=== PATIENT | female | born 1960 ===

== ENCOUNTER 2023-09-09 11:25 | Outpatient (AMB) | payer OTHER, SELFPAY ==
--- NOTE | 2023-09-09 11:26 | HO.NEPHOV ---
HPI HPI Comments History of Present Illness Details Middle-aged woman with the history of obesity and hypertension. She continues to struggle with her weight. She has no specific complaints today [facility] Social History (Updated 09/09/23 @ 11:29 by Kathy Schmidt MA) Alcohol intake: never Patient Tobacco Use Status: Never used Tobacco Vital Signs 09/09/23 11:27 Height 5 ft 4 in Weight 236 lb BMI 40.5 BP 124/80 Blood Pressure Location Lt brachial Position Sitting Pulse 67 Pulse Source Pulse Oximeter Pulse Oximetry (%) 99 Oxygen Delivery Method Room Air Physical Exam Vital Signs: Last Vital Signs Pulse 67 09/09/23 11:27 BP 124/80 09/09/23 11:27 Pulse Ox 99 09/09/23 11:27 Oxygen Delivery Method Room Air 09/09/23 11:27 BMI result Body Mass Index 40.5 Const General: comfortable Nutritional Appearance: well nourished Orientation/consciousness: patient oriented x3 HEENT Head: No normal to inspection Mouth: moist mucous membranes Neck Neck: Yes supple and Yes no JVD Resp Auscultation: clear to auscultation bilaterally, no rales and rub present Cardio Jugular venous distension: no JVD Palpation: no palpable S3 and no palpable S4 Heart sounds: no rubs GI Palpation (GI): Soft to palpation and nontender Percussion: No Fluid wave present General: Yes no CVA tenderness Back/Spine/Pelvis Back: no CVA tenderness Skin General skin exam: no rashes or lesions noted Neuro General: patient oriented x3 Extrem General: Yes no pedal edema and No clubbing Assessment & Plan Assessment & Plan (1) HTN (hypertension): Code(s): I10 - Essential (primary) hypertension (2) Obesity: Code(s): E66.9 - Obesity, unspecified Plan Middle-aged woman with obesity and hypertension. Blood pressure is well controlled at this time. I have not made any changes to her medications I have encouraged her to stay on low-sodium diet. At her request I a rehab referred her to the weight management clinic. Orders: Referrals Medical Weight Management Referral E66.9 - Obesity, unspecified, I10 - Essential (primary) hypertension Coding Level of Care Code Est Pt Level 4 (32660) Diagnoses HTN (hypertension) I10 Obesity E66.9 Results Reviewed Results Reviewed: Labs labs pending Nephrology Results: No Data to Display
[2023-09-09 11:27] VITALS: BP 124/80; PULSE 67; O2SAT 99; BMI 40.5
== END 2023-09-09 11:45 | disposition home or self-care (01) ==
PROVIDERS: PCP Internal Medicine; Visit Provider Internal Medicine Hypertension Specialist
DX: I10 Essential (primary) hypertension (principal); E66.9 Obesity, unspecified
CPT/HCPCS: 99214

== ENCOUNTER → 2023-09-09 11:25 | Outpatient (BNVA) | payer OTHER, SELFPAY | PROVIDERS: PCP Internal Medicine; Visit Provider Internal Medicine Hypertension Specialist | DX: I10 Essential (primary) hypertension (principal); E66.9 Obesity, unspecified; Z68.41 Body mass index [BMI] 40.0-44.9, adult | CPT/HCPCS: 99212 ==

== ENCOUNTER → 2023-09-28 08:44 | Outpatient (BNVA) | payer OTHER, SELFPAY | PROVIDERS: PCP Internal Medicine; Visit Provider Surgery ==

== ENCOUNTER 2023-10-22 13:00 | Outpatient (AMB) | payer OTHER, SELFPAY ==
--- NOTE | 2023-10-22 13:03 | MHC.OFFVISWM ---
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 . Her goal is to lose weigh about 197 lbs (30 lbs loss). She reports first being concerned about her weight when started developing medical conditions about 2 years ago. . She has tried multiple methods of weight loss including stopped junk food and eating healthier and increased exercise without permanent results. She lives alone. She is retired. Was given BP med by her PCP , has not been taking and can't the bottle today. SBP yesterday at medical office was 119 per patient. Has DOC - but doesn't use CPAP She has made the following meal changes over the last 2 months - has lost 16 lbs She wakes at: 5-6 am, bed at 10 - 11 pm Breakfast: Diet Snapple. 9am - feliciano and eggs Lunch: skips lunch 1-2 d/ week. Tuna salad - whole can, lettuce and tomato with 0 carb tortilla. Diet Gatorade Dinner: 6pm -fish and spinach (butter) with cauliflower rice. water After dinner: 11 pm- Yogurt, Chobani 0 sugar Other snacks: sugar free jello - once per day. Liquids: rare gingerale, no fruit juice Alcohol intake: none, tobacco: none, marijuana: none Exercise: Chair exercises x up to 30 minutes, 7 days per week. Charisse video - once Last mammogram: 2022 Last pap smear: not needed control method: post menopausal colonoscopy - 2 years ago DESIRAE:0 ESS:12 GERD:20 QOL:112 [facility] Surgical History (Updated 09/28/23 @ 09:02 by Alexia Geronimo CMA) No history of previous surgery Family History (Updated 09/28/23 @ 09:05 by Alexia Geronimo CMA) Mother Alzheimer disease Father Cancer Son No problems noted. Son No problems noted. Daughter No problems noted. Social History (Updated 09/09/23 @ 11:29 by Kathy Schmidt MA) Alcohol intake: never Patient Tobacco Use Status: Never used Tobacco Assessment & Plan Assessment & Plan (1) Morbid obesity: Code(s): E66.01 - Morbid (severe) obesity due to excess calories Plan: This is a 63 yo woman with morbid obesity and HTN who will start MWL. Blood work has been ordered. She will start MWL classes and watch all classes before appt with Yanira. Should have BMI less than 30 - weight less than 175. 1. Adequate sleep of 7-8 hours per night discussed 2. Healthy meal plan - stop skipping meals and stop Gatorade and Diet Snapple sweetened drinks All meals/MR's need to take 20 minutes to complete. 9 am - protein shake with water or UAM (Premeir or Orgain - if powder mix with 8 oz water) 12 pm - can of tuna or grilled chicken with salad - no tortilla 3 pm- yogurt 6 pm- dinner of 12 forks lean protein, 12 forks vegetable, 1 cup berries Exercise - Chair exercises every day. LS 1 mile videos- 17 minutes every day Pt will purchase body composition analyzer (recommended list given to patient) and weight herself weekly. Next appt with Yanira in 4 weeks, in 8 weeks. Text me with any questions and weekly weights Mondays. Patient is morbidly obese and is not considered stable at this time.?I spent a total of 60 minutes reviewing/updating records, examining the patient and counseling the patient on weight management as detailed above. (2) HTN (hypertension): Code(s): I10 - Essential (primary) hypertension Plan: MUST take her HTN meds and discuss with PCP (3) Obstructive sleep apnea: Comment: not using CPAP Code(s): G47.33 - Obstructive sleep apnea (adult) (pediatric) Plan: discussed why treatment of DOC is essential (4) GERD with apnea: Code(s): K21.9 - Gastro-esophageal reflux disease without esophagitis; R06.81 - Apnea, not elsewhere classified Plan: see above Telehealth Telehealth Location of provider rendering services: practice address Location of patient: address on file Patient Identification confirmed using: Name, : Yes Telehealth method: video Patient verbally consented to treatment: Yes Patient verbally consented to billing insurance company: Yes Patient informed of any privacy concerns related to visit: Yes Coding Level of Care Code Tele New Pt Level 5 (45753) Diagnoses Morbid obesity E66.01 HTN (hypertension) I10 Obstructive sleep apnea G47.33 GERD with apnea K21.9; R06.81
== END 2023-10-22 13:50 | disposition home or self-care (01) ==
LOC: HO.HBS 13:35
PROVIDERS: PCP Internal Medicine; Visit Provider Physician Assistant
DX: E66.01 Morbid (severe) obesity due to excess calories (principal); I10 Essential (primary) hypertension; G47.33 Obstructive sleep apnea (adult) (pediatric); K21.9 Gastro-esophageal reflux disease without esophagitis; R06.81 Apnea, not elsewhere classified
CPT/HCPCS: 99443

== ENCOUNTER → 2023-10-22 13:00 | Outpatient (BNVA) | payer OTHER, SELFPAY | PROVIDERS: PCP Internal Medicine; Visit Provider Physician Assistant ==

== ENCOUNTER 2023-11-25 14:10 | Outpatient (AMB) | payer OTHER, SELFPAY ==
--- NOTE | 2023-11-25 13:13 | MHC.AMNUTRGE ---
Intake Intake Visit Reasons: VIDEO initial nutrition MWL Allergies Bactrim Allergy (Unknown, Uncoded 09/06/19 00:00) diarrhea Cyclobenzaprine Allergy (Unknown, Uncoded 09/06/19 00:00) itching Pain Meds Allergy (Unknown, Uncoded 09/06/19 00:00) vomiting Penicillins Allergy (Unknown, Uncoded 09/06/19 00:00) rash Sulfamethoxazole Allergy (Unknown, Uncoded 09/06/19 00:00) nausea and vomiting HPI Nutrition Presentation Reason for consult elevated BMI Unstable SDH Reports transportation Diet Assmnt Details Pt started last month with MWL but states she doesn't feel she is doing well. I thought I could do this on my own but I need surgery If i know I am having surgery I will stick to the plan , Not being able to eat certain things is too hard Todays intake 1 egg with 2 pieces of feliciano salad with tuna, spinach 6-7pm dinner Dietary counseling reduction Diagnosis Nutrition problem #1 overweight/obesity As related to (etiology) #1 excess energy intake and physical inactivity As evidenced by (sign/symptom) #1 high BMI Monitoring/Goals Nutrition problem monitoring total energy intake, level of knowledge/skill, total PRO intake, total CHO intake and weight Outcome progress not progressing Learning/Education Readiness to learn fair Stages of change contemplation Most Recent Diabetes Results: No Data to Display [facility] Surgical History (Updated 09/28/23 @ 09:02 by Alexia Geronimo CMA) No history of previous surgery Family History (Updated 09/28/23 @ 09:05 by Alexia Geronimo CMA) Mother Alzheimer disease Father Cancer Son No problems noted. Son No problems noted. Daughter No problems noted. Social History (Updated 09/09/23 @ 11:29 by Kathy Schmidt MA) Alcohol intake: never Patient Tobacco Use Status: Never used Tobacco Assessment & Plan Assessment & Plan (1) Morbid obesity: Code(s): E66.01 - Morbid (severe) obesity due to excess calories Plan long discussion regarding internal vs external motivation. She still feels that she wants to pursue bariatric surgery but needs to address expectations and intentions . educated pt today on post op nutrition as well as general nut recs for weight loss. Telehealth Telehealth Location of provider rendering services: practice address Location of patient: address on file Patient Identification confirmed using: Name, : Yes Telehealth method: voice only Patient verbally consented to treatment: Yes Patient verbally consented to billing insurance company: Yes Patient informed of any privacy concerns related to visit: Yes Minutes spent on Phone/Video with Pt.: 30 Coding Level of Care Code Nutr Indiv Intake (20538) Diagnoses Morbid obesity E66.01 Time Spent (min) 30
== END 2023-11-25 14:22 | disposition home or self-care (01) ==
LOC: HO.HBS 14:11
PROVIDERS: PCP Internal Medicine; Visit Provider Dietitian, Registered
DX: E66.01 Morbid (severe) obesity due to excess calories (principal)

== ENCOUNTER → 2023-11-25 14:10 | Outpatient (BNVA) | payer OTHER, SELFPAY | PROVIDERS: PCP Internal Medicine; Visit Provider Dietitian, Registered | DX: E66.01 Morbid (severe) obesity due to excess calories (principal) | CPT/HCPCS: 97802 ==

== ENCOUNTER 2023-12-16 07:29 | Outpatient (REF) | payer OTHER, SELFPAY ==
--- NOTE | ~2023-12-16 | XR_ITS ---
EXAMINATION: XR CHEST CLINICAL INFORMATION: Morbid (severe) obesity due to excess calories COMPARISON: None available. TECHNIQUE: 2 views of the chest were obtained. FINDINGS: No significant abnormality is noted involving the heart, lungs, mediastinum, bony thorax or soft tissues. XR/XR chest 2V IMPRESSION: No acute cardiopulmonary disease.
--- NOTE | ~2023-12-16 | US_ITS ---
EXAMINATION: US COMPLETE ABDOMEN WITH LIVER ELASTOGRAPHY CLINICAL INFORMATION: Morbid obesity. COMPARISON: None available. TECHNIQUE: Real-time imaging of the abdominal viscera. Noninvasive ultrasound liver fibrosis assessment is performed using Ann ElastPQ point quantification shear wave elastography (2D-SWE) with a C5-2 MHz transducer. Multiple elastography samples are obtained. FINDINGS: PANCREAS: Limited. The visualized pancreatic head and body are normal in appearance. The remainder of the pancreas is obscured from visualization by the overlying bowel gas. ABDOMINAL AORTA: The proximal segment is nonaneurysmal. The mid and distal segments are obscured by overlapping bowel gas. INFERIOR VENA CAVA: Visualized portions are normal. LIVER: Normal. The liver demonstrates normal size, contour and echogenicity. No focal lesion or intrahepatic biliary duct dilatation. The right lobe measures 16.4 cm in length. The left lobe measures 14.1 cm in length. Portal flow is towards the liver (hepatopetal). Shear wave liver elastography median stiffness is 1.3 m/s (reference: normal median stiffness is 1.3 m/s or less). IQR/median stiffness to assess sampling precision is 0.10 (reference: good quality data set is IQR/median stiffness of 0.15 or less). GALLBLADDER: Surgically absent. COMMON BILE DUCT: Normal in caliber measuring 0.6 cm in diameter. RIGHT KIDNEY: At the interpolar aspect, a 3 mm nonobstructing calculus is seen. There is moderate hydronephrosis. No focal parenchymal solid lesions. At the lower pole, a 1.4 cm benign, simple cyst is seen, which require no imaging follow-up. The kidney measures 10.7 cm in maximum dimension. LEFT KIDNEY: At the upper pole, a 3 mm nonobstructing calculus is seen. There is mild hydronephrosis. No focal parenchymal lesions. The kidney measures 10.6 cm in maximum dimension. SPLEEN: Normal. The spleen measures 11.3 cm in maximum dimension. FREE FLUID: None. US/US abdomen comp w elastography IMPRESSION: 1. Liver elastography: In the absence of other known clinical signs, measurements rule out compensated advanced chronic liver disease. If there are known clinical signs, further testing may be needed for confirmation. 2. There are nonobstructing bilateral renal calculi, as detailed. 3. There is moderate right and mild left hydronephrosis. 4. The gallbladder is surgically absent. 5. Technically limited examination, in particular of the pancreas and abdominal great vessels. REFERENCE: Society of Radiologists in Ultrasound Liver Stiffness Thresholds (2020): LIVER STIFFNESS THRESHOLDS: *Liver Stiffness equal or less than 1.3 m/s: High probability of being normal. *Liver Stiffness less than 1.7 m/s: In the absence of other known clinical signs, rules out compensated advanced chronic liver disease. *Liver Stiffness 1.7-2.1 m/s: Suggestive of compensated advanced chronic liver disease but need further test for confirmation. *Liver Stiffness over 2.1 m/s: Rules in compensated advanced chronic liver disease. *Liver Stiffness over 2.4 m/s: Suggestive of clinically significant portal hypertension. QUALITY OF DATA SET: *IQR/Median value equal or less than 0.15 implies a quality data set. *IQR/Median value over 0.15 implies a poor quality data set. SIGNIFICANT CHANGE FROM PRIOR EXAM: Significant change if liver stiffness measurement is 10% or greater from prior exam. OTHER CONSIDERATIONS: The stage of liver fibrosis may be overestimated in the setting of acute hepatitis, liver inflammation, elevated liver function tests, hepatic vascular congestion, obstructive cholestasis, non-fasting state, and infiltrative diseases such as amyloidosis and lymphoma. In some patients with NAFLD, the liver stiffness thresholds for compensated advanced chronic liver disease may be lower. In causes other than viral hepatitis and NAFLD, liver stiffness thresholds are not well established.
[2023-12-16 07:54] LABS: MANUAL DIFF FLAG NO
[2023-12-16 08:32] LABS: Basophils Percent Auto 0.5 % (0-2); Eosinophils Absolute Auto 0.2 X10*3/uL (0.0-0.4); Eosinophils Percent Auto 2.5 % (0-4); Hematocrit 40.9 % (37.0-47.0); Hemoglobin 12.8 g/dl (12.0-16.0); Imm Gran Abs Auto 0.02 X10*3/uL (0.00-0.03); Imm Gran Pct Auto 0.3 % (0.0-0.4); Lymphocytes Absolute Auto 1.3 X10*3/uL (1.2-4.9); Lymphocytes Percent Auto 21.8 % (20-40); Mean Corpuscular HGB Conc 31.3 g/dl (31.0-35.0); Mean Corpuscular Hemoglobin 27.1 pg (27.0-33.0); Mean Corpuscular Volume 86.5 fL (80.0-98.0); Mean Platelet Volume 11.9 fL (9.4-12.3); Monocytes Absolute Auto 0.5 X10*3/uL (0.1-1.2); Monocytes Percent Auto 7.7 % (2-11); Neutrophils Percent Auto 67.2 % (45-73); Platelet Count 180 X10*3/uL (160-400); Red Blood Count 4.73 X10*6/uL (4.20-5.50); Red Cell Distribution Width 15.7 % (11.0-16.0)
[2023-12-16 08:33] LABS: Estimated Average Glucose 105 mg/dL; Hemoglobin A1c % 5.3 % (<6.0)
--- NOTE | 2023-12-16 08:52 | ECG_ITS ---
Test Reason : obesity Blood Pressure : / mmHG Vent. Rate : 063 BPM Atrial Rate : 063 BPM P-R Int : 146 ms QRS Dur : 082 ms QT Int : 412 ms P-R-T Axes : 054 038 048 degrees QTc Int : 421 ms Normal sinus rhythm Normal ECG No previous ECGs available Referred By: Kasia Cuevas Electronically Signed By:Gonzalez Cruz
[2023-12-16 09:13] LABS: Alanine Aminotransferase 13 U/L (0-31); Albumin Level 3.7 g/dL (3.5-5.0); Alkaline Phosphatase 93 U/L (39-117); Anion Gap 10 (12-20); Aspartate Amino Transferase 10 U/L (5-31); Bilirubin Total 0.4 mg/dL (0.0-1.0); Blood Urea Nitrogen 15 mg/dL (9-16); C Reactive Protein 1.08 mg/dL (< or = 0.50); Calcium 9.3 mg/dL (8.4-10.2); Carbon Dioxide 26 mmol/L (22-29); Chloride 109 mmol/L (96-108); Cholesterol 166 mg/dL (<200); Estimated Glomerular Filt Rate 47; Glucose Random 94 mg/dL (60-115); HDL Cholesterol 34 mg/dL (>40); Iron 48 mcg/dL (30-160); LDL Cholesterol Calculated 105 mg/dL (<100); Percent Iron Saturation 22 % (15-50); Potassium 3.9 mmol/L (3.3-5.1); Sodium 141 mmol/L (135-145); Total Iron Binding Capacity 222 mcg/dL (228-428); Total Protein 7.1 g/dL (6.5-8.0); Triglycerides 139 mg/dL (<150); Unsaturated Iron Binding 174 ug/dL
[2023-12-16 09:22] LABS: Folate 5.3 ng/mL (> or = 4.0); Vitamin B12 413 pg/mL (200-900)
[2023-12-16 09:31] LABS: Ferritin 200 ng/mL (10-250); TSH reflex Free T4 2.86 uIU/mL (0.32-4.0); Vitamin D 25-OH Total 24.8 ng/mL (>30)
[2023-12-16 11:30] LABS: Insulin 10 uU/mL (2-29)
[2023-12-18 17:52] LABS: Zinc 63 mcg/dL (60-130)
[2023-12-21 02:59] LABS: Vitamin A 55 mcg/dL (38-98)
[2023-12-22 14:47] LABS: Vitamin B1 9 nmol/L (8-30)
== END 2023-12-16 07:30 | disposition home or self-care (01) ==
LOC: HO.US 07:29
PROVIDERS: PCP Internal Medicine; Visit Provider Physician Assistant
DX: E66.01 Morbid (severe) obesity due to excess calories (principal); I10 Essential (primary) hypertension; K21.9 Gastro-esophageal reflux disease without esophagitis; G47.33 Obstructive sleep apnea (adult) (pediatric)
CPT/HCPCS: 36415; 71046; 76700; 76981; 80053; 80061; 82306; 82607; 82728; 82746; 83036; 83525; 83540; 84425; 84443; 84590; 84630; 85025; 86140; 93005

== ENCOUNTER → 2023-12-16 08:52 | Outpatient (BNV) | payer OTHER, SELFPAY | PROVIDERS: PCP Internal Medicine; Visit Provider Internal Medicine Cardiovascular Disease | DX: I10 Essential (primary) hypertension (principal); E66.01 Morbid (severe) obesity due to excess calories | CPT/HCPCS: 93010 ==

== ENCOUNTER 2023-12-17 11:30 | Outpatient (AMB) | payer OTHER, SELFPAY ==
--- NOTE | 2023-12-17 11:27 | A.OFFVIS_ITS ---
Intake VS Expanded 12/17/23 11:40 Height 5 ft 4 in Weight 225 lb BMI 38.6 Intake Visit Reasons: VIDEO F/U MWL Allergies Bactrim Allergy (Unknown, Uncoded 09/06/19 00:00) diarrhea Cyclobenzaprine Allergy (Unknown, Uncoded 09/06/19 00:00) itching Pain Meds Allergy (Unknown, Uncoded 09/06/19 00:00) vomiting Penicillins Allergy (Unknown, Uncoded 09/06/19 00:00) rash Sulfamethoxazole Allergy (Unknown, Uncoded 09/06/19 00:00) nausea and vomiting HPI HPI Comments History of Present Illness Details [facility] follow up - now changing to [facility] . 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 Meal plan 9am - 1 pancake with syrup, 1 boiled egg and water 1pm - 8 oz ?- tuna fish package with let tuce and tomato, water 6pm- air fried chicken and either [place] spinach or cauliflower - not measuring portion size . water 10 pm -canned fruit cup Exercise - Chair exercises - daily for 30 minutes. - Never looked at LS videos. We discussed the following plan: but she did not start this. 9 am - protein shake with water or UAM (Premeir or Orgain - if powder mix with 8 oz water) 12 pm - can of tuna or grilled chicken with salad - no tortilla 3 pm- yogurt 6 pm- dinner of 12 forks lean protein, 12 forks vegetable, 1 cup berries Exercise - Chair exercises every day. LS 1 mile videos- 17 minutes every day [facility] Surgical History (Updated 09/28/23 @ 09:02 by Alexia Geronimo CMA) No history of previous surgery Family History (Updated 09/28/23 @ 09:05 by Alexia Geronimo CMA) Mother Alzheimer disease Father Cancer Son No problems noted. Son No problems noted. Daughter No problems noted. Social History (Updated 09/09/23 @ 11:29 by Kathy Schmidt MA) Alcohol intake: never Patient Tobacco Use Status: Never used Tobacco Assessment & Plan Assessment & Plan (1) Morbid obesity: Code(s): E66.01 - Morbid (severe) obesity due to excess calories Plan: Has not started our meal or exercise plans, watched all HFL classes (?). She has gained 14 lbs since September and became tearful when thinking about making the changes she would need to make to be in our program. Will be treated soon for her chronic pain and will call us back once she feels ready to rejoin the program. Patient is still morbidly obese and is not considered stable at this time. I sp ent 28 minutes in total speaking with the patient via video conference counseling , reviewing records and charting in patients chart. . (2) HTN (hypertension): Code(s): I10 - Essential (primary) hypertension (3) Obstructive sleep apnea: Comment: not using CPAP Code(s): G47.33 - Obstructive sleep apnea (adult) (pediatric) (4) GERD with apnea: Code(s): K21.9 - Gastro-esophageal reflux disease without esophagitis; R06.81 - Apnea, not elsewhere classified Plan see above Telehealth Telehealth Location of provider rendering services: practice address Location of patient: address on file Patient Identification confirmed using: Name, : Yes Telehealth method: video Patient verbally consented to treatment: Yes Patient verbally consented to billing insurance company: Yes Patient informed of any privacy concerns related to visit: Yes Coding Level of Care Code Tele Est Pt Level 4 (55580) Diagnoses Morbid obesity E66.01 HTN (hypertension) I10 Obstructive sleep apnea G47.33 GERD with apnea K21.9; R06.81
[2023-12-17 11:40] VITALS: BMI 38.6
== END 2023-12-17 11:54 | disposition home or self-care (01) ==
LOC: HO.HBS 11:46
PROVIDERS: PCP Internal Medicine; Visit Provider Physician Assistant
DX: E66.01 Morbid (severe) obesity due to excess calories (principal); Z68.38 Body mass index [BMI] 38.0-38.9, adult; I10 Essential (primary) hypertension; G47.33 Obstructive sleep apnea (adult) (pediatric)
CPT/HCPCS: 99214

== ENCOUNTER → 2023-12-17 11:30 | Outpatient (BNVA) | payer OTHER, SELFPAY | PROVIDERS: PCP Internal Medicine; Visit Provider Physician Assistant ==

== ENCOUNTER 2024-01-13 10:36 | Outpatient (AMB) | payer OTHER, SELFPAY ==
[2024-01-13 10:39] VITALS: BP 140/78; PULSE 113; O2SAT 97; BMI 38.8
--- NOTE | 2024-01-13 10:39 | HO.NEPHOV_ITS ---
Vital Signs 01/13/24 10:39 Height 5 ft 4 in Weight 226 lb BMI 38.8 BP 140/78 H Blood Pressure Location Lt brachial Position Sitting Pulse 113 H Pulse Source Pulse Oximeter Pulse Oximetry (%) 97 Oxygen Delivery Method Room Air Intake Visit Reasons: Hypertension Pattern Worker Required: No Accompanied by: Self / Same As Patient Allergies Bactrim Allergy (Unknown, Uncoded 09/06/19 00:00) diarrhea Cyclobenzaprine Allergy (Unknown, Uncoded 09/06/19 00:00) itching Pain Meds Allergy (Unknown, Uncoded 09/06/19 00:00) vomiting Penicillins Allergy (Unknown, Uncoded 09/06/19 00:00) rash Sulfamethoxazole Allergy (Unknown, Uncoded 09/06/19 00:00) nausea and vomiting HPI Comments Details: Middle-aged woman with the history of obesity and hypertension. She continues to struggle with her weight. She was evaluated by the weight management Clinic and she needs further follow- up. She underwent abdominal ultrasonogram showed bilateral hydronephrosis more on the right. She also has renal stones. She is asymptomatic. [facility] Surgical History No history of previous surgery Family History Mother Alzheimer disease Father Cancer Son No problems noted. Son No problems noted. Daughter No problems noted. Social History Alcohol intake: never Patient Tobacco Use Status: Never used Tobacco Physical Exam Vital Signs: Last Vital Signs Pulse 113 H 01/13/24 10:39 BP 140/78 H 01/13/24 10:39 Pulse Ox 97 01/13/24 10:39 Oxygen Delivery Method Room Air 01/13/24 10:39 BMI result Body Mass Index 38.8 Const General: comfortable Nutritional Appearance: well nourished Orientation/consciousness: patient oriented x3 HEENT Head: No normal to inspection Mouth: moist mucous membranes Neck Neck: Yes supple and Yes no JVD Resp Auscultation: clear to auscultation bilaterally, no rales and rub present Cardio Jugular venous distension: no JVD Palpation: no palpable S3 and no palpable S4 Heart sounds: no rubs GI Palpation (GI): Soft to palpation and nontender Percussion: No Fluid wave present General: Yes no CVA tenderness Back/Spine/Pelvis Back: no CVA tenderness Skin General skin exam: no rashes or lesions noted Neuro General: patient oriented x3 Extrem General: Yes no pedal edema and No clubbing Results Reviewed Results Reviewed: Abd USG _ November 2023 RIGHT KIDNEY: At the interpolar aspect, a 3 mm nonobstructing calculus is seen. There is moderate hydronephrosis. No focal parenchymal solid lesions. At the lower pole, a 1.4 cm benign, simple cyst is seen, which require no imaging follow-up. The kidney measures 10.7 cm in maximum dimension. LEFT KIDNEY: At the upper pole, a 3 mm nonobstructing calculus is seen. There is mild hydronephrosis. No focal parenchymal lesions. The kidney measures 10.6 cm in maximum dimension. Nephrology Results: Hgb 12.8 g/dl (12.0-16.0) 12/16/23 WBC 6.0 X10*3/uL (4.8-10.8) 12/16/23 Plt Count 180 X10*3/uL (160-400) 12/16/23 Sodium 141 mmol/L (135-145) 12/16/23 Potassium 3.9 mmol/L (3.3-5.1) 12/16/23 Chloride 109 mmol/L (96-108) H 12/16/23 Carbon Dioxide 26 mmol/L (22-29) 12/16/23 BUN 15 mg/dL (9-16) 12/16/23 Creatinine 1.15 mg/dL (0.5-1.4) 12/16/23 Calcium 9.3 mg/dL (8.4-10.2) 12/16/23 Assessment & Plan Assessment & Plan (1) HTN (hypertension): Code(s): I10 - Essential (primary) hypertension Category: Medical Plan: Blood pressure acceptable Stay on low-sodium diet She needs weight loss No change in medications (2) Hydronephrosis: Code(s): N13.30 - Unspecified hydronephrosis Category: Medical Plan: Abdominal ultrasonogram in November showed bilateral hydronephrosis. With renal stones and simple cyst Follow-up renal ultrasound ordered Renal function is unchanged with a creatinine 1.15. Based on renal ultrasonogram she may require Urology follow-up. (3) Nephrolithiasis: Code(s): N20.0 - Calculus of kidney Category: Medical Plan: Recent abdominal ultrasonogram reveals renal stones. Order 24 hour urine for stone studies Stay on low-sodium diet Increase fluid intake to maintain urine output of 2 L. (4) Obesity: Code(s): E66.9 - Obesity, unspecified Category: Medical Plan Needs follow-up with weight loss clinic Orders: Orders Basic Metabolic Panel 4 Months I10 - Essential (primary) hypertension Total Protein Urine Random 4 Months I10 - Essential (primary) hypertension Sodium, 24Hr Urine Group Today I10 - Essential (primary) hypertension, N13.30 - Unspecified hydronephrosis, N20.0 - Calculus of kidney Creatinine, 24 Hr Group Today I10 - Essential (primary) hypertension, N13.30 - Unspecified hydronephrosis, N20.0 - Calculus of kidney Calcium, 24 Hr Ur Today I10 - Essential (primary) hypertension, N13.30 - Unspecified hydronephrosis, N20.0 - Calculus of kidney Citric Acid 24hr Urine Today I10 - Essential (primary) hypertension, N13.30 - Unspecified hydronephrosis, N20.0 - Calculus of kidney UA and rflx microscopic 4 Months I10 - Essential (primary) hypertension Creatinine Urine 4 Months I10 - Essential (primary) hypertension, N05.9 - Unspecified nephritic syndrome with unspecified morphologic changes US renal BI Today N13.30 - Unspecified hydronephrosis Oxalate, 24 Hr Today I10 - Essential (primary) hypertension, N13.30 - Unspecified hydronephrosis, N20.0 - Calculus of kidney Uric Acid, 24Hr Urine Group Today I10 - Essential (primary) hypertension, N13.30 - Unspecified hydronephrosis, N20.0 - Calculus of kidney Coding Level of Care Code Est Pt Level 4 (44054) Diagnoses HTN (hypertension) I10 Hydronephrosis N13.30 Nephrolithiasis N20.0 Obesity E66.9
== END 2024-01-13 10:57 | disposition home or self-care (01) ==
LOC: HO.HKAS 10:36
PROVIDERS: PCP Internal Medicine; Visit Provider Internal Medicine Hypertension Specialist
DX: I10 Essential (primary) hypertension (principal); N13.30 Unspecified hydronephrosis; N20.0 Calculus of kidney; E66.9 Obesity, unspecified
CPT/HCPCS: 99214

== ENCOUNTER → 2024-01-13 10:36 | Outpatient (BNVA) | payer OTHER, SELFPAY | PROVIDERS: PCP Internal Medicine; Visit Provider Internal Medicine Hypertension Specialist | DX: N13.30 Unspecified hydronephrosis (principal); N20.0 Calculus of kidney; I10 Essential (primary) hypertension; E66.9 Obesity, unspecified; Z68.38 Body mass index [BMI] 38.0-38.9, adult | CPT/HCPCS: 99212 ==

== ENCOUNTER 2024-01-26 07:48 | Outpatient (REF) | payer OTHER, SELFPAY ==
--- NOTE | ~2024-01-26 | US_ITS ---
EXAMINATION: US RETROPERITONEAL LIMITED (RENAL ONLY) CLINICAL INFORMATION: Unspecified hydronephrosis. COMPARISON: Ultrasound abdomen complete 12/16/2023. TECHNIQUE: Real-time imaging of the kidneys. FINDINGS: RIGHT KIDNEY: 12.3 x 5.1 x 7.1 cm (SAG x AP x TRV). The kidney is normal in size, contour, and echogenicity. Renal cortical thickness is normal. No renal calculi or hydronephrosis. There is a lower pole cyst at 9 x 8 x 10 mm. The calyces appear slightly distended. LEFT KIDNEY: 11.0 x 5.1 x 6.3 cm (SAG x AP x TRV). The kidney is normal in size, contour, and echogenicity. Renal cortical thickness is normal. No renal calculi or hydronephrosis. There is a lower pole cyst at 11 x 10 x 11 mm and interpolar cyst at 24 x 18 x 27 mm. The calyces appear slightly distended. US/US renal BI IMPRESSION: Prominent calyces. Bilateral renal cysts. Recommendation is for CT urogram for further evaluation.
== END 2024-01-26 07:49 | disposition home or self-care (01) ==
LOC: HO.US 07:48
PROVIDERS: PCP Internal Medicine; Visit Provider Internal Medicine Hypertension Specialist
DX: N13.30 Unspecified hydronephrosis (principal)
CPT/HCPCS: 76775

== ENCOUNTER 2024-02-02 18:05 | Outpatient (REF) | payer OTHER, SELFPAY ==
[2024-02-02 19:14] LABS: Creatinine, mg/dL 81.71; Creatinine, mg/dL 81.92
[2024-02-02 19:27] LABS: Creatinine, mg/dL 81.78; Uric Acid, mg/dL 41.7 mg/dL
[2024-02-02 20:43] LABS: Creatinine, 24Hr Urine 1.1 G/Day (1.0-2.0); Sodium 24 Hr Urine 206.7 mmol/Day (40-220); Total Volume 24 Hour Urine 1325 mL
[2024-02-02 20:44] LABS: Creatinine, 24Hr Urine 1.1 G/Day (1.0-2.0); Total Volume 24 Hour Urine 1325 mL; Uric Acid, 24 Hr Urine 552.5 mg/Day (250-750)
[2024-02-04 18:58] LABS: Calcium, 24 Hr Urine 56 mg/24 h; Calcium/Creatinine Ratio 48 mg/g creat (30-275); Creatinine 24Hr Urine 1.17 g/24 h (0.50-2.15)
[2024-02-09 04:54] LABS: 24hr Urine Total Volume 1325 mL; Creatinine, 24U 1.17 g/24 h (0.50-2.15); Oxalic Acid 24 Urine 40.4 mg/24 h (3.6-38.0)
[2024-02-13 00:38] LABS: Citric Acid, 24hr Urine 258 mg/24 h (100-1300); Citric Acid/Creat Ratio 24U 235 mg/g creat (180-1070)
== END 2024-02-02 18:06 | disposition home or self-care (01) ==
LOC: HO.LNP 18:05
PROVIDERS: Visit Provider Internal Medicine Hypertension Specialist
DX: I10 Essential (primary) hypertension (principal); N20.0 Calculus of kidney; N13.30 Unspecified hydronephrosis
CPT/HCPCS: 82340; 82507; 82570; 83945; 84300; 84560

== ENCOUNTER 2024-02-17 08:24 | Outpatient (AMB) | payer OTHER, SELFPAY ==
[2024-02-17 08:38] VITALS: BP 140/76; PULSE 87; O2SAT 97; BMI 39.5
--- NOTE | 2024-02-17 08:38 | HO.NEPHOV_ITS ---
Vital Signs 02/17/24 08:38 02/17/24 08:49 Height 5 ft 4 in Weight 230 lb BMI 39.5 BP 140/76 H 130/70 Blood Pressure Location Lt brachial Lt brachial Position Sitting Sitting Pulse 87 Pulse Source Pulse Oximeter Pulse Oximetry (%) 97 Oxygen Delivery Method Room Air Intake Visit Reasons: Hypertension/ Confirmed Business Intelligence Analyst Required: No Allergies Bactrim Allergy (Unknown, Uncoded 09/06/19 00:00) diarrhea Cyclobenzaprine Allergy (Unknown, Uncoded 09/06/19 00:00) itching Pain Meds Allergy (Unknown, Uncoded 09/06/19 00:00) vomiting Penicillins Allergy (Unknown, Uncoded 09/06/19 00:00) rash Sulfamethoxazole Allergy (Unknown, Uncoded 09/06/19 00:00) nausea and vomiting Medication List - Last Reconciled 02/17/24 by Dawit Blake MD cholecalciferol (vitamin D3) 25 mcg PO DAILY gabapentin 300 mg PO BID lorazepam 0.5 mg PO BID PRN melatonin 10 mg PO BEDTIME PRN oxycodone 5 mg PO BID PRN pantoprazole 40 mg PO DAILY zolpidem 5 mg PO BEDTIME PRN HPI Comments Details: Middle-aged woman with the history of obesity and hypertension. She continues to struggle with her weight. She was evaluated by the weight management Clinic and she needs further follow- up. She underwent abdominal ultrasonogram showed bilateral hydronephrosis more on the right. She also has renal stones. She is asymptomatic. Currently on HCTZ 12.5 mg QD PFSH Surgical History No history of previous surgery Family History Mother Alzheimer disease Father Cancer Son No problems noted. Son No problems noted. Daughter No problems noted. Social History Alcohol intake: never Patient Tobacco Use Status: Never used Tobacco Physical Exam Vital Signs: Last Vital Signs Pulse 87 02/17/24 08:38 BP 140/76 H 02/17/24 08:38 Pulse Ox 97 02/17/24 08:38 Oxygen Delivery Method Room Air 02/17/24 08:38 BMI result Body Mass Index 39.5 Const General: comfortable Nutritional Appearance: well nourished Orientation/consciousness: patient oriented x3 HEENT Head: No normal to inspection Mouth: moist mucous membranes Neck Neck: Yes supple and Yes no JVD Resp Auscultation: clear to auscultation bilaterally, no rales and rub present Cardio Jugular venous distension: no JVD Palpation: no palpable S3 and no palpable S4 Heart sounds: no rubs GI Palpation (GI): Soft to palpation and nontender Percussion: No Fluid wave present General: Yes no CVA tenderness Back/Spine/Pelvis Back: no CVA tenderness Skin General skin exam: no rashes or lesions noted Neuro General: patient oriented x3 Extrem General: Yes no pedal edema and No clubbing Results Reviewed Nephrology Results: Hgb 12.8 g/dl (12.0-16.0) 12/16/23 WBC 6.0 X10*3/uL (4.8-10.8) 12/16/23 Plt Count 180 X10*3/uL (160-400) 12/16/23 Sodium 141 mmol/L (135-145) 12/16/23 Potassium 3.9 mmol/L (3.3-5.1) 12/16/23 Chloride 109 mmol/L (96-108) H 12/16/23 Carbon Dioxide 26 mmol/L (22-29) 12/16/23 BUN 15 mg/dL (9-16) 12/16/23 Creatinine 1.15 mg/dL (0.5-1.4) 12/16/23 Calcium 9.3 mg/dL (8.4-10.2) 12/16/23 Renal US 01/26/24 Assessment & Plan Assessment & Plan (1) HTN (hypertension): Code(s): I10 - Essential (primary) hypertension Category: Medical Plan: Blood pressure acceptable Stay on HCTZ 12.5 mg QD Stay on low-sodium diet She needs weight loss No change in medications (2) Hydronephrosis: Code(s): N13.30 - Unspecified hydronephrosis Category: Medical Plan: Abdominal ultrasonogram in November showed bilateral hydronephrosis. With renal stones and simple cyst Follow-up renal ultrasound did NOT show any hydronephrosis Renal function is unchanged with a creatinine 1.15. (3) Obesity: Code(s): E66.9 - Obesity, unspecified Category: Medical (4) Nephrolithiasis: Code(s): N20.0 - Calculus of kidney Category: Medical Plan: 24 hr urine shows volume of 1325 Oxalate mildly elevated at 40 Needs to stay on low Oxalate diet - Avoid strawberries, nuts, etc; Discussed with Alexandra Increase PO fluid intake to maintain urine output of 2 L Low salt diet Plan Needs follow-up with weight loss clinic Coding Level of Care Code Est Pt Level 4 (35990) Diagnoses HTN (hypertension) I10 Hydronephrosis N13.30 Obesity E66.9 Nephrolithiasis N20.0
[2024-02-17 08:49] VITALS: BP 130/70
== END 2024-02-17 08:55 | disposition home or self-care (01) ==
PROVIDERS: PCP Internal Medicine; Visit Provider Internal Medicine Hypertension Specialist
DX: I10 Essential (primary) hypertension (principal); N13.30 Unspecified hydronephrosis; E66.9 Obesity, unspecified; N20.0 Calculus of kidney
CPT/HCPCS: 99214

== ENCOUNTER → 2024-02-17 08:24 | Outpatient (BNVA) | payer OTHER, SELFPAY | PROVIDERS: PCP Internal Medicine; Visit Provider Internal Medicine Hypertension Specialist | DX: I10 Essential (primary) hypertension (principal); N13.30 Unspecified hydronephrosis; N20.0 Calculus of kidney; E66.9 Obesity, unspecified; Z68.39 Body mass index [BMI] 39.0-39.9, adult | CPT/HCPCS: 99212 ==

== ENCOUNTER 2024-05-02 08:14 | Emergency (ER) | payer OTHER, SELFPAY ==
--- NOTE | ~2024-05-02 | XR_ITS ---
EXAMINATION: XR LUMBOSACRAL SPINE CLINICAL INFORMATION: Low back pain COMPARISON: None available. TECHNIQUE: Three views of the lumbosacral spine. FINDINGS: 5 nonrib-bearing lumbar-type vertebral bodies. No acute visible fracture or dislocation. Multilevel degenerative changes disc space narrowing, osteophyte formation, and lower lumbar spine facet arthropathy. Vertebral body heights and disc spaces are maintained. Posterior elements are intact. Paraspinal soft tissues are unremarkable. Atherosclerotic calcifications aorta. Degenerative arthropathy of the left femoral acetabular joint. Fecal loading the visualized colon. XR/XR lumbar spine 2-3V IMPRESSION: 1. No acute visible fracture or dislocation. 2. Multilevel degenerative changes.
[2024-05-02 08:17] VITALS: BP 159/64; PULSE 91; RESP 20; TEMP 36.6; O2SAT 97; BMI 40.3
--- NOTE | 2024-05-02 08:32 | ED.BACK ---
HPI - Back Pain/Injury General Chief Complaint: Back Pain/Injury Stated Complaint: l leg pain Time Seen by Provider: 05/02/24 08:32 Source: patient Mode of arrival: ambulatory Limitations: no limitations History of Present Illness ED Provider: KELLEY SHARP PA-C HPI Narrative: 64 year old female with pmhx HTN, morbid obesity, DOC presents to the ED today for evaluation of acute on chronic lumbar back pain x1 week. Patient reports onset of left sided low back pain months ago following mechanical fall. She has followed with both PCP and pain management for this and has trialed gabapentin, oxycodone, and cortisone injections without relief. Admits to completing PT with minimal improvement. Presents today with worsening left lower back pain now radiating down her LLE. Describes pain as a constant burning sensation worse with movement. Not on AC. Denies new trauma or injury. Denies hx of IV drug use. Denies hx of spinal surgery. Denies fever, chills, neck pain, bowel or bladder incontinence or retention, numbness/tingling/weakness in the lower extremities, dysuria, hematuria, saddle anesthesia. Related Data Home Medications ?Medication ?Instructions ?Recorded ?Confirmed lorazepam 0.5 mg tablet 0.5 mg PO BID PRN 10/02/23 02/17/24 pantoprazole 40 mg tablet,delayed 40 mg PO DAILY 10/02/23 02/17/24 release gabapentin 300 mg capsule 300 mg PO BID 10/22/23 02/17/24 melatonin 10 mg capsule 10 mg PO BEDTIME PRN 01/13/24 02/17/24 oxycodone 5 mg tablet 5 mg PO BID PRN 01/13/24 02/17/24 zolpidem 5 mg tablet 5 mg PO BEDTIME PRN 01/13/24 02/17/24 Previous Rx's ?Medication ?Instructions ?Recorded cholecalciferol (vitamin D3) 25 25 mcg PO DAILY #90 caps 12/16/23 mcg (1,000 unit) capsule baclofen 5 mg tablet 5 mg PO BID PRN muscle spasm #10 05/02/24 tabs lidocaine 5 % topical patch 1 patch topical DAILY #15 ea 05/02/24 (Lidoderm) Allergies Allergy/AdvReac Type Severity Reaction Status Date / Time Bactrim Allergy Unknown diarrhea Uncoded 05/02/24 08:25 Cyclobenzaprine Allergy Unknown itching Uncoded 05/02/24 08:25 Penicillins Allergy Unknown rash Uncoded 05/02/24 08:25 Sulfamethoxazole Allergy Unknown nausea and Uncoded 05/02/24 08:25 vomiting Review of Systems Review of Systems: Constitutional: No fever, chills, fatigue, night sweats, weight changes ENT/Mouth: No ear pain, hearing loss, nasal congestion, sinus pain, rhinorrhea, sore throat Eyes: No eye pain, swelling, redness, vision changes, discharge Cardio: No chest pain, palpitations, OJEDA, orthopnea, peripheral edema Pulm: No SOB, cough, sputum, wheezing, dyspnea, hemoptysis GI: No nausea, vomiting, hematemesis, abdominal pain, diarrhea, constipation, hematochezia, melena : No irregular bleeding, dysuria, frequency, urgency, hesitancy, hematuria, flank pain, urinary flow changes, urinary incontinence or retention MSK: +back pain, No neck pain, joint pain, myalgias Skin: No lesions, rashes Neuro: No weakness, numbness, paresthesias, LOC, dizziness, headache All other systems reviewed and are negative. FORMERLY [facility], [facility] Past Medical History Attestation statement: The following information was validated with the patient. Source: old records reviewed and nursing notes reviewed Surgical History No history of previous surgery Family History Family History Mother Alzheimer disease Father Cancer Son No problems noted. Son No problems noted. Daughter No problems noted. Social History Social History Alcohol intake: never Patient Tobacco Use Status: Never used Tobacco Advance Directives: No Advance Directives Information Provided: Yes Physical Exam Vital Signs: Vital Signs: Last Vital Signs Temp 98 F 05/02/24 08:17 Pulse 91 05/02/24 08:17 Resp 20 05/02/24 08:17 BP 159/64 H 05/02/24 08:17 Pulse Ox 97 05/02/24 08:17 O2 Del Method Room Air 05/02/24 08:17 BMI result Body Mass Index 40.3 Vital signs stable, afebrile Const: General: cooperative, healthy appearing, comfortable, no acute distress, alert, awake and Physically active Orientation/consciousness: patient oriented x3 HEENT: Head: Yes normal to inspection, Yes normocephalic and Yes atraumatic Eyes: General: appearance normal, both eyes and all related structures Pupils: Equal, round and reactive pupils present EOM: EOMs intact bilaterally Neck: Other: + no cervical midline spinous tenderness or step-off deformity. Neck: Yes normal visual inspection, Yes full ROM and Yes no meningeal signs Resp: Effort & Inspection: normal respiratory effort Auscultation: clear to auscultation bilaterally Cardio: Rate: regular rate Rhythm: regular rhythm GI: Inspection: Yes normal to inspection Palpation (GI): Soft to palpation and nontender : General: Yes no CVA tenderness Back/Spine/Pelvis: Other: No midline spinous tenderness. No paraspinal muscle tenderness. No step off deformity. Back: no CVA tenderness Neuro: Other: Strength 5/5 intact throughout.? No saddle anesthesia.? Sensation intact to light touch.? Neurovascular intact distally.? General: patient oriented x3, gait normal and no meningeal signs Cranial nerves: Yes Equal, round and reactive pupils present Gait exam (Neuro): Normal gait present Course Course Course Narrative: 1107-- X-ray lumbar spine does not reveal acute fracture. Physical exam and history consistent with sciatica. I have reviewed MENTAL RETARDATION AIDE --- patient has trailed valium (01/18/24), gabapentin (02/29/24), and oxycodone (01/11/24) for her back pain along w/ OTC therapies. > she has received baclofen and lidocaine patch in ED today for treatment. > Will send patient with baclofen and lidocaine patches. advised to follow up with her PCP and pain management as she will likely require more physical therapy. > Patient has remained stable throughout ED visit today. Discussed worrisome signs and symptoms and when to return to the ED. All questions answered at this time. Patient is agreeable with disposition and stable for discharge. Medications Administered Discontinued Medications Generic Name Dose Route Start Last Admin Trade Name Freq PRN Reason Stop Dose Admin Baclofen 10 mg 05/02/24 09:07 05/02/24 09:26 Baclofen 10 Mg Tablet PO 05/02/24 09:08 10 mg ONCE ONE Administration Ketorolac Tromethamine 30 mg 05/02/24 08:45 05/02/24 09:26 Ketorolac Tromethamine 30 Mg/Ml Vial IM 05/02/24 08:46 30 mg ONCE ONE Administration Medical Decision Making Medical Decision Making MDM Narrative: 64 year old female with pmhx HTN, morbid obesity, DOC presents to the ED today for evaluation of acute on chronic lumbar back pain x1 week. Patient is slightly hypertensive to 159/64. Vitals otherwise stable. She is nontoxic-appearing and in no acute distress. On exam, there is no midline spinous tenderness or step-off deformity. She is ambulating with steady gait. Sensation intact to light touch throughout. Strength 5/5 intact throughout. No CVAT bilaterally. Differential diagnosis includes MSK sprain/strain, sciatica, disc herniation, fracture, subluxation. As patient has no urinary symptoms, UTI, pyelo, nephrolithiasis, hydronephrosis less likely. Unlikely cord compression, cauda equina, [place]illain[place], epidural abscess. Plan for imaging, pain control, and re-evaluation. Differential Diagnosis Differential Diagnoses: The differential diagnosis associated with the presentation includes as above Admission/Observation Not indicated. Independent Interpretation I performed an independent interpretation of an: Plain X-Ray Interpretation: X-ray lumbar spine without acute fracture or subluxation, agree with radiologist's interpretation. Radiology Impression Discussion of test interpretation with radiology: I have reviewed the radiologist's reading. Radiologist Impression: EXAMINATION: XR LUMBOSACRAL SPINE CLINICAL INFORMATION: Low back pain COMPARISON: None available. TECHNIQUE: Three views of the lumbosacral spine. FINDINGS: 5 nonrib-bearing lumbar-type vertebral bodies. No acute visible fracture or dislocation. Multilevel degenerative changes disc space narrowing, osteophyte formation, and lower lumbar spine facet arthropathy. Vertebral body heights and disc spaces are maintained. Posterior elements are intact. Paraspinal soft tissues are unremarkable. Atherosclerotic calcifications aorta. Degenerative arthropathy of the left femoral acetabular joint. Fecal loading the visualized colon. XR/XR lumbar spine 2-3V IMPRESSION: 1. No acute visible fracture or dislocation. 2. Multilevel degenerative changes. External Record Review External record reviewed: Inpatient record Chronic Conditions Patient?s care impacted by: Other (chronic back pain) Social Determinants Patient?s care significantly limited by Social Determinants of Health including: Other Social Determinant of Health Critical Care Time Critical Care Time Critical Care Time: No Discharge Plan Discharge Clinical Impression: Sciatica, Lumbar radiculopathy Patient Disposition: Home, Self-Care Instructions: Sciatica (ED), Lumbar Radiculopathy (ED), Back Pain (ED), Lower Back Exercises (ED) Additional Instructions: You were evaluated in the Emergency Department today for your back pain.? Your evaluation did not show signs of medical conditions requiring emergent intervention at this time. Avoid bending, lifting, or twisting. Use ice several times per day for 20 minutes at a time for the next 48 hours and then change to heat. We recommend you take 600mg ibuprofen every 6 hours or tylenol 650mg every 6 hours as needed for pain. If needed, you can alternate these medications so that you take one medication every 3 hours. For example, at noon take ibuprofen, then at 3pm take tylenol, then at 6pm take ibuprofen. Baclofen is a muscle relaxer. Take this at night as it makes you drowsy. Do not drive, drink alcohol, or operate machinery while taking it. Lidoderm patches are numbing patches. Apply to painful areas. Please schedule an appointment for follow-up with your primary care provider this week for further evaluation of your symptoms. You may require another round of physical therapy he definitively treat the pain. In the meantime, you have been provided with low back exercises to perform at home. Return to the Emergency Department if you experience worsening back pain, difficulty walking, fevers, numbness, tingling, incontinence, or any other concerning symptoms. In the case of an emergency call 911. Prescriptions: New baclofen 5 mg tablet 5 mg PO BID PRN (Reason: muscle spasm) Qty: 10 0RF lidocaine [Lidoderm] 5 % adhesive patch,medicated 1 patch topical DAILY Qty: 15 0RF Rx Instructions: leave on most painful area for up to 12 hrs No Action cholecalciferol (vitamin D3) 25 mcg (1,000 unit) capsule 25 mcg PO DAILY Qty: 90 3RF lorazepam 0.5 mg tablet 0.5 mg PO BID PRN pantoprazole 40 mg tablet,delayed release (DR/EC) 40 mg PO DAILY gabapentin 300 mg capsule 300 mg PO BID oxycodone 5 mg tablet 5 mg PO BID PRN zolpidem 5 mg tablet 5 mg PO BEDTIME PRN melatonin 10 mg capsule 10 mg PO BEDTIME PRN Referrals: Haven Adorno MD [Primary Care Provider] - Stand Alone Forms: Work/School Release Print Language: Khmer
[2024-05-02] MEDS: Baclofen 10 MG TABLET PO (09:26)
[2024-05-02] MEDS: Ketorolac Tromethamine 30 MG/ML VIAL IM (09:26)
[2024-05-02 11:23] VITALS: BP 159/64; PULSE 91; RESP 20; TEMP 36.6; O2SAT 97
== END 2024-05-02 11:23 | disposition home or self-care (01) ==
PROVIDERS: Emergency Provider Emergency Medicine Emergency Medical Services; PCP Internal Medicine
DX: M54.42 Lumbago with sciatica, left side (principal); Z79.899 Other long term (current) drug therapy
CPT/HCPCS: 72100; 96372; 99283; 99284; J1885

== ENCOUNTER 2024-06-21 09:07 | Outpatient (REF) | payer OTHER, SELFPAY ==
[2024-06-21 18:10] LABS: Appearance Urine Clear; Color Urine Yellow; Glucose Urine UA Negative (Negative); Leukocyte Esterase Urine Trace (Negative); Nitrite Urine Negative (Negative); PH 6.5 (5.0-9.0); Specific Gravity - Urine 1.015 (1.005-1.025); UMIC TRIGGER UA YES; Urine Blood Negative (Negative); Urine Ketones Negative (Negative); Urine Protein 30 (1+) mg/dL (Neg-Trace)
[2024-06-21 18:14] LABS: Bacteria Urine Trace (None Seen); Hyaline Casts Urine 0-2 /LPF (0-2); RBC Urine 0-2 /HPF (0-2); WBC Urine 0-5 /HPF (0-5)
[2024-06-21 18:14] LABS: Anion Gap 10 (12-20); Blood Urea Nitrogen 12 mg/dL (9-16); Calcium 9.5 mg/dL (8.4-10.2); Carbon Dioxide 25 mmol/L (22-29); Chloride 110 mmol/L (96-108); Estimated Glomerular Filt Rate > 60; Glucose Random 106 mg/dL (60-115); Potassium 4.3 mmol/L (3.3-5.1); Sodium 141 mmol/L (135-145)
[2024-06-21 18:28] LABS: Creatinine Urine 103.25 mg/dL; Total Protein Urine Random 25 mg/dL (<12)
== END 2024-06-21 09:08 | disposition home or self-care (01) ==
LOC: HO.HKASLDS 09:07
PROVIDERS: Visit Provider Internal Medicine Hypertension Specialist
DX: I10 Essential (primary) hypertension (principal); N05.9 Unspecified nephritic syndrome with unspecified morphologic changes
CPT/HCPCS: 36415; 80048; 81001; 82570; 84156

== ENCOUNTER 2024-06-22 08:34 | Outpatient (AMB) | payer OTHER, SELFPAY ==
[2024-06-22 08:42] VITALS: BP 140/78; PULSE 87; O2SAT 97; BMI 39.8
--- NOTE | 2024-06-22 08:42 | HO.NEPHOV ---
Vital Signs 06/22/24 08:42 Height 5 ft 4 in Weight 232 lb BMI 39.8 BP 140/78 H Blood Pressure Location Lt brachial Position Sitting Pulse 87 Pulse Source Pulse Oximeter Pulse Oximetry (%) 97 Oxygen Delivery Method Room Air Intake Visit Reasons: Hypertension/ Conf Custom Protection Officer Required: No Accompanied by: Self / Same As Patient Allergies Bactrim Allergy (Unknown, Uncoded 05/02/24 08:25) diarrhea Cyclobenzaprine Allergy (Unknown, Uncoded 05/02/24 08:25) itching Penicillins Allergy (Unknown, Uncoded 05/02/24 08:25) rash Sulfamethoxazole Allergy (Unknown, Uncoded 05/02/24 08:25) nausea and vomiting HPI Comments Details: Middle-aged woman with the history of obesity and hypertension. She continues to struggle with her weight. She was evaluated by the weight management Clinic and she needs further follow-up. She underwent abdominal ultrasonogram showed bilateral hydronephrosis more on the right. She also has renal stones. She is asymptomatic. Currently on HCTZ 12.5 mg QD 06/22/24 c/o Hip pain- on Neurontin uses a walker GAined weight PFSH Surgical History No history of previous surgery Family History Mother Alzheimer disease Father Cancer Son No problems noted. Son No problems noted. Daughter No problems noted. Social History Alcohol intake: never Patient Tobacco Use Status: Never used Tobacco Physical Exam Vital Signs: Last Vital Signs Pulse 87 06/22/24 08:42 BP 140/78 H 06/22/24 08:42 Pulse Ox 97 06/22/24 08:42 Oxygen Delivery Method Room Air 06/22/24 08:42 BMI result Body Mass Index 39.8 Const General: comfortable Nutritional Appearance: well nourished Orientation/consciousness: patient oriented x3 HEENT Head: No normal to inspection Mouth: moist mucous membranes Neck Neck: Yes supple and Yes no JVD Resp Auscultation: clear to auscultation bilaterally, no rales and rub present Cardio Jugular venous distension: no JVD Palpation: no palpable S3 and no palpable S4 Heart sounds: no rubs GI Palpation (GI): Soft to palpation and nontender Percussion: No Fluid wave present General: Yes no CVA tenderness Back/Spine/Pelvis Back: no CVA tenderness Skin General skin exam: no rashes or lesions noted Neuro General: patient oriented x3 Extrem General: Yes no pedal edema and No clubbing Results Reviewed Nephrology Results: Hgb 12.8 g/dl (12.0-16.0) 12/16/23 WBC 6.0 X10*3/uL (4.8-10.8) 12/16/23 Plt Count 180 X10*3/uL (160-400) 12/16/23 Sodium 141 mmol/L (135-145) 06/21/24 Potassium 4.3 mmol/L (3.3-5.1) 06/21/24 Chloride 110 mmol/L (96-108) H 06/21/24 Carbon Dioxide 25 mmol/L (22-29) 06/21/24 BUN 12 mg/dL (9-16) 06/21/24 Creatinine 0.86 mg/dL (0.5-1.4) 06/21/24 Calcium 9.5 mg/dL (8.4-10.2) 06/21/24 Urine Protein 30 (1+) mg/dL (Neg-Trace) H 06/21/24 Urine Creatinine 103.25 mg/dL 06/21/24 Renal US 01/26/24 Assessment & Plan Assessment & Plan (1) HTN (hypertension): Code(s): I10 - Essential (primary) hypertension Category: Medical Plan: Blood pressure acceptable Stay on HCTZ 12.5 mg QD Stay on low-sodium diet She needs weight loss No change in medications (2) Hydronephrosis: Code(s): N13.30 - Unspecified hydronephrosis Category: Medical Plan: Abdominal ultrasonogram in November showed bilateral hydronephrosis. With renal stones and simple cyst Follow-up renal ultrasound did NOT show any hydronephrosis Renal function improved with a creatinine 0.86 (3) Obesity: Code(s): E66.9 - Obesity, unspecified Category: Medical (4) Nephrolithiasis: Code(s): N20.0 - Calculus of kidney Category: Medical Plan: 24 hr urine shows volume of 1325 Oxalate mildly elevated at 40 Needs to stay on low Oxalate diet - Avoid strawberries, nuts, etc; Discussed with Alexandra Increase PO fluid intake to maintain urine output of 2 L Low salt diet Plan Needs follow-up with weight loss clinic Orders: Orders Basic Metabolic Panel 6 Months I10 - Essential (primary) hypertension, N20.0 - Calculus of kidney Coding Level of Care Code Est Pt Level 4 (42068) Diagnoses HTN (hypertension) I10 Hydronephrosis N13.30 Obesity E66.9 Nephrolithiasis N20.0
== END 2024-06-22 09:04 | disposition home or self-care (01) ==
PROVIDERS: PCP Internal Medicine; Visit Provider Internal Medicine Hypertension Specialist
DX: I10 Essential (primary) hypertension (principal); N13.30 Unspecified hydronephrosis; E66.9 Obesity, unspecified; N20.0 Calculus of kidney
CPT/HCPCS: 99214

== ENCOUNTER → 2024-06-22 08:34 | Outpatient (BNVA) | payer OTHER, SELFPAY | PROVIDERS: PCP Internal Medicine; Visit Provider Internal Medicine Hypertension Specialist | DX: I10 Essential (primary) hypertension (principal); N13.30 Unspecified hydronephrosis; N20.0 Calculus of kidney; E66.9 Obesity, unspecified; Z68.39 Body mass index [BMI] 39.0-39.9, adult | CPT/HCPCS: 99212 ==

== ENCOUNTER → 2024-08-31 09:40 | Outpatient (BNVA) | payer OTHER, SELFPAY | PROVIDERS: PCP Internal Medicine; Visit Provider Physician Assistant Surgical ==

== ENCOUNTER 2024-09-05 08:18 | Outpatient (AMB) | payer OTHER, SELFPAY ==
--- NOTE | 2024-09-05 09:11 | A.OFFVIS_ITS ---
VS Expanded 09/05/24 09:21 Height 5 ft 4 in Weight 222 lb 4 oz BMI 38.1 Body Fat % 47.4 Body Fat Mass 105.4 Fat Free Mass 116.8 Visceral Fat Rating 15 Body Water % 37.2 Body Water Mass 82.6 Basal Metabolic Rate/Score 1,643 Intake Visit Reasons: TV Re-Est SWL BMI 38.2 Allergies Bactrim Allergy (Unknown, Uncoded 09/05/24 09:11) diarrhea Cyclobenzaprine Allergy (Unknown, Uncoded 09/05/24 09:11) itching Penicillins Allergy (Unknown, Uncoded 09/05/24 09:11) rash Sulfamethoxazole Allergy (Unknown, Uncoded 09/05/24 09:11) nausea and vomiting Medication List - Last Reconciled 09/05/24 by Emory Padilla MD albuterol sulfate 90 mcg/actuation 2 puffs inhalation Q6H PRN hydrochlorothiazide 12.5 mg PO DAILY lorazepam 0.5 mg PO BID PRN pantoprazole 40 mg PO DAILY zolpidem 5 mg PO BEDTIME PRN HPI HPI TV Re-Est SWL BMI 38.2: Details: Start time: 9.00am, End time: 9.56am ?I spent 51 minutes speaking with the patient on the phone plus an additional 5 minutes reviewing and updating records for a total of 56 minutes HPI Comments Details: Previous weight loss efforts: Keto diet Wakes up: 5am, Sleeps: 11pm Breakfast: occasionally 9am (scrambled eggs with turkey feliciano) Lunch: 12.30pm (tuna fish with keto wrap) Dinner: 7pm (chicken with lettuce and tomatoes) Snacks: 10am (chips, crackers), 3pm (cupcake, grinders), 8pm (grinders) Exercise: none Fluids: Coffee: occasionally, tea: none, soda: none, juice: none, ETOH: none PFSH Medical History (Updated 09/05/24 @ 09:37 by Emory Padilla MD) GERD (gastroesophageal reflux disease) Insomnia Anxiety Asthma BMI 38.0-38.9,adult Obesity Surgical History No history of previous surgery Family History Mother Alzheimer disease Father Cancer Son No problems noted. Son No problems noted. Daughter No problems noted. Social History Alcohol intake: never Patient Tobacco Use Status: Never used Tobacco Telehealth Telehealth Telehealth Platform: Telephone Location of provider rendering services: practice address Location of patient: address on file Patient Identification confirmed using: Name, : Yes Telehealth method: voice only Patient verbally consented to treatment: Yes Patient verbally consented to billing insurance company: Yes Patient informed of any privacy concerns related to visit: Yes Minutes spent on Phone/Video with Pt.: 56 Assessment & Plan Assessment & Plan (1) Obesity: Code(s): E66.9 - Obesity, unspecified Category: Medical Qualifiers: Obesity type: due to excess calories Obesity classification: adult class 2 (BMI 35 - 39.9) Serious obesity comorbidity presence: with serious comorbidity Body mass index: BMI 38.0-38.9 Qualified Code(s): E66.812 - Obesity, class 2; E66.01 - Morbid (severe) obesity due to excess calories; Z68.38 - Body mass index [BMI] 38.0-38.9, adult Plan: 1.? Plan for lap sleeve gastrectomy. If diaphragmatic or ventral hernias are present at time of surgery, these will be repaired laparoscopically as well. Risks and complications include possible conversion to an open procedure, anastomotic leak, bleeding requiring transfusion, small bowel obstruction, , DVT and pulmonary embolism, cardiac, or pulmonary complications, as shelter complications such as anastomotic ulcer, insufficient weight loss and vitamin deficiencies. I emphasized the importance of close follow-up, adherence to instructions and good communication. 2. Nutritional counseling. Start with 2 CELEBRATE REBUILD protein (buy at [facility]) shakes (HALF scoop EACH in 8oz low fat unsweetened almond milk each) at 6am-8am and 9am-11am, 2 protein bars (CELEBRATE protein bars, [facility]) at 12pm-2pm and 3pm-5pm, dinner at 6pm (8 forks of protein and 8 forks of salad/vegetables) AND one more protein bar after dinner at 8pm-10pm. So you do 2 protein shakes, 3 protein bars and one meal per day. Meal to include lean meat (beef, fish, pork, turkey, chicken), or samoan yogurt, or egg whites, or beans with a salad with olive oil and fruits (berries, pears, apples, kiwi). Avoid salt, breads, potatoes, rice, pasta, desserts. 3. Each shake would be drunk slowly, like coffee in a period of 2 hours. 4. Cut each bar in 4 pieces and eat each piece in 30min ?to make each bar last 2 hours. 5. I emphasized the importance of measuring accurately the food portion and measure it when serving the food in plate 6. The meal portions include 8 full-size forks of meat and 8 full-size forks of salad. You always eat the meat portion but you can replace up to 4 forks for salad/vegetables with rice, potatoes or pasta, or a fruit ?if you like. The less you do it the better weight loss will be. 7. One full-size fork is what it can be scooped on the fork without falling aside and not what can be bit with the fork. Use regular forks like those you find in a typical restaurant. 8.? Please buy the body composition scale we discussed and send me weight measurements as soon as possible and then once a week. Always include your diet and exercise plan. 9. The best choice would be to purchase a stationary bike at home that can track calories. Let me know if you do so I can give you an exercise plan. 10. Goal is to lose at least 1.5-2lbs per week 11. Goal to lose 10% of your weight before surgery, which is about 22lbs. Ultimate weight goal: 200lbs before surgery 12. Please follow the diet plan exactly without any change. If you don't like something about the plan or you feel hungry you need to communicate with me so I can help you revise the plan. You should not change the plan yourself. 13. To be scheduled for EGD due to the history of sleeve gastrectomy and anemia. The possibility of biopsies was discussed. Patient needs to avoid use of NSAIDs and aspirin for 1 week prior to EGD. You must be on liquids only the day before your endoscopy. Risks of perforation and bleeding was discussed with the patient. This will be an outpatient procedure with IV sedation. Orders: Orders Insulin Today E66.9 - Obesity, unspecified, I10 - Essential (primary) hypertension, K21.9 - Gastro-esophageal reflux disease without esophagitis, R06.81 - Apnea, not elsewhere classified, Z68.38 - Body mass index [BMI] 38.0- 38.9, adult H Pylori Breath Test Today E66.9 - Obesity, unspecified, I10 - Essential (primary) hypertension, K21.9 - Gastro-esophageal reflux disease without esophagitis, R06.81 - Apnea, not elsewhere classified, Z68.38 - Body mass index [BMI] 38.0-38.9, adult Lipid Panel Today E66.9 - Obesity, unspecified, I10 - Essential (primary) hypertension, K21.9 - Gastro-esophageal reflux disease without esophagitis, R06.81 - Apnea, not elsewhere classified, Z68.38 - Body mass index [BMI] 38.0- 38.9, adult Comprehensive Met. Panel Today E66.9 - Obesity, unspecified, I10 - Essential (primary) hypertension, K21.9 - Gastro-esophageal reflux disease without e sophagitis, R06.81 - Apnea, not elsewhere classified, Z68.38 - Body mass index [BMI] 38.0-38.9, adult Vitamin B12 and Folate Today E66.9 - Obesity, unspecified, I10 - Essential (primary) hypertension, K21.9 - Gastro-esophageal reflux disease without esophagitis, R06.81 - Apnea, not elsewhere classified, Z68.38 - Body mass index [BMI] 38.0-38.9, adult Zinc Today E66.9 - Obesity, unspecified, I10 - Essential (primary) hypertension, K21.9 - Gastro-esophageal reflux disease without esophagitis, R06.81 - Apnea, not elsewhere classified, Z68.38 - Body mass index [BMI] 38.0- 38.9, adult C Reactive Protein Today E66.9 - Obesity, unspecified, I10 - Essential (primary) hypertension, K21.9 - Gastro-esophageal reflux disease without esophagitis, R06.81 - Apnea, not elsewhere classified, Z68.38 - Body mass index [BMI] 38.0-38.9, adult Vitamin B1 Today E66.9 - Obesity, unspecified, I10 - Essential (primary) hypertension, K21.9 - Gastro-esophageal reflux disease without esophagitis, R06.81 - Apnea, not elsewhere classified, Z68.38 - Body mass index [BMI] 38.0- 38.9, adult TSH reflex Free T4 Today E66.9 - Obesity, unspecified, I10 - Essential (primary) hypertension, K21.9 - Gastro-esophageal reflux disease without esophagitis, R06.81 - Apnea, not elsewhere classified, Z68.38 - Body mass index [BMI] 38.0-38.9, adult Ferritin Today E66.9 - Obesity, unspecified, I10 - Essential (primary) hypertension, K21.9 - Gastro-esophageal reflux disease without esophagitis, R06.81 - Apnea, not elsewhere classified, Z68.38 - Body mass index [BMI] 38.0- 38.9, adult US abdomen comp w elastography Today E66.9 - Obesity, unspecified, I10 - Essential (primary) hypertension, K21.9 - Gastro-esophageal reflux disease without esophagitis, R06.81 - Apnea, not elsewhere classified, Z68.38 - Body mass index [BMI] 38.0-38.9, adult XR chest 2V Today E66.9 - Obesity, unspecified, I10 - Essential (primary) hypertension, K21.9 - Gastro-esophageal reflux disease without esophagitis, R06.81 - Apnea, not elsewhere classified, Z68.38 - Body mass index [BMI] 38.0- 38.9, adult Hemoglobin A1c Today E66.9 - Obesity, unspecified, I10 - Essential (primary) hypertension, K21.9 - Gastro-esophageal reflux disease without esophagitis, R06.81 - Apnea, not elsewhere classified, Z68.38 - Body mass index [BMI] 38.0- 38.9, adult Complete Blood Count Auto Diff Today E66.9 - Obesity, unspecified, I10 - Essential (primary) hypertension, K21.9 - Gastro-esophageal reflux disease without esophagitis, R06.81 - Apnea, not elsewhere classified, Z68.38 - Body mass index [BMI] 38.0-38.9, adult IRON PROFILE Today E66.9 - Obesity, unspecified, I10 - Essential (primary) hypertension, K21.9 - Gastro-esophageal reflux disease without esophagitis, R06.81 - Apnea, not elsewhere classified, Z68.38 - Body mass index [BMI] 38.0- 38.9, adult Vitamin A Today E66.9 - Obesity, unspecified, I10 - Essential (primary) hypert ension, K21.9 - Gastro-esophageal reflux disease without esophagitis, R06.81 - Apnea, not elsewhere classified, Z68.38 - Body mass index [BMI] 38.0-38.9, adult Vitamin D 25-OH Total Today E66.9 - Obesity, unspecified, I10 - Essential (primary) hypertension, K21.9 - Gastro-esophageal reflux disease without esophagitis, R06.81 - Apnea, not elsewhere classified, Z68.38 - Body mass index [BMI] 38.0-38.9, adult ECG 12 lead EKG Today E66.9 - Obesity, unspecified, I10 - Essential (primary) hypertension, K21.9 - Gastro-esophageal reflux disease without esophagitis, R06.81 - Apnea, not elsewhere classified, Z68.38 - Body mass index [BMI] 38.0- 38.9, adult FL upper GI w air Today E66.9 - Obesity, unspecified, I10 - Essential (primary) hypertension, K21.9 - Gastro-esophageal reflux disease without esophagitis, R06.81 - Apnea, not elsewhere classified, Z68.38 - Body mass index [BMI] 38.0- 38.9, adult Referrals Behavioral Health Referral E66.9 - Obesity, unspecified, I10 - Essential (primary) hypertension, K21.9 - Gastro-esophageal reflux disease without esophag itis, R06.81 - Apnea, not elsewhere classified, Z68.38 - Body mass index [BMI] 38.0-38.9, adult Nutrition/Dietitian Referral E66.9 - Obesity, unspecified, I10 - Essential ( primary) hypertension, K21.9 - Gastro-esophageal reflux disease without esophagitis, R06.81 - Apnea, not elsewhere classified, Z68.38 - Body mass index [BMI] 38.0-38.9, adult
[2024-09-05 09:21] VITALS: BMI 38.1
== END 2024-09-05 09:57 | disposition home or self-care (01) ==
LOC: HO.HBS 08:18
PROVIDERS: PCP Internal Medicine; Visit Provider Surgery
DX: E66.812 Obesity, class 2 (principal); Z68.38 Body mass index [BMI] 38.0-38.9, adult
CPT/HCPCS: 99443

== ENCOUNTER 2024-09-06 10:37 | Outpatient (REF) | payer OTHER, SELFPAY ==
--- NOTE | ~2024-09-06 | XR_ITS ---
EXAMINATION: XR CHEST CLINICAL INFORMATION: Obesity, unspecified E66.9. COMPARISON: XR Chest 12/16/2019 TECHNIQUE: 2 views of the chest were obtained. Exam submitted for review 10/03/2024 8:25 AM DIRECTOR OF ACCOUNTS PAYABLE. FINDINGS: Cardiac, mediastinal, and hilar contours are normal. Lungs demonstrate linear platelike atelectasis in the medial right lower lobe, but are otherwise clear. No pneumothorax or effusion. There are degenerative spinal changes. No acute bony or soft tissue abnormalities. There has been a prior subacromial decompression in the left shoulder. XR/XR chest 2V IMPRESSION: No active pulmonary disease. Electronically signed by: Jorge Lopez MD 10/03/2024 09:27 AM [facility]
[2024-09-06 10:56] LABS: MANUAL DIFF FLAG NO
--- NOTE | 2024-09-06 10:57 | ECG_ITS ---
Test Reason : e66.01 Blood Pressure : / mmHG Vent. Rate : 077 BPM Atrial Rate : 077 BPM P-R Int : 134 ms QRS Dur : 082 ms QT Int : 384 ms P-R-T Axes : 061 048 042 degrees QTc Int : 434 ms Normal sinus rhythm Normal ECG When compared with ECG of 16-DEC-2023 08:55, No significant change was found Referred By: Emory Padilla Electronically Signed By:ALONDRA GUNDERSON
[2024-09-06 12:06] LABS: Basophils Percent Auto 0.5 % (0-2); Eosinophils Absolute Auto 0.1 X10*3/uL (0.0-0.4); Eosinophils Percent Auto 1.6 % (0-4); Hematocrit 43.2 % (37.0-47.0); Hemoglobin 13.4 g/dl (12.0-16.0); Imm Gran Abs Auto 0.02 X10*3/uL (0.00-0.03); Imm Gran Pct Auto 0.3 % (0.0-0.4); Lymphocytes Absolute Auto 1.9 X10*3/uL (1.2-4.9); Lymphocytes Percent Auto 25.8 % (20-40); Mean Corpuscular Hemoglobin 26.2 pg (27.0-33.0); Mean Corpuscular Volume 84.5 fL (80.0-98.0); Mean Platelet Volume 12.2 fL (9.4-12.3); Monocytes Absolute Auto 0.6 X10*3/uL (0.1-1.2); Monocytes Percent Auto 7.3 % (2-11); Neutrophils Absolute Auto 4.8 x10*3/uL (2.0-8.3); Neutrophils Percent Auto 64.5 % (45-73); Platelet Count 209 X10*3/uL (160-400); Red Blood Count 5.11 X10*6/uL (4.20-5.50); Red Cell Distribution Width 15.6 % (11.0-16.0); White Blood Count 7.5 X10*3/uL (4.8-10.8)
[2024-09-06 12:14] LABS: Estimated Average Glucose 108 mg/dL; Hemoglobin A1C 123.5012 umol/L; Hemoglobin A1c % 5.4 % (<6.0); Total Hemoglobin (HGBA1C) 3437.7406 umol/L
[2024-09-06 12:45] LABS: Alanine Aminotransferase 18 U/L (0-31); Albumin Level 4.1 g/dL (3.5-5.0); Alkaline Phosphatase 118 U/L (39-117); Anion Gap 10 (12-20); Aspartate Amino Transferase 17 U/L (5-31); Bilirubin Total 0.3 mg/dL (0.0-1.0); Blood Urea Nitrogen 19 mg/dL (9-16); Calcium 9.4 mg/dL (8.4-10.2); Carbon Dioxide 25 mmol/L (22-29); Chloride 108 mmol/L (96-108); Cholesterol 184 mg/dL (<200); Estimated Glomerular Filt Rate 57; Glucose Random 92 mg/dL (60-115); HDL Cholesterol 35 mg/dL (>40); Iron 30 mcg/dL (30-160); LDL Cholesterol Calculated 123 mg/dL (<100); Percent Iron Saturation 13 % (15-50); Potassium 4.1 mmol/L (3.3-5.1); Sodium 139 mmol/L (135-145); Total Iron Binding Capacity 225 mcg/dL (228-428); Total Protein 7.9 g/dL (6.5-8.0); Triglycerides 132 mg/dL (<150); Unsaturated Iron Binding 195 ug/dL
[2024-09-06 12:53] LABS: Ferritin 165 ng/mL (10-250); TSH reflex Free T4 2.49 uIU/mL (0.32-4.0); Vitamin D 25-OH Total 27.6 ng/mL (>30)
[2024-09-06 13:02] LABS: Folate 7.5 ng/mL (> or = 4.0); Vitamin B12 420 pg/mL (200-900)
[2024-09-06 13:32] LABS: Insulin 13 uU/mL (2-29)
[2024-09-09 00:34] LABS: Zinc 82 mcg/dL (60-130)
[2024-09-09 17:24] LABS: Vitamin A 53 mcg/dL (38-98)
[2024-09-15 16:18] LABS: Vitamin B1 <6 nmol/L (8-30)
== END 2024-09-06 10:38 | disposition home or self-care (01) ==
LOC: HO.XRAY 10:37
PROVIDERS: PCP Internal Medicine; Visit Provider Surgery
DX: E66.9 Obesity, unspecified (principal); I10 Essential (primary) hypertension; K21.9 Gastro-esophageal reflux disease without esophagitis; R06.81 Apnea, not elsewhere classified; Z68.38 Body mass index [BMI] 38.0-38.9, adult; Z13.1 Encounter for screening for diabetes mellitus
CPT/HCPCS: 36415; 71046; 80053; 80061; 82306; 82607; 82728; 82746; 83036; 83525; 83540; 84425; 84443; 84590; 84630; 85025; 86140; 93005

== ENCOUNTER → 2024-09-06 10:57 | Outpatient (BNV) | payer OTHER, SELFPAY | PROVIDERS: PCP Internal Medicine; Visit Provider Internal Medicine | DX: I10 Essential (primary) hypertension (principal); E66.01 Morbid (severe) obesity due to excess calories; Z68.38 Body mass index [BMI] 38.0-38.9, adult | CPT/HCPCS: 93010 ==

== ENCOUNTER → 2024-09-06 11:10 | Outpatient (BNV) | payer OTHER, SELFPAY | PROVIDERS: PCP Internal Medicine; Visit Provider Radiology Diagnostic Radiology | DX: E66.9 Obesity, unspecified (principal) | CPT/HCPCS: 71046 ==

== ENCOUNTER 2024-09-20 12:32 | Day surgery (SDC) | payer OTHER, SELFPAY ==
[2024-09-16 09:07] VITALS: BMI 38.1
[2024-09-20 13:31] VITALS: BP 139/70; PULSE 65; RESP 14; TEMP 36.9; O2SAT 96; BMI 38.1
[2024-09-20] MEDS: Lactated Ringers 1,000 ML 80 ML IVCONT (14:01)
--- NOTE | 2024-09-20 15:06 | P.CONAN_ITS ---
HPI - Anesthesia Eval Consult details Narrative: 64 yo female patient for EGD PMFSH Active Problems Active Problems: All Active Problems Vitamin B12 deficiency (Acute) Vitamin D deficiency (Acute) Nephrolithiasis (Acute) Hydronephrosis (Acute) GERD with apnea (Acute) Obstructive sleep apnea (Acute). Does not use CPAP machine secondary to claustrophobia Morbid obesity (Acute) HTN (hypertension) (Acute) GERD (gastroesophageal reflux disease) (Acute) Insomnia (Acute) Anxiety (Acute) Asthma (Acute) BMI 38.0-38.9,adult (Acute) Obesity (Acute) Past Medical History Medical History GERD (gastroesophageal reflux disease) Insomnia Anxiety Asthma BMI 38.0-38.9,adult Obesity Family History Family History Mother Alzheimer disease Father Cancer Son No problems noted. Son No problems noted. Daughter No problems noted. Family history of problems with anesthesia: No Surgical History Surgical History (Updated 09/20/24 @ 15:08 by Alem Coronel MD) Hx of lithotripsy Hx of cholecystectomy History of Problems with Anesthesia: No Social History Social History Are you a primary nurse behavioral health care to a significant other at home: No Do you presently have visiting nurse or other home services: No Alcohol intake: never Patient Tobacco Use Status: Never used Tobacco Use of substances other than those prescribed or required for medical reasons: No Have you been hit, kicked, punched, or otherwise hurt by someone within the past year? If so, by whom?: No Advance Directives: No Advance Directives Information Provided: Yes Recently lost weight without trying: No Nutrition Risks: No Nutritional Risk Patient : No Meds Allergies Allergy/AdvReac Type Severity Reaction Status Date / Time cyclobenzaprine Allergy Intermediate Itching Verified 09/20/24 13:27 Penicillins Allergy Intermediate Rash Verified 09/20/24 13:27 Sulfa (Sulfonamide Allergy Intermediate Nausea and Verified 09/20/24 13:27 Antibiotics) Vomiting sulfamethoxazole Allergy Intermediate Diarrhea Verified 09/20/24 13:27 [From Bactrim] trimethoprim [From Bactrim] Allergy Intermediate Diarrhea Verified 09/20/24 13:27 Active Medications: Current Medications Lactated Ringer's (Lr) 1,000 mls @ 80 mls/hr IVCONT .[id number] [place] Last Admin: 09/20/24 14:01 Dose: 80 mls/hr Home Medications ?Medication ?Instructions ?Recorded ?Confirmed ?Last Taken ?Type lorazepam 0.5 mg tablet 0.5 mg PO BID PRN Anxiety 10/02/23 09/20/24 09/20/24 History pantoprazole 40 mg tablet,delayed 40 mg PO DAILY 10/02/23 09/20/24 09/20/24 History release zolpidem 5 mg tablet 5 mg PO BEDTIME PRN Insomnia 01/13/24 09/16/24 Unknown History albuterol sulfate 90 mcg/actuation 2 puff inhalation Q6H PRN 09/05/24 09/16/24 Unknown History aerosol inhaler Shortness Of Breath Or Wheezing Exam Height,Weight and Vital Signs: Height 5 ft 4 in Weight 100.698 kg Last Vital Signs Temp 98.5 F 09/20/24 13:31 Pulse 65 09/20/24 13:31 Resp 14 09/20/24 13:31 BP 139/70 09/20/24 13:31 Pulse Ox 96 09/20/24 13:31 O2 Del Method Room Air 09/20/24 13:31 Airway Mallampati Class: III TM Dist: >3cm Neck ROM: Full Denture: Lower Partial: Upper Loose/Missing/Broken Teeth: Yes (Denies broken or loose teeth) Heart: RRR Lungs: CTAB Assessment and Plan Assessment Anesthesia Assessment: Anesthesia Plan Discussed and Chart Reviewed Final Anesthetic Review Family History of Problems with Anesthesia: No History of Problems with Anesthesia: No NPO: Yes ASA Class: III Final Preanesthetic Review: No Changes in Pt Med Stat, Meds/Allgs Chart Reviewed, Consent Obtained/Reviewed and Anes Risks/Benef Reviewed Patient Risk: Intermediate Procedure Risk: Low Assessment/Block/Sedation in SS: Assess/Block/Sedation-SS Anesthetic Plan Anesthetic Plan: TIVA Disposition: Standard PACU
--- NOTE | 2024-09-20 15:53 | MHC.SHP ---
Pre-Procedural Eval Section A - 24 Hr Update-Section A only Date of Service: 09/20/24 The patient is an INPATIENT: No The patient has been examined within 24 hours of the surgical procedure. The History & Physical has been completed within 30 days and I have reviewed it.: Yes Section B - Complete if H&P > 30 days Chief Complaint: Morbid (severe) obesity due to excess calories Details of Present Illness: GERD Relevant Family History (Specify if Yes): No Relevant Social History: None Present Medications: None Medical History: No relevant PMH History of Previous Operations: No relevant previous surgery Allergies: Allergies Allergy/AdvReac Type Severity Reaction Status Date / Time cyclobenzaprine Allergy Intermediate Itching Verified 09/20/24 13:27 Penicillins Allergy Intermediate Rash Verified 09/20/24 13:27 Sulfa (Sulfonamide Allergy Intermediate Nausea and Verified 09/20/24 13:27 Antibiotics) Vomiting sulfamethoxazole Allergy Intermediate Diarrhea Verified 09/20/24 13:27 [From Bactrim] trimethoprim [From Bactrim] Allergy Intermediate Diarrhea Verified 09/20/24 13:27 Review of Systems Sugical H&P ROS: Negative: Constitution, Cardiovascular, Respiratory, Neurological, Psychiatric, Hem-Onc, Allergic/Immunologic, Gastrointestinal, Genitourinary, Musculoskeletal, Integumentary, Endocrine and Eyes/Ears/Nose/Throat Exam Surgical H&P Exam: Normal: HEENT, Normal: Heart, Normal: Lungs, Normal: Extremities, Normal: Abdomen, Normal: Skin and Normal: Neurological Plan Diagnosis/Plan: Unchanged (EGD to assess etiology of GERD. Risks of bleeding and perforation were discussed with the patient and she is in agreement with the plan.) I have reviewed the history and physical and performed a pertinent physical examination on my patient. No changes have occurred unless specified. Time Spent With Patient Time: Total time managing care of this patient today ____ minutes.
--- NOTE | 2024-09-20 15:56 | P.BOP_ITS ---
Brief Operative Note Date of Service: 09/20/24 Pre-op diagnosis: GERD Post-op diagnosis: same Procedure: PROCEDURE DATE: 09/20/2024 PREOPERATIVE DIAGNOSIS: GERD POSTOPERATIVE DIAGNOSIS: ?Same as above. 1) gastritis PROCEDURE: Ydcliqkl-[id number] with biopsies Surgeon: Chavez Padilla M.D.. Ph.D. Rail Crew Member: None ? Anesthesia: IV sedation Estimated blood loss: ?Minimal FINDINGS AND PROCEDURE: ? OPERATIVE INDICATIONS: ?The patient is a 64 year old female known to me who is interested in bariatric surgery. The patient has GERD. Based on this information I recommended an upper endoscopy to evaluate the patient's symptoms. Risks and complications of the surgery were discussed with the patient in advance particularly the possibility of perforation or bleeding that may require surgical intervention. The patient understood the risks and was in agreement with the plan. ? PROCEDURE: After informed consent was obtained by the patient, the patient was ?transferred to the Operating Room and was placed in the supine position.? After successful induction of IV sedation, a mouth block was inserted and the patient was placed in the left lateral decubitus position. An upper endoscopy was performed next, the oropharynx and esophagus appeared within the normal limits. There was no hiatal hernia. The z-line was smooth. Two biopsies were obtained from the distal esophagus 2-3 cm proximal to the GE junction and two additional biopsies from the GE junction. The stomach was entered and it appeared to be of normal size. There was mild gastritis. There was no stricture or ulcer. A biopsy was obtained from the gastric fundus and the antrum. No significant bleeding was noted from any of the biopsy sites. Retroflexion of the scope confirmed a normal GE junction. The scope was then advanced into the duodenum which appeared to be normal as well. At that point the duodenum ?and the stomach were decompressed and the scope was withdrawn from the patient's mouth. The patient extubated and was transferred in stable condition to the Recovery Room for further care. I was present and performed all steps of the procedure. There were no residents to assist with this case. Hussain Padilla M.D., Ph.D. Surgeon: Emory Padilla MD Anesthesia: MAC Was an Rail Crew Member used for this Procedure?: No Estimated blood loss (mL): 0 IV fluids (mL): 400 Urine output (mL): 0 (No Carmen to record output) Pathology: other (1) antrum x1, 2) fundus x1, 3) GE junction x2, 4) distal esophagus x2) Condition: stable Disposition: PACU
[2024-09-20 16:21] VITALS: BP 140/67; PULSE 86; RESP 16; TEMP 36.9; O2SAT 97
--- NOTE | 2024-09-20 16:31 | HO.ANESPROP2 ---
[facility] Active Problems Active Problems: All Active Problems Vitamin B12 deficiency (Acute) Vitamin D deficiency (Acute) Nephrolithiasis (Acute) Hydronephrosis (Acute) GERD with apnea (Acute) Obstructive sleep apnea (Acute) Morbid obesity (Acute) HTN (hypertension) (Acute) GERD (gastroesophageal reflux disease) (Acute) Insomnia (Acute) Anxiety (Acute) Asthma (Acute) BMI 38.0-38.9,adult (Acute) Obesity (Acute) Past Medical History Medical History GERD (gastroesophageal reflux disease) Insomnia Anxiety Asthma BMI 38.0-38.9,adult Obesity Functional capacity: independent ambulation Patient : No Family History Family History Mother Alzheimer disease Father Cancer Son No problems noted. Son No problems noted. Daughter No problems noted. Family history of problems with anesthesia: No Surgical History Surgical History Hx of lithotripsy Hx of cholecystectomy History of Problems with Anesthesia: No Social History Social History Are you a primary direct support professional caregiver to a significant other at home: No Do you presently have visiting nurse or other home services: No Alcohol intake: never Patient Tobacco Use Status: Never used Tobacco Use of substances other than those prescribed or required for medical reasons: No Have you been hit, kicked, punched, or otherwise hurt by someone within the past year? If so, by whom?: No Advance Directives: No Advance Directives Information Provided: Yes Recently lost weight without trying: No Nutrition Risks: No Nutritional Risk Patient : No Meds Allergies Allergy/AdvReac Type Severity Reaction Status Date / Time cyclobenzaprine Allergy Intermediate Itching Verified 09/20/24 13:27 Penicillins Allergy Intermediate Rash Verified 09/20/24 13:27 Sulfa (Sulfonamide Allergy Intermediate Nausea and Verified 09/20/24 13:27 Antibiotics) Vomiting sulfamethoxazole Allergy Intermediate Diarrhea Verified 09/20/24 13:27 [From Bactrim] trimethoprim [From Bactrim] Allergy Intermediate Diarrhea Verified 09/20/24 13:27 Active Medications: Current Medications Albuterol Sulfate (Albuterol Sulfate (0.083%) 2.5 Mg/3 Ml Vial.Neb) 2.5 mg INHALE ONCE PRN PRN Reason: Shortness of Breath/Wheezing Lactated Ringer's (Lr) 1,000 mls @ 100 mls/hr IVCONT .Q10H [place] Ondansetron HCl (Ondansetron Hcl 4 Mg/2 Ml Vial) 4 mg IVPUSH ONCE PRN PRN Reason: Nausea and Vomiting Stop: 09/20/24 21:15 Home Medications ?Medication ?Instructions ?Recorded ?Confirmed ?Last Taken ?Type lorazepam 0.5 mg tablet 0.5 mg PO BID PRN Anxiety 10/02/23 09/20/24 09/20/24 History pantoprazole 40 mg tablet,delayed 40 mg PO DAILY 10/02/23 09/20/24 09/20/24 History release zolpidem 5 mg tablet 5 mg PO BEDTIME PRN Insomnia 01/13/24 09/16/24 Unknown History albuterol sulfate 90 mcg/actuation 2 puff inhalation Q6H PRN 09/05/24 09/16/24 Unknown History aerosol inhaler Shortness Of Breath Or Wheezing Exam Height,Weight and Vital Signs: Height 5 ft 4 in Weight 100.698 kg Last Vital Signs Temp 98.4 F 09/20/24 16:21 Pulse 86 09/20/24 16:21 Resp 16 09/20/24 16:21 BP 140/67 H 09/20/24 16:21 Pulse Ox 97 09/20/24 16:21 O2 Del Method Room Air 09/20/24 16:21 Airway Mallampati Class: III TM Dist: >3cm Neck ROM: Full Partial: Upper and Lower Heart: RRR Lungs: CTA Assessment and Plan Assessment Anesthesia Assessment: Anesthesia Plan Discussed and Chart Reviewed Final Anesthetic Review Family History of Problems with Anesthesia: No History of Problems with Anesthesia: No NPO: Yes ASA Class: III Final Preanesthetic Review: Meds/Allgs Chart Reviewed, Consent Obtained/Reviewed and Anes Risks/Benef Reviewed Patient Risk: Intermediate Procedure Risk: Low Anesthetic Plan Anesthetic Plan: MAC: Disposition: Standard PACU
--- NOTE | 2024-09-20 16:33 | HO.POSTANES ---
Post Anesthesia Evaluation Post Anesthesia Evaluation Date of Service: 09/20/24 Vital Signs: Vital Signs Temp Pulse Resp BP Pulse Ox O2 Del Method 09/20/24 16:21 98.4 F 86 16 140/67 H 97 Room Air 09/20/24 13:31 98.5 F 65 14 139/70 96 Room Air Anesthesia: Monitored Mental Status: Awake Pain Control: Satisfactory Nausea/Vomiting: None Hydration: Adequate Anesthesia-Related Issues: No Anes. Related Issues
[2024-09-20 16:36] VITALS: BP 129/54; PULSE 68; RESP 20; TEMP 36.8; O2SAT 96
== END 2024-09-20 16:45 | disposition home or self-care (01) ==
PROVIDERS: PCP Internal Medicine; Visit Provider Surgery
PROC: 0DJ08ZZ Inspection of Upper Intestinal Tract, Via Natural or Artificial Opening Endoscopic (ICD-10-PCS; CPT 43235; principal; 2024-09-20 15:10)
DX: K21.9 Gastro-esophageal reflux disease without esophagitis (principal); E66.01 Morbid (severe) obesity due to excess calories; Z68.38 Body mass index [BMI] 38.0-38.9, adult; K29.50 Unspecified chronic gastritis without bleeding; I10 Essential (primary) hypertension; R06.81 Apnea, not elsewhere classified; G47.00 Insomnia, unspecified; J45.909 Unspecified asthma, uncomplicated; Z79.899 Other long term (current) drug therapy; Z88.0 Allergy status to penicillin; Z88.2 Allergy status to sulfonamides; Z90.49 Acquired absence of other specified parts of digestive tract; Z87.442 Personal history of urinary calculi
CPT/HCPCS: 43239; 88305; 88313; 88342; J2003; J2704

== ENCOUNTER → 2024-09-20 12:32 | Outpatient (BNV) | payer OTHER, SELFPAY | PROVIDERS: PCP Internal Medicine; Visit Provider Surgery | DX: K21.9 Gastro-esophageal reflux disease without esophagitis (principal); K29.70 Gastritis, unspecified, without bleeding | CPT/HCPCS: 43239 ==

== ENCOUNTER 2024-09-23 09:17 | Outpatient (REF) | payer OTHER, SELFPAY ==
--- NOTE | ~2024-09-23 | US_ITS ---
EXAMINATION: US COMPLETE ABDOMEN WITH LIVER ELASTOGRAPHY CLINICAL INFORMATION: Obesity, unspecified. COMPARISON: Renal ultrasound 01/26/2024. Abdominal ultrasound with elastography 12/16/2023. TECHNIQUE: Real-time imaging of the abdominal viscera. Noninvasive ultrasound liver fibrosis assessment is performed using Ann ElastPQ point quantification shear wave elastography (pSWE) with a C5-2 MHz transducer. Multiple elastography samples are obtained. Exam submitted for review 10/03/2024 8:14 AM [facility]. FINDINGS: PANCREAS: The visualized pancreatic head and body are normal in appearance. The remainder of the pancreas is obscured from visualization by the overlying bowel gas. ABDOMINAL AORTA: No aortic aneurysm is seen. INFERIOR VENA CAVA: Visualized portions are normal. LIVER: Liver is normal in size. Contour appears normal. There is diffuse increased echogenicity of the parenchyma. There is no suspicious hepatic lesion. The right lobe measures 5.7 cm in length. The left lobe measures 10.1 cm in length. Portal flow is hepatopedal. Shear wave liver elastography median stiffness is 1.67 m/s (reference: normal median stiffness is 1.3 m/s or less). (Previously measured 1.33 m/s). IQR/median stiffness to assess sampling precision is 0.08 (reference: good quality data set is IQR/median stiffness of 0.15 or less). GALLBLADDER: Surgically absent. COMMON BILE DUCT: Normal in caliber measuring 0.4 cm in diameter. RIGHT KIDNEY: No hydronephrosis. No renal calculi or focal parenchymal lesions. The kidney measures 10.5 cm in maximum dimension. There are 2 stable parapelvic cysts in the lower pole measuring up to 1.3 cm. LEFT KIDNEY: No hydronephrosis. No renal calculi or focal parenchymal lesions. The kidney measures 10.8 cm in maximum dimension. There are 2 stable parapelvic cysts in the lower pole measuring up to 1.1 cm. SPLEEN: Unremarkable. The spleen measures 10.1 cm in maximum dimension. FREE FLUID: None seen. US/US abdomen comp w elastography IMPRESSION: 1. Diffusely increased hepatic echogenicity suggesting underlying steatosis and/or hepatocellular disease. No focal suspicious hepatic lesion. 2. Liver elastography: In the absence of other known clinical signs, measurements rule out compensated advanced chronic liver disease. If there are known clinical signs, further testing may be needed for confirmation. Liver stiffness measurement is without significant change from prior exam (change under 10%). 3. Cholecystectomy. No biliary dilatation. 4. Stable parapelvic cysts in both kidneys. REFERENCE: Society of Radiologists in Ultrasound Liver Stiffness Thresholds (2020): LIVER STIFFNESS THRESHOLDS: *Liver Stiffness equal or less than 1.3 m/s: High probability of being normal. *Liver Stiffness less than 1.7 m/s: In the absence of other known clinical signs, rules out compensated advanced chronic liver disease. *Liver Stiffness 1.7-2.1 m/s: Suggestive of compensated advanced chronic liver disease but need further test for confirmation. *Liver Stiffness over 2.1 m/s: Rules in compensated advanced chronic liver disease. *Liver Stiffness over 2.4 m/s: Suggestive of clinically significant portal hypertension. QUALITY OF DATA SET: *IQR/Median value equal or less than 0.15 implies a quality data set. *IQR/Median value over 0.15 implies a poor quality data set. SIGNIFICANT CHANGE FROM PRIOR EXAM: Significant change if liver stiffness measurement is 10% or greater from prior exam. OTHER CONSIDERATIONS: The stage of liver fibrosis may be overestimated in the setting of acute hepatitis, liver inflammation, elevated liver function tests, hepatic vascular congestion, obstructive cholestasis, non-fasting state, and infiltrative diseases such as amyloidosis and lymphoma. In some patients with NAFLD, the liver stiffness thresholds for compensated advanced chronic liver disease may be lower. In causes other than viral hepatitis and NAFLD, liver stiffness thresholds are not well established. Electronically signed by: Jorge Lopez MD 10/03/2024 09:14 AM [facility]
== END 2024-09-23 09:18 | disposition home or self-care (01) ==
LOC: HO.US 09:17
PROVIDERS: PCP Internal Medicine; Visit Provider Surgery
DX: E66.9 Obesity, unspecified (principal); Z68.38 Body mass index [BMI] 38.0-38.9, adult; I10 Essential (primary) hypertension; K21.9 Gastro-esophageal reflux disease without esophagitis; R06.81 Apnea, not elsewhere classified
CPT/HCPCS: 76700; 76981

== ENCOUNTER → 2024-09-23 09:19 | Outpatient (BNV) | payer OTHER, SELFPAY | PROVIDERS: PCP Internal Medicine; Visit Provider Radiology Diagnostic Radiology | DX: K76.89 Other specified diseases of liver (principal) | CPT/HCPCS: 76700 ==

== ENCOUNTER 2024-10-21 09:26 | Outpatient (AMB) | payer OTHER, SELFPAY ==
--- NOTE | 2024-10-21 10:05 | MHC.WMTHER ---
Intake Intake Visit Reasons: OV Intake Allergies cyclobenzaprine Allergy (Intermediate, Verified 09/20/24 13:27) Itching Penicillins Allergy (Intermediate, Verified 09/20/24 13:27) Rash Sulfa (Sulfonamide Antibiotics) Allergy (Intermediate, Verified 09/20/24 13:27) Nausea and Vomiting sulfamethoxazole [From Bactrim] Allergy (Intermediate, Verified 09/20/24 13:27) Diarrhea trimethoprim [From Bactrim] Allergy (Intermediate, Verified 09/20/24 13:27) Diarrhea [facility] Medical History (Updated 10/06/24 @ 19:05 by Emory Padilla MD) GERD (gastroesophageal reflux disease) Insomnia Anxiety Asthma BMI 38.0-38.9,adult Obesity Surgical History (Updated 10/28/24 @ 15:35 by Rashi Calloway RN) History of spinal surgery Hx of lithotripsy Hx of cholecystectomy Family History Mother Alzheimer disease Father Cancer Son No problems noted. Son No problems noted. Daughter No problems noted. Social History Are you a primary manager respiratory care to a significant other at home: No Do you presently have visiting nurse or other home services: No Alcohol intake: never Patient Tobacco Use Status: Never used Tobacco Behavioral Health Assessment Weight Management Therapy Therapy Notes Details PT is a 64 years old Female, who presents for initial visit to [facility] assessment as part of surgical weight loss program. Presenting Concerns Referral Source P-Provider. Reason for referral Completion of behavioral health assessment as part of process for weight-loss surgery. Precipitating Event Obesity and back issues. Living Situation Current Living Situation Rent At risk of losing current housing? No Satisfied with current living situation? Yes Comments PT live alone. Social History Family history and relationship PT 3 years ago. currently single. She has 3 adult children. and 4 grandchildren. PT has 3 sisters, they're very close. Both parents are . Parental/Familial roll form operator obligations None. Developmental history and status None and currently WNL. Social support Children and sisters. Community support PT has a therapist and a psychiatrist. Hoahaoism/Spirituality Spiritism, goes to cheondoism 2 times at week. Cultural/Ethnic information , Parents from [place], she was born in the [place], [place]. Pt is bilingual. Legal Involvement and History Current or historical involvement with the legal system? None reported Education Highest grade completed 11th grade Preferred learning style Visual Currently enrolled in educational program? No Interested in further educational program? 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 Employment Employment Status Retired (6 years ago due to medical reasons.) Wants help to find employment? No Meaningful activities Read, listen to music, walks, epi-related activities, window shopping. Financial Situation Describe current financial situation Comfortable Financial assistance? Food Prentice and Disability Service Service? No Mental Health and Addiction Treatment Current/Past substance abuse? No Comments Alcohol: none Cigarettes/Tobacco: none Cannabis/Edibles: none/ Current/Past addictive behavior concerns? No Psychiatric history Pt attends treatment for over 3 years at [facility], she Sees Dr. Katarzyna Rowell for counseling and Dr. Wheeler for medication management. She has biweekly counseling visits via telehealth, and psych visits every 3 months. PT gest prescribed: Lorazepam 0.5mg 2 x day. For anxiety, she takes it daily. Zolpiden 5mg, 1 at bedtime for sleep. Only as needed, takes it about 2 times at week. PT reports she has been diagnosed with bipolar Dx, Anxiety and depression. She has a history of depression with auditory hallucinations, hearing voices telling her to tell her to self-harm. She hasn't had an episode like this several months ago. In the past she has experiences depressive episodes that last about 7 days, during these days is when she has SI. PT has a history of panic attacks. These Sx can be random and out of the blue , PT experiences anxiety sx daily, PT believes it's triggered by pain. PT reports she received MH support at [facility] due to active anxiety in 2019, left but was going to be admitted. Denies crisis calls or abbi for higher level of care in the last year. PT also denies done any other form of MH treatment in the past. Assessment & Plan Assessment & Plan (1) Anxiety: Code(s): F41.9 - Anxiety disorder, unspecified (2) Depression, unspecified: Code(s): F32.A - Depression, unspecified Plan PT is not cleared yet. She will return on 11/03 to continue assessment. In the meantime she signed an new DANNA for current BH provider, and she agreed to bring the required documents to them to complete BH from to support her clearance. Coding Level of Care Code New Pt Psy Diag Heath (03574) Patient Type New Diagnoses Anxiety F41.9 Depression, unspecified F32.A Time Spent (min) 60
== END 2024-10-21 11:17 | disposition home or self-care (01) ==
PROVIDERS: PCP Internal Medicine; Visit Provider Counselor Mental Health
DX: F41.9 Anxiety disorder, unspecified (principal); F32.A Depression, unspecified
CPT/HCPCS: 90791

== ENCOUNTER 2024-11-22 09:31 | Outpatient (REF) | payer OTHER, SELFPAY ==
--- NOTE | ~2024-11-22 | FL_ITS ---
EXAMINATION: XR FLUOROSCOPY UPPER GI WITH AIR CLINICAL INFORMATION: Preoperative evaluation prior to bariatric surgery COMPARISON: None TECHNIQUE: Fluoroscopic air contrast upper GI examination was performed utilizing standard techniques with thin and thick barium and effervescent granules. Numerous spot images were obtained. FINDINGS: Dual and single contrast images of the esophagus demonstrate normal caliber, contour, and mucosal pattern. No evidence of stricture, mass, or ulcerations identified. Esophageal peristalsis is mildly disorganized. No evidence of hiatus hernia identified. Significant gastroesophageal reflux is seen up to the thoracic inlet. Dual contrast and single contrast images of the stomach demonstrated normal contour and mucosal pattern without evidence of mass, ulceration, or other abnormality. Contrast freely passed into the gastric antrum and duodenal bulb without delay. Single and air-contrast images of the duodenal bulb demonstrate no abnormality. The duodenal sweep has a normal appearance, course, and mucosal fold appearance. The imaged proximal jejunum has a normal fold pattern and caliber. FLUOROSCOPY TIME: 2 minutes 51 seconds Number of Spot Images: 9 Number of Cine: 13 DOSE AREA PRODUCT: 2464 uGy-m2 (microgray-meter squared) FL/FL upper GI w air IMPRESSION: 1. Mild esophageal dysmotility. 2. Significant gastroesophageal reflux. This procedure was performed by Adam Moore PA-C, and supervised by Dr. Lopez Electronically signed by: Jorge Lopez MD 11/28/2024 04:56 PM EDT
--- OUTSIDE RECORDS SUMMARY | 2024-11-22 10:39 | XMS_ITS | Encounter Summary ---
Author Organization [facility] Address [address] [place] [address] Phone Care Team Providers Care Neurology Nurse Name Role Phone Haven Adorno MD Primary Care Provider [phone] Encounter Details Date Type Department Care Team (Late st Contact Info) Description 07/16/2022 Documentation Only [facility] [address] [place] [address] Keturah Mccracken Social History Tobacco Use Types Packs/Day Years Used Date Smoking Tobacco: Former Cigarettes Smokeless Tobacco: Never Alcohol Use Standard Drinks/Week Comments Never 0 (1 standard drink = 0.6 oz pur e alcohol) Comments Unknown Sex and Gender Information Value Date Recorded Sex Assigned at Not on file Legal Sex Female 3:15 PM EDT Gender Identity Not on file Sexual Orientation Not on file documented as of this encounter Plan of Treatment Not on file documented as of this encounter Visit Diagnoses Not on filedocumented in this encounter Care Teams Neurology Nurse Relationship Specialty Start Date End Date Haven Adorno MD [address] [place], [place] PCP - General Internal Medicine 06/25/22 documented as of this encounter
--- OUTSIDE RECORDS SUMMARY | 2024-11-22 10:39 | XMS_ITS | Clinical Summary ---
Author Organization [facility] Address [address] [place] [id number] Care Team Providers Care Sales Donor Recruitment Representative Name Role Phone Devang iWllis MD Primary Care Provider [phone]- [phone] Medical History Medical History Date Comments Asthma DX:Asthma Depression DX:Depression Social History Tobacco Use Types Packs/Day Years Used Date Smoking Tobacco: Never Alcohol Use Standard Drinks/Week Comments No 0 (1 standard drink = 0.6 oz pur e alcohol) Comments Unknown Sex and Gender Information Value Date Recorded Sex Assigned at Not on file Legal Sex Female 12:43 PM EST Gender Identity Not on file Sexual Orientation Not on file Obstetrics History Plan of Treatment Health Maintenance Due Date Last Done Comments DTaP,Tdap,and Td Vaccines (1 - Tdap) 1977 Pneumococcal Vaccine: 50+ Years (1 of 1 - PCV) 2008 Zoster Vaccines (1 of 2) 2008 Colorectal Cancer Screening: Colonoscopy 09/03/2022 Depression Screening 09/03/2022 Hepatitis C Screening 09/03/2022 Osteoporosis Screening (Bone Density Screening) 09/03/2022 Social Influencers of Health Screening 09/03/2022 Falls Risk Assessment 2023 COVID-19 Vaccine (1 - 2023-2 5 season) 2024 Influenza Vaccine (#1) 2024 Breast Cancer Screening 05/28/2025 05/28/20, 10/15/2021, 07/20/2019 RSV Immunization Patients 60 + Years Old (1 - 1-dose 75+ series) 2033 HIB Vaccines Aged Out No longer eligi ble based on patient's age to complete this topic HPV Vaccines Aged Out No longer eligi ble based on patient's age to complete this topic Hepatitis A Vaccines Aged Out No long er eligible based on patient's age to complete this topic Hepatitis B Vaccines Aged Out No long er eligible based on patient's age to complete this topic IPV Vaccines Aged Out No longer eligi ble based on patient's age to complete this topic MMR Vaccines Aged Out No longer eligi ble based on patient's age to complete this topic Meningococcal ACWY Vaccine Aged Out N o longer eligible based on patient's age to complete this topic Meningococcal B Vacine Aged Out No lo nger eligible based on patient's age to complete this topic RSV Immunization Patients Under 20 months Aged Out No longer eligible b ased on patient's age to complete this topic Varicella Vaccines Aged Out No longer eligible based on patient's age to complete this topic Procedures Procedure Name Priority Date/Time Associated Diagnosis Comments [facility] SCREENING DIGITAL Routine 05/28/2023 9:17 AM EDT Encounter for screening mammogram for malignant neoplasm of breast from Last 3 Months or Most Recently Relevant to Health Maintenance Results * [facility] SCREENING DIGITAL (05/28/2023 9:17 AM EDT) Anatomical Region Laterality Modality Mammography 05/28/2023 8:01 AM EDT Narrative 05/28/2023 9:17 AM EDT [facility] Diagnostic Imaging Department [address] [place], [place] [id number] Patient: ??MICHAEL DAVENPORT ?/Age/Sex: 1960 - 63 - F Unit#: ??[id number] ? Location/Status: ??SPDIMAM/REG CLI ? Mnemonic/Ordering Site: ??DIGSC/SPMAM Ordering Physician: ??DEVANG WILLIS MD [facility] Screening Digital - 05/28/23 - 830 Report Status:Signed EXAM: [facility] Screening Digital EXAM DATE AND TIME: 05/28/2023 8:32 AM HISTORY: ??Annual screening COMPARISON: ??10/15/2021, 07/20/2019, 08/14/2017 TECHNIQUE: Bilateral digital breast tomosynthesis was performed in the CC and MLO projections. Computer aided detection with OpenZine 3D 3.1 was employed. TISSUE DENSITY: a. The breasts are almost entirely fatty. FINDINGS: No suspicious masses, grouped microcalcifications, or areas of architectural distortion are seen. The skin and vascularity are unremarkable. IMPRESSION: Stable mammographic appearance of the breasts. ??No evidence of malignancy is seen. A negative mammogram in the presence of a clinically suspicious palpable abnormality does not preclude the possibility of malignancy or alter the indications for biopsy. BI-RADS: ??Category 1: Negative RECOMMENDATION(S): 1: Routine screening mammogram BILATERAL in 1 year. 3341F, 7025F Dictating Physician: ??EMILIANA DOMINIQUE MD Electronically Signed by: ??EMILIANA DOMINIQUE MD Dic Date/Time: ??05/28/23914 Sign date/Time: ??05/28/23 0917 Procedure Note Emiliana Dominique - 10/27/2023 [facility] Diagnostic Imaging Department [address] [place] [id number] Patient: MICHAEL DAVENPORT./Age/Sex: 1960 - 63 - F Unit#: [id number] Location/Status: [facility] CLI Mnemonic/Ordering Site: [facility] Ordering Physician: DEVANG WILLIS MD [facility] Screening Digital - 05/28/23 - 830 Report Status:Signed EXAM: [facility] Screening Digital EXAM DATE AND TIME: 05/28/2023 8:32 AM HISTORY: Annual screening COMPARISON: 10/15/2021, 07/20/2019, 08/14/2017 TECHNIQUE: Bilateral digital breast tomosynthesis was performed in the CCand MLO projections. Computer aided detection with OpenZine 3D 3.1was employed. TISSUE DENSITY: a. The breasts are almost entirely fatty. FINDINGS: No suspicious masses, grouped microcalcifications, or areas ofarchitectural distortion are seen. The skin and vascularity are unremarkable. IMPRESSION: Stable mammographic appearance of the breasts. No evidence of malignancyis seen. A negative mammogram in the presence of a clinically suspicious palpable abnormality does not preclude the possibility of malignancy or alter the indications for biopsy. BI-RADS: Category 1: Negative RECOMMENDATION(S): 1: Routine screening mammogram BILATERAL in 1 year. 3341F, 7025F Dictating Physician: EMILIANA DOMINIQUE MD Electronically Signed by: EMILIANA DOMINIQUE MD Dic Date/Time: 05/28/23914 Sign date/Time: 05/28/23916 us Devang Willis MD IMG BI PROCEDURES Final Re sult from Last 3 Months or Most Recently Relevant to Health Maintenance Care Teams Sales Donor Recruitment Representative Relationship Specialty Start Date End Date Devang Willis MD [address] [place] [id number] PCP - General Internal Medicine 06/23/19
--- OUTSIDE RECORDS SUMMARY | 2024-11-22 10:39 | XMS_ITS | Clinical Summary ---
Author Organization [facility] Facility Address [address] [address] Care Team Providers Care Supervisor Chlorine Liquefaction Name Role Phone Haven Adorno MD Primary Care Provider [phone] Allergies Active Allergy Reactions Criticality Noted Date Comments Codeine Nausea 07/15/2022 Cyclobenzaprine Other (see comments) 01/16/2010 Oxycodone-Acetaminophen Nausea 07/15/2022 Penicillins Rash,Other (see comments) Low 01/16/2010 Sulfamethoxazole-Trimetho prim Nausea 12/17/2010 Tramadol Nausea 01/19/2013 Other reaction(s): Nausea Medications buPROPion XL (WELLBUTRIN XL) 150 MG 24 hr tablet Take 150 mg by mouth 1 (one) time each day 2 Active ipratropium-al buterol (DUO-NEB) 0.5-2.5 mg/3 mL nebulizer solution Inhale 3 mL 1 (one) time each day if needed 2 Active LORazepam (ATIVAN) 0.5 MG tablet Take 0.5 mg by mouth in the morning and 0.5 mg in the evening. 9 Active pantoprazole (PROTONIX) 40 MG EC tablet Take 40 mg by mouth in the morning and 40 mg in the evening. 2 Active zolpidem (AMBIEN) 5 MG tablet Take 5 mg by mouth at night if needed 9 Active Multiple Vitamins-[place] als (MULTIVITAMIN ADULT EXTRA C PO) Take 1 capsule by mouth 0 Active calcipotriene (DOVONOX) 0.005 % cream APPLY TWICE DAILY IN COMBINATION WITH BETAMETHASONE TWO WEEKS ON / ONE WEEK OFF TO LEGS AND ARMS 2 Active albuterol HFA (PROVENTIL HFA;VENTOLIN HFA) 108 (90 Base) MCG/ACT inhaler Inhale 2 puffs every 6 (six) hours if needed for wheezing Active hydroCHLOROthi azide 12.5 MG tablet Take 1 tablet (12.5 mg total) by mouth 1 (one) time each day 30 tablet 11 3 Active Dulera 200-5 MCG/ACT inhaler INHALE 2 PUFFS 2 TIMES A DAY, RINSE MOUTH AND THROAT AFTER USE 3 Active Active Problems Problem Noted Date Diagnosed Date Headache 05/20/2023 05/20/2023 Productive cough 05/20/2023 05/20/2023 Dyspnea 07/14/2022 Gastroesophageal reflux disease 07/14/2022 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 Hypoventilation 07/14/2022 Osteopenia 07/14/2022 Periodic limb movement disorder 07/14/2022 Anxiety 07/14/2022 Immunizations Name Administration Dates Next Due Pfizer SARS-COV-2 02/05/2021,01/15/2021 Tdap 04/12/2022 Family History Medical History Relation Comments Cancer Father Relation Status Comments Father Social History Tobacco Use Types Packs/Day Years Used Date Smoking Tobacco: Former Cigarettes Smokeless Tobacco: Never Tobacco Cessation:Counseling Given: Not Answered Alcohol Use Standard Drinks/Week Comments Never 0 (1 standard drink = 0.6 oz pur e alcohol) Comments Unknown Sex and Gender Information Value Date Recorded Sex Assigned at Not on file Legal Sex Female 3:15 PM EDT Gender Identity Not on file Sexual Orientation Not on file Last Filed Vital Signs Vital Sign Reading Time Taken Comments Blood Pressure 122/70 05/20/2023 1:50 PM EDT Pulse 60 05/20/2023 1:50 PM EDT Temperature - - Respiratory Rate - - Oxygen Saturation 98% 07/15/2022 9:28 AM EDT Inhaled Oxygen Concentration - - Weight 105 kg (231 lb 3.2 oz) 05/20/2023 1:50 PM EDT Height - - Body Mass Index - - Plan of Treatment Health Maintenance Due Date Last Done Comments Breast Cancer Screening 1960 Pneumococcal Vaccine: 65+ Ye ars (1 of 2 - PCV) 1964 Colorectal Cancer Screening: Annual FOBT 2007 Colorectal Cancer Screening: Colonoscopy 2007 Colorectal Cancer Screening: Sigmoidoscopy 2007 Influenza Vaccine (#1) 2024 Hepatitis B Vaccine Aged Out No longe r eligible based on patient's age to complete this topic Insurance ONE CARE DUAL SNP ([id number]) [place] [id number] ONE CARE DUAL SNP ([id number]) Care Teams Supervisor Chlorine Liquefaction Relationship Specialty Start Date End Date Haven Adorno MD [address], [place] PCP - General Internal Medicine 06/25/22
== END 2024-11-22 09:32 | disposition home or self-care (01) ==
LOC: HO.XRAY 09:31
PROVIDERS: PCP Internal Medicine; Visit Provider Surgery
DX: E66.9 Obesity, unspecified (principal); Z68.38 Body mass index [BMI] 38.0-38.9, adult; I10 Essential (primary) hypertension; K21.9 Gastro-esophageal reflux disease without esophagitis; R06.81 Apnea, not elsewhere classified
CPT/HCPCS: 74246

== ENCOUNTER → 2024-11-22 09:33 | Outpatient (BNV) | payer OTHER, SELFPAY | PROVIDERS: PCP Internal Medicine; Visit Provider Physician Assistant Surgical | DX: K21.9 Gastro-esophageal reflux disease without esophagitis (principal); E66.9 Obesity, unspecified; Z01.818 Encounter for other preprocedural examination | CPT/HCPCS: 74246 ==

== ENCOUNTER 2024-11-24 11:17 | Outpatient (AMB) | payer OTHER, SELFPAY ==
--- NOTE | 2024-11-24 11:15 | A.OFFWM_ITS ---
Intake Intake Visit Reasons: TV BH F/U Allergies cyclobenzaprine Allergy (Intermediate, Verified 09/20/24 13:27) Itching Penicillins Allergy (Intermediate, Verified 09/20/24 13:27) Rash Sulfa (Sulfonamide Antibiotics) Allergy (Intermediate, Verified 09/20/24 13:27) Nausea and Vomiting sulfamethoxazole [From Bactrim] Allergy (Intermediate, Verified 09/20/24 13:27) Diarrhea trimethoprim [From Bactrim] Allergy (Intermediate, Verified 09/20/24 13:27) Diarrhea [facility] Medical History (Updated 10/06/24 @ 19:05 by Emory Padilla MD) GERD (gastroesophageal reflux disease) Insomnia Anxiety Asthma BMI 38.0-38.9,adult Obesity Surgical History (Updated 10/28/24 @ 15:35 by Rashi Calloway RN) History of spinal surgery Hx of lithotripsy Hx of cholecystectomy Family History Mother Alzheimer disease Father Cancer Son No problems noted. Son No problems noted. Daughter No problems noted. Social History Are you a primary healthcare administration internship to a significant other at home: No Do you presently have visiting nurse or other home services: No Alcohol intake: never Patient Tobacco Use Status: Never used Tobacco Behavioral Health Assessment Weight Management Therapy Therapy Notes Details The patient is a 64-year-old female presenting for her second visit to complete her behavioral health (BH) assessment as part of the surgical weight-loss program. She reports that her interest in weight-loss surgery is motivated by a desire to improve her physical health and overall quality of life. The patient disclosed a history of mental health concerns but denies any crisis calls or need for a higher level of care over the past year. Her current therapist, Dr. Katarzyna Rowell, noted on the behavioral health form that the patient began therapy in September 2020 and is currently attending counseling twice a week with consistent participation. Dr. Rowell reports no safety concerns and confirms there is no history of substance use. The focus of treatment has been on addressing trauma-related symptoms, and Dr. Rowell has no concerns that would prevent the patient from proceeding with surgery. The patient's initial Binge Eating Scale showed elevated scores, though these were primarily related to unhealthy eating habits rather than binge eating disorder. Current PHQ-9 scores indicate no active symptoms or concerns related to depression. The mental status examination is within normal limits, suggesting that the patient?s functioning is not impaired. The patient has achieved her initial weight-loss goal prior to surgery and has demonstrated consistent adherence to program expectations and guidelines. She also has a solid support system in place and appears to be a suitable candidate for bariatric surgery. At this time, the patient is cleared from a behavioral health standpoint. Presenting Concerns Referral Source [facility] Provider, Dr York. He had initial visit on 09/05/2024. Reason for referral Completion of behavioral health assessment as part of process for weight-loss surgery. Precipitating Event Obesity. Living Situation Current Living Situation Rent At risk of losing current housing? No Satisfied with current living situation? Yes Comments Pt lives alone. Food/Weight/Diet Expectations of change Initial Goal to lose 10% of your weight before surgery, which is about 22lbs. Ultimate weight goal: 200lbs before surgery. Pt started the program on 09/05/2024 at 222Lbs, and the most recent weight as of 11/22/2024 was 198Lbs. . Current meal plan: 2 protein shakes, 3 protein bars and one meal per day. Current exercise plan: Walking. History/Relationship with food PT reports in the past she had no control over her food, some days she would skip breakfast and lunch and would only have 1 big meal and would be snacking during the day, and other days she would have all her meals but mostly carbs and/or quick and not as healthy options. On the other hand, now she has her son as a DESKTOP SUPPORT MANAGER, and this has been helping her with her meal prepping and planning. PT reports in the past she would eat more when depressed and at times would use food to cope or when bored. She was not used to small portions. History/Relationship with weight PT reports a healthy weight in childhood. Was around 150Lbs as a teen. She started gaining weight when she became a mom after her pregnancies. With her 3rd she gained a lot of weight. In the last 10 years, the patient's Lowest weight was 230Lbs, and the highest 250Lbs during COVID. Currently she is at 198Lbs after being in the program for 3 months. History/Relationship with dieting Self-diets. Social History Family history and relationship PT 3 years ago. currently single. She has 3 adult children. and 4 grandchildren. PT has 3 sisters, they're very close. Both parents are . Parental/Familial body technician obligations None. Developmental history and status None and currently WNL. Social support Children and sisters. Community support PT has a therapist and a psychiatrist. Temple/Spirituality Bahai, goes to zoroastrianism 2 times at week. Cultural/Ethnic information , Parents from [place], she was born in the [place], [place]. Pt is bilingual. Legal Involvement and History Current or historical involvement with the legal system? None reported Education Highest grade completed 11th grade Preferred learning style Visual Currently enrolled in educational program? No Interested in further educational program? 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 Employment Employment Status Retired (6 years ago due to medical reasons.) Wants help to find employment? No Meaningful activities Read, listen to music, walks, epi-related activities, window shopping. Financial Situation Describe current financial situation Comfortable Financial assistance? Food [place] and Disability Service Service? No Mental Health and Addiction Treatment Current/Past substance abuse? No Comments Alcohol: none Cigarettes/Tobacco: none Cannabis/Edibles: none/ Current/Past addictive behavior concerns? No Psychiatric history The patient has been attending behavioral health treatment at [facility] for over three years. She sees Dr. Katarzyna Rowell for counseling and Dr. Wheeler for medication management. The patient has biweekly counseling sessions via telehealth and psychiatric visits every three months. The patient is prescribed the following medications: Lorazepam 0.5mg: Taken twice daily for anxiety, used regularly. Zolpidem 5mg: Taken at bedtime for sleep, only as needed, approximately twice a week. The patient reports being diagnosed with Trauma, Bipolar Dx in the past, anxiety, and depression. She has a history of depression accompanied by auditory hallucinations, where she hears voices urging her to self-harm. However, she has not experienced this type of episode for several months. In the past, her depressive episodes have lasted about seven days, during which she has experienced suicidal ideation. The patient also has a history of panic attacks, which she describes as occurring randomly and out of the blue. She experiences daily anxiety symptoms, which she believes are triggered by pain. The patient reports receiving mental health support at [facility] for active anxiety in 2019. She left the facility voluntarily but was close to being admitted at the time. She denies any crisis calls or need for a higher level of care over the past year. Additionally, the patient denies any other forms of mental health treatment in the past. Medical and Physical Health Summary Additional Medical History not covered in history None aditional Sexual History concerns None Physical exam in the last year? Yes Pain Screening Current pain? Yes Pain in the last few months? Yes Medications Is the patient compliant with medications? Yes Does the patient have Root Guardian in place? Not applicable Does the patient use complimentary health approaches? No Trauma/Abuse History History of trauma? No Questionnaires PHQ-9 Over the last 2 weeks, how often have you been bothered by any of the following problems? 1. Little interest or pleasure in doing things: several days 2. Feeling down, depressed, or hopeless: several days 3. Trouble falling or staying asleep, or sleeping too much: not at all 4. Feeling tired or having little energy: several days 5. Poor appetite or overeating: not at all 6. Feeling bad about yourself - or that you are a failure or have let yourself or your family down: not at all 7. Trouble concentrating on things, such as reading the newspaper or watching television: not at all 8. Moving or speaking so slowly that other people could have noticed. Or the opposite - being so fidgety or restless that you have been moving around a lot more than usual: not at all 9. Thoughts that you would be better off or of hurting yourself in some way: not at all Total score: 3 Depression Screening Interpretation: Negative Depression Screening Done: Yes 34735 - PHQ-9 Billing: Yes Source: Developed by Drs. Leandro Mendenhall, Danna Ellis, Xander Soto and colleagues, with an educational abhishek from [employer]. Binge Eating Scale Group 1 A. I don't feel self-conscious about my wt. or body size when I'm with others. B. I feel concerned about how I look to others, but it normally does not make me fell disappointed with myself C. I do get self-conscious about my appearance and wt. which makes me feel disappointed in myself. D. I feel very self-conscious about my wt. and frequently I feel intense shame and disgust for myself. I try to avoid social contacts because of my self- consciousness. Response Group 1: D Group 2 A. I don't have any difficulty eating slowly in the proper manner. B. Although I seem to gobble down foods, I don't end up feeling stuffed because of eating to much. C. At times, I tend to eat quickly and then, I feel uncomfortably full afterwards. D. I have the habit of bolting down my food, without really chewing it. When this happens I usually feel uncomfortably stuffed because I've eaten to much. Response Group 2: D Group 3 A. I feel capable to control my eating urges when I want to. B. I feel like I have failed to control my eating more than the average person. C. I feel utterly helpless when it comes to feeling in control of my eating urges. D. Because I feel so helpless about controlling my eating I have become very desperate about trying to get control. Response Group 3: D Group 4 A. I don't have the habit of eating when I'm bored. B. I sometimes eat when I'm bored, but often I'm able to get busy and get my mind off food. C. I have a regular habit of eating when I'm bored, but occasionally, I can use some other activity to get my mind off eating. D. I have a strong habit of eating when I'm bored. Nothing seems to help me breath the habit. Response Group 4: D Group 5 A. I'm usually physically hungry when I eat something. B. Occasionally, I eat something on impulse even though I really am not hungry. C. I have the regular habit of eating foods, that I might not really enjoy, to satisfy a hungry feeling even though physically, I don't need the food. D. Although I'm not physically hungry, I get a hungry feeling in my mouth that only seems to be satisfied when I eat a food, like sandwich, that fills my mouth. Sometimes, when I eat the food to satisfy my mouth hunger, I then spit the food out so I won't gain weight. Response Group 5: C Group 6 A. I don't feel any guilt or self-hate after I overeat. B. After I overeat, occasionally I feel guilt or self-hate. C. Almost all the time I experience strong guilt or self-hate after I overeat. Response Group 6: C Group 7 A. I don't lose total control of my eating when dieting even after periods when I overeat. B. Sometimes when I eat a forbidden food on a diet, I feel like I blew it and eat even more. C. Frequently, I have the habit of saying to myself, I've blown it now, why not go all the way, when I overeat on a diet. When that happens I eat more. D. I have a regular habit of starting a strict diets for myself but I break the diets by going on an eating binge. My life seems to be either a feast or famine. Response Group 7: D Group 8 A. I rarely eat so much food that I feel uncomfortably stuffed afterwards. B. Usually about once a month, I each such a quantity of food, I end up feeling very stuffed. C. I have regular periods during the month when I eat large amounts of food, either at mealtime or at snacks. D. I eat so much food that I regularly feel quite uncomfortable after eating and sometimes a bit nauseous. Response Group 8: C Group 9 A. My level of calorie intake does not go up very high or go down very low on a regular basis. B. Sometimes after I overeat, I will try to reduce my caloric intake to almost nothing to compensate for the excess calories I've eaten. C. I have a regular habit of overeating during the night. It seems that my routine is not to be hungry in the morning but overeat in the evening. D. In my adult years, I have had week-long periods where I practically starve myself. This follows periods when I overeat. It seems I live a life of either feast or famine. Response Group 9: C Group 10 A. I usually am able to stop eating when I want to. I know when enough is enough. B. Every so often, I experience a compulsion to eat which I can't seem to control. C. Frequently, I experience strong urges to eat which I seem unable to control, but at other times I can control my eating urges. D. I feel incapable of controlling urges to eat. I have a fear of not being able to stop eating voluntarily. Response Group 10: C Group 11 A. I don't have any problem stopping eating when I feel full. B. I usually can stop eating when I feel full but occasionally overeat leaving me feeling uncomfortably stuffed. C. I have a problem stopping eating once I start and usually I feel uncomfortably stuffed after I eat a meal. D. Because I have a problem not being able to stop eating when I want, I sometimes have to induce vomiting to relieve my stuffed feeling. Response Group 11: B Group 12 A. I seem to eat just as much when I'm with others, Family social gatherings as when I'm by myself. B. Sometimes, when I'm with other persons, I don't eat as much as I want to eat because I'm self-conscious about my eating. C. Frequently, I eat only a small amount of food when others are present, because I'm very embarrassed about my eating. D. I feel so ashamed about overeating that I pick times to overeat when I know no one will see me. I feel like a closet eater. Response Group 12: D Group 13 A. I eat three meals a day with only an occasional between meal snack. B. I eat 3 meals a day, but I also normally snack between meals. C. When I am snacking heavily, I get in the habit of skipping regular meals. D. There are regular periods when I seem to be continually eating, with no planned meals. Response Group 13: D Group 14 A. I don't think much about trying to control unwanted eating urges. B. At least some of the time, I feel my thoughts are pre-occupied with trying to control my eating urges. C. I feel that frequently I spend much time thinking about how much I ate or about trying not to eat anymore. D. It seems to me that most of my waking hours are pre-occupied by thoughts about eating or not eating. I feel like I'm constantly struggling not to eat. Response Group 14: D Group 15 A. I don't think about food a great deal. B. I have strong craving for food but they last only for brief periods of time. C. I have days when I can't seem to think about anything else but food. D. Most of my days seem to be pre-occupied with thoughts about food. I feel like I live to eat. Response Group 15: C Group 16 A. I usually know whether or not I'm physically hungry. I take the right portion of food to satisfy me. B. Occasionally, I feel uncertain about knowing whether or not I'm physically hungry. A these times it's hard to know how much food I should take to satisfy me. C. Even though I might know how many calories I should eat, I don't have any idea what is a normal amount of food for me. Response Group 16: C Binge Eating Score: 39 Score less than 17 Minimal Risk Score between 18-26 Moderate Risk Score between 27-46 High Risk Assessment & Plan Assessment & Plan (1) Anxiety: Code(s): F41.9 - Anxiety disorder, unspecified (2) Depression, unspecified: Code(s): F32.A - Depression, unspecified Plan The patient has been cleared from a behavioral health standpoint and will follow up for support 1-3 weeks after surgery. She has been advised to continue attending outpatient counseling with current provider (Dr. Rowell) Next brady: 1-3 weeks PO. Telehealth Telehealth Telehealth Platform: [facility] Location of provider rendering services: other Patient Identification confirmed using: Name, : Yes Telehealth method: voice only Patient verbally consented to treatment: Yes Patient informed of any privacy concerns related to visit: Yes Minutes spent on Phone/Video with Pt.: 45 Coding Level of Care Code Established Pt Tele Psytx 45 mins ([id number]) Patient Type Established Diagnoses Anxiety F41.9 Depression, unspecified F32.A Additional Codes PHQ-9 - 49542 - PHQ-9 Billing: Yes ([id number]) Time Spent (min) 45 Comment start time: 11:15am- end time: 12:00pm
--- OUTSIDE RECORDS SUMMARY | 2024-11-24 13:51 | XMS_ITS | Encounter Summary ---
Author Organization [facility] Address [address] [place] [address] Phone Care Team Providers Care Delivery Professional Name Role Phone Haven Adorno MD Primary Care Provider [phone]- [phone] Encounter Details Date Type Department Care Team (Late st Contact Info) Description 07/16/2022 Documentation Only [facility] [address] [place] [address] Keturah Mccracken Social History Tobacco [...] on filedocumented in this encounter Care Teams Delivery Professional Relationship Specialty Start Date End Date Haven Adorno MD [address], [place] PCP - General Internal Medicine 06/25/22 documented as of this encounter
--- OUTSIDE RECORDS SUMMARY | 2024-11-24 13:51 | XMS_ITS | Clinical Summary ---
Author Organization [facility] Facility Address [address] [address] Care Team Providers Care Continuous Pillowcase Cutter Name Role Phone Haven Adorno MD Primary Care Provider +1- [phone] Allergies Active Allergy Reactions Criticality Noted Date [...] at night if needed 9 Active Multiple Vitamins-[place] als (MULTIVITAMIN ADULT EXTRA C PO) Take [...] ONE CARE DUAL SNP ([id number]) [place]IL[place]YNN [id number] ONE CARE DUAL SNP ([id number]) Care Teams Continuous Pillowcase Cutter Relationship Specialty Start Date End Date Haven Adorno MD [address] [place], [place] PCP - General Internal Medicine 06/25/22
--- OUTSIDE RECORDS SUMMARY | 2024-11-24 13:51 | XMS_ITS | Clinical Summary ---
Author Organization [facility] Address [address] [place] [address] Care Team Providers Care Outsewer Name Role Phone Devang Willis MD Primary Care Provider +1- [phone] Medical History Medical History Date Comments Asthma [...] Name Priority Date/Time Associated Diagnosis Comments [facility] SCREENING DIGITAL Routine 05/28/2023 9:17 AM EDT Encounter for screening mammogram for malignant neoplasm of breast from Last 3 Months or Most Recently Relevant to Health Maintenance Results * [facility] SCREENING DIGITAL (05/28/2023 9:17 AM EDT) Anatomical Region Laterality Modality Mammography 05/28/2023 8:01 AM EDT Narrative 05/28/2023 9:17 AM EDT [facility] Diagnostic Imaging Department [address] [place], [place] [id number] Patient: ??MICHAEL DAVENPORT ?/Age/Sex: 1960 - 63 - F Unit#: ??[id number] ? Location/Status: ??SPDIMAM/REG CLI ? Mnemonic/Ordering Site: ??DIGSC/SPMAM Ordering Physician: ??DEVANG WILLIS MD [facility] Screening Digital - 05/28/23 - 830 Report Status:Signed EXAM: [facility] Screening Digital EXAM DATE AND TIME: 05/28/2023 8:32 AM HISTORY: ??Annual screening COMPARISON: ??10/15/2021, 07/20/2019, 08/14/2017 TECHNIQUE: Bilateral digital breast tomosynthesis was performed in the CC and MLO projections. Computer aided detection with [employer] 3D 3.1 was employed. TISSUE DENSITY: a. [...] 0917 Procedure Note Emiliana Dominique - 10/27/2023 [facility] Diagnostic Imaging Department [address] [place] [id number] Patient: MICHAEL DAVENPORT./Age/Sex: 1960 - 63 - F Unit#: [id number] Location/Status: [facility] CLI Mnemonic/Ordering Site: [facility] Ordering Physician: DEVANG WILLIS MD [facility] Screening Digital - 05/28/23 - 830 Report Status:Signed EXAM: Daniel Screening Digital EXAM DATE AND TIME: 05/28/2023 8:32 AM HISTORY: Annual screening COMPARISON: 10/15/2021, 07/20/2019, 08/14/2017 TECHNIQUE: Bilateral digital breast tomosynthesis was performed in the CCand MLO projections. Computer aided detection with [employer] 3D 3.1was employed. TISSUE DENSITY: a. The [...] Recently Relevant to Health Maintenance Care Teams Outsewer Relationship Specialty Start Date End Date Devang Willis MD [address] [place] [id number] PCP - General Internal Medicine 06/23/19
== END 2024-11-24 13:12 | disposition home or self-care (01) ==
LOC: HO.HBST 11:17
PROVIDERS: PCP Internal Medicine; Visit Provider Counselor Mental Health
DX: F32.1 Major depressive disorder, single episode, moderate (principal); F41.9 Anxiety disorder, unspecified
CPT/HCPCS: 90834

== ENCOUNTER 2024-12-26 08:12 | Outpatient (AMB) | payer OTHER, SELFPAY ==
--- OUTSIDE RECORDS SUMMARY | 2024-12-26 08:29 | XMS_ITS | Encounter Summary ---
Author Organization [facility] Address [address] [place] [address] Phone Care Team Providers Care Hardwood Floor Layer Name Role Phone Haven Adorno MD Primary Care Provider +1- [phone] Encounter Details Date Type Department Care Team (Late st Contact Info) Description 07/16/2022 Documentation Only [facility] [address] [place] [address] Keturah Mccracken Social History Tobacco [...] on filedocumented in this encounter Care Teams Hardwood Floor Layer Relationship Specialty Start Date End Date Haven Adorno MD [address] [place], [place] PCP - General Internal Medicine 06/25/22 documented as of this encounter
--- OUTSIDE RECORDS SUMMARY | 2024-12-26 08:29 | XMS_ITS | Clinical Summary ---
Author Organization [facility] Address [address] [place] [id number] Care Team Providers Care Bulk Picker Name Role Phone Devang Willis MD Primary Care Provider +1- [phone] Medical History Medical History Date Comments Asthma [...] Screening 05/28/2025 05/28/20, 10/15/2021, 07/20/2019 RSV Immunization Adult Patients (1 - 1-dose 75+ series) 2033 HIB [...] Procedure Name Priority Date/Time Associated Diagnosis Comments [facility] SCREENING DIGITAL Routine 05/28/2023 9:17 AM EDT Encounter for screening mammogram for malignant neoplasm of breast from Last 3 Months or Most Recently Relevant to Health Maintenance Results * [facility] SCREENING DIGITAL (05/28/2023 9:17 AM EDT) Anatomical Region Laterality Modality Mammography 05/28/2023 8:01 AM EDT Narrative 05/28/2023 9:17 AM EDT [facility] Diagnostic Imaging Department [address] [place], [place] [id number] Patient: ??MICHAEL DAVENPORT ?/Age/Sex: 1960 - 63 - F Unit#: ??[id number] ? Location/Status: ??SPDIMAM/REG CLI ? Mnemonic/Ordering Site: ??DIGSC/SPMAM Ordering Physician: ??DEVANG WILLIS MD [facility] Screening Digital - 05/28/23 - 830 Report Status:Signed EXAM: [facility] Screening Digital EXAM DATE AND TIME: 05/28/2023 8:32 AM HISTORY: ??Annual screening COMPARISON: ??10/15/2021, 07/20/2019, 08/14/2017 TECHNIQUE: Bilateral digital breast tomosynthesis was performed in the CC and MLO projections. Computer aided detection with [employer] 3D 3.1 was employed. TISSUE DENSITY: a. [...] DOMINIQUE MD Dic Date/Time: ??05/28/23914 Sign date/Time: ??05/28/23916 Procedure Note Emiliana Dominique - 10/27/2023 [facility] Diagnostic Imaging Department [address] [place], [place] [id number] Patient: MICHAEL DAVENPORT./Age/Sex: 1960 - 63 - F Unit#: [id number] Location/Status: [facility] CLI Mnemonic/Ordering Site: [facility] Ordering Physician: DEVANG WILLIS MD [facility] Screening Digital - 05/28/23 - 830 Report Status:Signed EXAM: Daniel Screening Digital EXAM DATE AND TIME: 05/28/2023 8:32 AM HISTORY: Annual screening COMPARISON: 10/15/2021, 07/20/2019, 08/14/2017 TECHNIQUE: Bilateral digital breast tomosynthesis was performed in the CCand MLO projections. Computer aided detection with [employer] 3D 3.1was employed. TISSUE DENSITY: a. The [...] Recently Relevant to Health Maintenance Care Teams Bulk Picker Relationship Specialty Start Date End Date Devang Willis MD [address] [place] [id number] PCP - General Internal Medicine 06/23/19
--- OUTSIDE RECORDS SUMMARY | 2024-12-26 08:30 | XMS_ITS | Clinical Summary ---
Author Organization [facility] Facility Address [address] [address] Care Team Providers Care Line Tender Flakeboard Name Role Phone Haven Adorno MD Primary Care Provider +1- [phone] Allergies Active Allergy Reactions Criticality Noted Date [...] at night if needed 9 Active Multiple Vitamins-[place] als (MULTIVITAMIN ADULT EXTRA C PO) Take [...] Colorectal Cancer Screening: Sigmoidoscopy 2007 Influenza Vaccine (Season Ended) 2025 Hepatitis B Vaccine Aged Out No longe r eligible based on patient's age to complete this topic Insurance ONE CARE DUAL SNP (A2793) [place] [id number] ONE CARE DUAL SNP (A2793) Care Teams Line Tender Flakeboard Relationship Specialty Start Date End Date Haven Adorno MD [address] [place], [place] PCP - General Internal Medicine 06/25/22
--- NOTE | 2024-12-26 11:05 | MHC.OFFVISWM ---
VS Expanded 12/26/24 11:18 Height 5 ft 4 in Weight 190 lb 2 oz BMI 32.6 Body Fat % 38.8 Body Fat Mass 73.7 Fat Free Mass 116.4 Visceral Fat Rating 12 Body Water % 42 Body Water Mass 79.8 Basal Metabolic Rate/Score 1,521 Intake Visit Reasons: TV Pre Op LSG 01/05/25 Allergies cyclobenzaprine Allergy (Intermediate, Verified 12/26/24 11:05) Itching Penicillins Allergy (Intermediate, Verified 12/26/24 11:05) Rash Sulfa (Sulfonamide Antibiotics) Allergy (Intermediate, Verified 12/26/24 11:05) Nausea and Vomiting sulfamethoxazole [From Bactrim] Allergy (Intermediate, Verified 12/26/24 11:05) Diarrhea trimethoprim [From Bactrim] Allergy (Intermediate, Verified 12/26/24 11:05) Diarrhea Medication List - Last Reconciled 12/26/24 by Emory Padilla MD albuterol sulfate 90 mcg/actuation 2 puffs inhalation Q6H PRN cholecalciferol (vitamin D3) 125 mcg PO DAILY docusate sodium (Colace) 100 mg PO DAILY hydrochlorothiazide 12.5 mg PO DAILY lorazepam 0.5 mg PO BID PRN ondansetron 4 mg PO Q12H pantoprazole 40 mg PO DAILY pantoprazole 40 mg PO DAILY polyethylene glycol 3350 17 grams PO DAILY sucralfate 10 mL PO BID thiamine HCl (vitamin B1) 100 mg PO DAILY zolpidem 5 mg PO BEDTIME PRN HPI HPI TV Pre Op LSG 01/05/25: Details: Start time: 10.56am, End time: 11.30am I spent 29 minutes speaking with the patient on the phone plus an additional 5 minutes reviewing and updating records for a total of 34 minutes HPI Comments Details: Overall weight loss: 32.2lbs, or 14.5% TBWL Is doing 2 Celebrate Rebuild protein shakes (1/2 scoop each in 8oz almond milk), 3 Celebrate protein bars, and one meal (4 forks of meat and 4 forks of salad or vegetables) Exercise: walking outside [facility] Medical History (Updated 12/13/24 @ 15:57 by Emory Padilla MD) GERD (gastroesophageal reflux disease) Insomnia Anxiety Asthma BMI 38.0-38.9,adult Obesity Surgical History (Updated 10/28/24 @ 15:35 by Rashi Calloway RN) History of spinal surgery Hx of lithotripsy Hx of cholecystectomy Family History Mother Alzheimer disease Father Cancer Son No problems noted. Son No problems noted. Daughter No problems noted. Social History Are you a primary clinical care coordinator to a significant other at home: No Do you presently have visiting nurse or other home services: No Alcohol intake: never Patient Tobacco Use Status: Never used Tobacco Telehealth Telehealth Telehealth Platform: Telephone Location of provider rendering services: practice address Location of patient: address on file Patient Identification confirmed using: Name, : Yes Telehealth method: voice only Patient verbally consented to treatment: Yes Patient verbally consented to billing insurance company: Yes Patient informed of any privacy concerns related to visit: Yes Minutes spent on Phone/Video with Pt.: 34 Assessment & Plan Assessment & Plan (1) Obesity: Code(s): E66.9 - Obesity, unspecified Category: Medical Qualifiers: Obesity type: due to excess calories Obesity classification: adult class 2 (BMI 35 - 39.9) Serious obesity comorbidity presence: with serious comorbidity Body mass index: BMI 38.0-38.9 Qualified Code(s): E66.812 - Obesity, class 2; E66.01 - Morbid (severe) obesity due to excess calories; Z68.38 - Body mass index [BMI] 38.0-38.9, adult Plan: 1. Plan for lap sleeve gastrectomy including upper GI endoscopy. All tests has been completed and reviewed and the patient is cleared for the surgery. If diaphragmatic or ventral hernias are present at time of surgery, these will be repaired laparoscopically as well. The surgery does not replace the need to change your lifestlyle which is the cause of the obesity problem. The surgery provides the motivation to try again to change your lifestyle, it reduces the appetite and make the transition to a better lifestyle easier and doubles the amount of weight you would lose compared to doing the lifestyle change without the surgery. You will need to be on a liquid diet with protein shakes for 2 weeks before surgery to maximize weight loss and boost your nutritional status to recover better from surgery and also for the first two weeks after surgery to let the stomach heal before we introduce other foods. After the first 2 weeks we will introduce protein bars and soft foods like scrambled eggs, cottage cheese and yogurt and after the 6th week will introduce meat, fish and cooked vegetables in small amounts. Over time you should be able to eat everything in small amounts. Side effects like nausea, vomiting, heartburn or abdominal pain are not common in the practice unless you are not following in the practice. This operation requires lifetime commitment to following in our practice and communication with me. You will much less weight and experience side effects if you don?t communicate or not following in the practice. Complications are rare and in our practice is about 1/10 of the national average. However, you can develop bleeding that may require transfusion (hasn?t happened for year in the practice), you may from complications (we did not have any deaths in the practice) and infections. Infections are usually a result of breakdown in communication or not understanding or following directions correctly. They are difficult to treat, they can happen during the first 6 weeks, they may require to be in the hospital for weeks or even months, not being able to eat by mouth and you may have drains and surgeries to try and correct the issue. Other risks and complications include possible conversion to an open procedure, leaks, small bowel obstruction, blood clots, cardiac, or pulmonary complications, as care home complications such as ulcers, insufficient weight loss and vitamin deficiencies. So far she has proven to be an excellent communicator and very compliant with all our directions accomplishing a great weight loss. I believe that she is an excellent candidate and she is ready. 1. 2. The patient participated in a structured preoperative lifestyle intervention program supervised by a physician the 3 months preceding the surgical procedure. The lifestyle intervention was provided by my proprietary [employer] software under my supervision and included a structured nutritional plan with a specific daily protein intake goal (2 Premier protein shakes (4oz of Premier mixed with 4oz almond milk), 2.5 Pure protein bars and one meal with 11 forkfuls of protein and 11 forkfuls of salad), an exercise plan with a 2000 calorie burn weekly goal (stationary bike with resistance 4-10 buring 285 calories daily), weekly behavior modification guidance and completion of eight 1-hour online nutritional classes and passing successfully the corresponding quizzes. Adherence to preoperative care plan was demonstrated by completing an extensive preoperative work-up. Program participation was demonstrated by completing 4 visits with our medical team and by sharing weekly weight measurements weekly for 3 consecutive months via an approved body composition scale. Compliance to the lifestyle intervention was demonstrated by achieving a 23.6lbs weight-loss or 7% total body weight loss (TBWL). No medications were used to achieve this weight loss. In our published experience an over 7% preoperative TBWL, achieved by meeting the diet and exercise goals of our program improves surgical outcomes, reduces the potential for surgical complications, and predicts a statistically significant higher weight loss up to 6 years postoperatively. 2. Preop prescriptions were provided and explained the purpose of each one. Need to be purchased preop. Start Pantoprazole now as you get it from the pharmacy, 1 pill per day. Sucralfate and Zofran are for after surgery as needed. 3. Bowel prep: please do 7 packets of Miralax mixing each one with a an 8oz glass of water, crystal light, gatorade zero, or propel on 01/03/25 and the same amount on 01/04/25. The Miralax you begin with one packet at a time in 8oz water or crystal light, gatorade zero, or propel as early in the day as you can and you do them back to back until you finish them. Continue the protein shakes during the bowel prep. 4. Needs to purchase 1oz medicine cups . 5. Needs to purchase Children's liquid Tylenol for postop pain control. 6. Avoid aspirin, motrin, Advil, Aleve, Ibuprofen, Naproxyn. Tylenol is OK. 7. She needs to purchase the Celebrate multivitamins from the hospital's gift shop. 8. Will do basic preop blood work-up any day between Thursday12/27/24 and Thursday12/30/24 fasting for 12 hours and is scheduled to see the Anesthesiologist prior to the day of surgery. 9. Importance of adherence to postop folllow-up and recommendations was underscored and she understands that. 10. Stop food and bars as of tomorrow 12/27/24 and continue with 4 Celebrate Rebuild protein shakes (ONE scoop EACH in 8oz almond milk) at 7am-9am, 10am-12pm, 1pm-3pm, 4pm-6pm and one more Celebrate Rebuild protein shake with TWO scoops in 8oz of almond milk at 7pm-9pm 11. No soups, broths or V8 12. The patient's medical history has been reviewed and they are considered low risk for post op DVT and therefore DVT prophylaxis is not considered necessary. Travel after surgery was reviewed. The patient has not disclosed any travel plans during the first 30 days after surgery and they have been advised that within the first 30 days after surgery any bus, plane, train or car travel over 2 hours in duration is contraindicated due to the possibility of developing blood clots from immobility. Any travel, needs to include periods of ambulation of 10 minutes in duration every 2 hours. Patient was instructed to discuss any plans for travel during this period with their bariatric surgeon. 13. As of tomorrow, please check your blood pressure daily in the morning. If your blood pressure is: Below 120/70: do not take the Hydrochlorothiazide 121/71 to 130/80: take HALF of pill of Hydrochlorothiazide over 131/81: take the whole pill of Hydrochlorothiazide 14. Please take at the day of surgery the following medications: Hydrochlorothiazide if the blood pressure reading justifies it based on the above parameters 15. Stop any control pills and don't use them for one month after surgery 16. Absolutely no smoking or vaping, or marijuana until the surgery and for at least the first 4 weeks. Only nicotine patches are allowed. 17. Send me weight measurements on and then on the day of surgery before you go to the hospital. 18. Avoid any steroids by mouth for any reason. Let me know if someone prescribes them to you 19. These instructions supersede anything else you read in the handbook, anything you watched in videos or classes or you were told by any other provider. If there is any conflict, you follow the above instructions and nothing else. Orders: Orders TSH reflex Free T4 Today E66.01 - Morbid (severe) obesity due to excess calories, E66.812 - Obesity, class 2, Z68.38 - Body mass index [BMI] 38.0-38.9, adult Hemoglobin A1c Today E66.01 - Morbid (severe) obesity due to excess calories, E66.812 - Obesity, class 2, Z68.38 - Body mass index [BMI] 38.0-38.9, adult Lipid Panel Today E66.01 - Morbid (severe) obesity due to excess calories, E66.812 - Obesity, class 2, Z68.38 - Body mass index [BMI] 38.0-38.9, adult C Reactive Protein Today E66.01 - Morbid (severe) obesity due to excess calories, E66.812 - Obesity, class 2, Z68.38 - Body mass index [BMI] 38.0-38.9, adult Insulin Today E66.01 - Morbid (severe) obesity due to excess calories, E66.812 - Obesity, class 2, Z68.38 - Body mass index [BMI] 38.0-38.9, adult Comprehensive Met. Panel Today E66.01 - Morbid (severe) obesity due to excess calories, E66.812 - Obesity, class 2, Z68.38 - Body mass index [BMI] 38.0-38.9, adult Prothrombin Time INR Today E66.01 - Morbid (severe) obesity due to excess calories, E66.812 - Obesity, class 2, Z68.38 - Body mass index [BMI] 38.0-38.9, adult Type and Screen Today E66.01 - Morbid (severe) obesity due to excess calories, E66.812 - Obesity, class 2, Z68.38 - Body mass index [BMI] 38.0-38.9, adult Partial Thromboplastin Time Today E66.01 - Morbid (severe) obesity due to excess calories, E66.812 - Obesity, class 2, Z68.38 - Body mass index [BMI] 38.0-38.9, adult Complete Blood Count Auto Diff Today E66.01 - Morbid (severe) obesity due to excess calories, E66.812 - Obesity, class 2, Z68.38 - Body mass index [BMI] 38.0-38.9, adult Medications: New pantoprazole 40 mg PO DAILY 90 tabs 0RF K21.9 - Gastro-esophageal reflux disease without esophagitis sucralfate 10 mL PO BID 600 mL 2RF K21.9 - Gastro-esophageal reflux disease without esophagitis ondansetron Only take one every 12 hours as needed if you have nausea 4 mg PO Q12H 20 tabs 0RF nausea and vomiting R11.0 - Nausea polyethylene glycol 3350 Mix each measuring cup with 8oz of water, Crystal light, or Gatorade zero, or Propel and do 7 measuring cups on 01/03/25 and another 7 measuring cups on 01/05/24 17 grams PO DAILY 238 grams 0RF Z01.818 - Encounter for other preprocedural examination
[2024-12-26 11:18] VITALS: BMI 32.6
== END 2024-12-26 11:31 | disposition home or self-care (01) ==
LOC: HO.HBS 08:12
PROVIDERS: PCP Internal Medicine; Visit Provider Surgery
DX: E66.811 Obesity, class 1 (principal); Z68.32 Body mass index [BMI] 32.0-32.9, adult
CPT/HCPCS: 99499

== ENCOUNTER → 2024-12-26 08:12 | Outpatient (BNVA) | payer OTHER, SELFPAY | PROVIDERS: PCP Internal Medicine; Visit Provider Surgery ==

== ENCOUNTER → 2024-12-27 08:13 | Outpatient (BNVA) | payer OTHER, SELFPAY | PROVIDERS: PCP Internal Medicine; Visit Provider Surgery ==

== ENCOUNTER 2025-01-11 09:01 | Outpatient (AMB) | payer OTHER, SELFPAY ==
[2025-01-11 09:06] VITALS: BP 134/72; PULSE 63; O2SAT 98; BMI 32.1
--- NOTE | 2025-01-11 09:06 | HO.NEPHOV_ITS ---
Vital Signs 01/11/25 09:06 Height 5 ft 4 in Weight 187 lb BMI 32.1 BP 134/72 Blood Pressure Location Rt brachial Position Sitting Pulse 63 Pulse Source Pulse Oximeter Pulse Oximetry (%) 98 Oxygen Delivery Method Room Air Intake Visit Reasons: Hypertension/ Conf Allergies cyclobenzaprine Allergy (Intermediate, Verified 01/11/25 09:07) Itching Penicillins Allergy (Intermediate, Verified 01/11/25 09:07) Rash Sulfa (Sulfonamide Antibiotics) Allergy (Intermediate, Verified 01/11/25 09:07) Nausea and Vomiting/diarrhea sulfamethoxazole [From Bactrim] Allergy (Intermediate, Verified 01/11/25 09:07) Diarrhea/nausea & vomiting trimethoprim [From Bactrim] Allergy (Intermediate, Verified 01/11/25 09:07) Diarrhea/nausea & vomiting Medication List - Last Reconciled 01/11/25 by Dawit Blake MD albuterol sulfate 90 mcg/actuation 2 puffs inhalation Q6H PRN cholecalciferol (vitamin D3) 125 mcg PO DAILY dexlansoprazole 60 mg PO DAILY dicyclomine 10 mg PO Q6H PRN docusate sodium (Colace) 100 mg PO DAILY linaclotide (Linzess) 145 mcg PO DAILY lorazepam 0.5 mg PO BID PRN ondansetron 4 mg PO Q12H pantoprazole 40 mg PO DAILY polyethylene glycol 3350 17 grams PO DAILY sucralfate 10 mL PO BID thiamine HCl (vitamin B1) 100 mg PO DAILY zolpidem 5 mg PO BEDTIME PRN HPI Comments Details: Middle-aged woman with the history of obesity and hypertension. She continues to struggle with her weight. She was evaluated by the weight management Clinic and she needs further follow- up. She underwent abdominal ultrasonogram showed bilateral hydronephrosis more on the right. She also has renal stones. She is asymptomatic. Currently on HCTZ 12.5 mg QD 06/22/24 c/o Hip pain- on Neurontin ;uses a walker ;Gained weight 01/11/25 Overall doing well. Lost weight 222 in Aug 2024 - down to 187 in December 2024 [facility] Medical History Sleep apnea Renal calculi HTN (hypertension) GERD (gastroesophageal reflux disease) Insomnia Anxiety Asthma BMI 38.0-38.9,adult Obesity Surgical History History of spinal surgery Hx of lithotripsy Hx of cholecystectomy Family History Mother Alzheimer disease Father Cancer Son No problems noted. Son No problems noted. Daughter No problems noted. Social History Are you a primary home visit field care manager to a significant other at home: No Do you presently have visiting nurse or other home services: No Alcohol intake: never Patient Tobacco Use Status: Never used Tobacco Physical Exam Vital Signs: Last Vital Signs Pulse 63 01/11/25 09:06 BP 134/72 01/11/25 09:06 Pulse Ox 98 01/11/25 09:06 Oxygen Delivery Method Room Air 01/11/25 09:06 BMI result Body Mass Index 32.1 Const General: comfortable Nutritional Appearance: well nourished Orientation/consciousness: patient oriented x3 HEENT Head: No normal to inspection Mouth: moist mucous membranes Neck Neck: Yes supple and Yes no JVD Resp Auscultation: clear to auscultation bilaterally and no rales Cardio Jugular venous distension: no JVD Palpation: no palpable S3 and no palpable S4 Heart sounds: no rubs GI Palpation (GI): Soft to palpation and nontender Percussion: No Fluid wave present General: Yes no CVA tenderness Back/Spine/Pelvis Back: no CVA tenderness Skin General skin exam: no rashes or lesions noted Neuro General: patient oriented x3 Extrem General: Yes no pedal edema and No clubbing Results Reviewed Nephrology Results: No Data to Display Assessment & Plan Assessment & Plan (1) HTN (hypertension): Code(s): I10 - Essential (primary) hypertension Category: Medical Plan: Blood pressure acceptable Stay on HCTZ 12.5 mg QD Stay on low-sodium diet She needs weight loss No change in medications (2) Hydronephrosis: Code(s): N13.30 - Unspecified hydronephrosis Category: Medical Plan: Abdominal ultrasonogram in November showed bilateral hydronephrosis. With renal stones and simple cyst Follow-up renal ultrasound did NOT show any hydronephrosis Renal function creatinine bumped up to 1.28 from 0.86 Increase PO fluid intake and repeat Renal USG STOP HCTZ 12.5 mg QD ( 01/11/25) (3) Obesity: Code(s): E66.9 - Obesity, unspecified Category: Medical Qualifiers: Obesity type: due to excess calories Obesity classification: adult class 2 (BMI 35 - 39.9) Serious obesity comorbidity presence: with serious comorbidity Body mass index: BMI 38.0-38.9 Qualified Code(s): E66.812 - Obesity, class 2; E66.01 - Morbid (severe) obesity due to excess calories; Z68.38 - Body mass index [BMI] 38.0-38.9, adult Plan: Continue to loose weight with diet and follow up with weight management (4) Nephrolithiasis: Code(s): N20.0 - Calculus of kidney Category: Medical Plan: 24 hr urine shows volume of 1325 Oxalate mildly elevated at 40 Needs to stay on low Oxalate diet - Avoid strawberries, nuts, etc; Discussed with Alexandra Increase PO fluid intake to maintain urine output of 2 L Low salt diet Orders: Orders Basic Metabolic Panel 2 Weeks N17.9 - Acute kidney failure, unspecified, N20.0 - Calculus of kidney US renal BI 2 Weeks I10 - Essential (primary) hypertension, N17.9 - Acute kidney failure, unspecified, N20.0 - Calculus of kidney Coding Level of Care Code Est Pt Level 4 (29379) Diagnoses HTN (hypertension) I10 Hydronephrosis N13.30 Class 2 severe obesity due to excess calories with serious comorbidity and body mass index (BMI) of 38.0 to 38.9 in adult E66.812; E66.01; Z68.38 Obesity type: due to excess calories Obesity classification: adult class 2 (BMI 35 - 39.9) Serious obesity comorbidity presence: with serious comorbidity Body mass index: BMI 38.0-38.9 Nephrolithiasis N20.0
--- OUTSIDE RECORDS SUMMARY | 2025-01-11 09:46 | XMS_ITS | Clinical Summary ---
Author Organization [facility] Facility Address [address] [address] Care Team Providers Care Machine Riveter Name Role Phone Haven Adorno MD Primary Care Provider +1- [phone] Allergies Active Allergy Reactions Criticality Noted Date [...] at night if needed 9 Active Multiple Vitamins-[place] als (MULTIVITAMIN ADULT EXTRA C PO) Take [...] limb movement disorder 07/14/2022 Anxiety 07/14/2022 Immunizations Immunization Administration Dates Next Due Pfizer SARS-COV-2 02/05/2021,01/15/2021 [...] Comments Breast Cancer Screening 1960 Pneumococcal Vaccine: 50+ Ye ars (1 of 2 - PCV) 1977 Colorectal Cancer Screening: Annual FOBT 2007 Colorectal Cancer Screening: Colonoscopy 2007 Colorectal Cancer Screening: Sigmoidoscopy 2007 Influenza Vaccine (Season Ended) 2025 Hepatitis B Vaccine Aged Out No longe r eligible based on patient's age to complete this topic Insurance [employer] Dual SNP ([id number]) [address] [id number] [employer] Dual SNP ([id number]) Care Teams Machine Riveter Relationship Specialty Start Date End Date Haven Adorno MD [address], [place] PCP - General Internal Medicine 06/25/22
--- OUTSIDE RECORDS SUMMARY | 2025-01-11 09:46 | XMS_ITS | Clinical Summary ---
Author Organization [address] Address [address] [place] [address] Phone Care Team Providers Care Solar Maintenance Technician Name Role Phone Devang Willis MD Primary Care Provider +1- [phone] Medical History Medical History Date Comments Asthma [...] Health Maintenance Due Date Last Done Comments Pneumococcal Vaccine: 50+ Years (1 of 2 - PCV) 1977 Zoster Vaccines (1 of 2) 2008 RSV Immunization Adult Patients (1 - Risk 60-74 years 1-dose series) 2018 Cholesterol Screening (Lipid Panel) 09/03/2022 Colorectal Cancer Screening: Colonoscopy 09/03/2022 Depression Screening 09/03/2022 Hepatitis C Screening 09/03/2022 Osteoporosis Screening (Bone Density Screening) 09/03/2022 Social Influencers of Health Screening 09/03/2022 Falls Risk Assessment 2023 COVID-19 Vaccine (3 - 2023-2 5 season) 2024 02/05/2021, 01/15/2021 Influenza Vaccine (Season Ended) 2025 Breast Cancer Screening 05/28/2025 05/28/20, 10/15/2021, 07/20/2019 Hypertension/CHF/CAD Annual BMP Blood Test 01/04/2026 01/04/2025 DTaP,Tdap,and Td Vaccines (2 - Td or Tdap) 04/12/2032 04/12/2022 HIB Vaccines Aged Out No longer eligi [...] age to complete this topic Meningococcal B Vaccine Aged Out No l onger eligible based on patient's age to complete this topic RSV Immunization Patients Under 20 months Aged Out No longer eligible b ased on patient's age to complete this topic Varicella Vaccines Aged Out No longer eligible based on patient's age to complete this topic Procedures Procedure Name Priority Date/Time Associated Diagnosis Comments BASIC METABOLIC PANEL Routine 01/04/2025 9:30 AM EDT Calculus of kidney Essential hypertension, benign ABBEY SCREENING DIGITAL Routine 05/28/2023 9:17 AM EDT Encounter for screening mammogram for malignant neoplasm of breast from Last 3 Months or Most Recently Relevant to Health Maintenance Results * (ABNORMAL) Basic metabolic panel (01/04/2025 9:30 AM EDT) Sodium 137 133 - 145 mmol/L LAB CHEMISTRY METHOD 01/04/2025 4:[address] [facility] Potassium 3.5 3.5 - 5.5 mmol/L LAB CHEMISTRY METHOD 01/04/2025 4:[address] [facility] Chloride 104 96 - 110 mmol/L LAB CHEMISTRY METHOD 01/04/2025 4:[address] [facility] CO2 27 21 - 32 mmol/L LAB CHEMISTRY METHOD 01/04/2025 4:[address] [facility] Anion Gap 6 3 - 11 LAB CHEMISTRY METHOD 01/04/2025 4:23 PM EDT [facility] Glucose 97 70 - 100 mg/dL LAB CHEMISTRY METHOD 01/04/2025 4:23 PM EDT [facility] BUN 23 5 - 25 mg/dL LAB CHEMISTRY METHOD 01/04/2025 4:23 PM EDT [facility] Creatinine 1.28(H) 0.50 - 1.10 mg/dL LAB CHEMISTRY METHOD 01/04/2025 4:23 PM EDT [facility] eGFR 46(L) >=60 mL/min/1. 73m2 LAB CHEMISTRY METHOD 01/04/2025 4:23 PM EDT [facility] Comment:Calculation based on the??Chronic Kidney Disease Epidemiology Collaboration (CKD-EPI) equation refit??without adjustment for race. BUN/Creatinine Ratio 18.0 LAB CHEMISTRY METHOD 01/04/2025 4:23 PM EDT [facility] Calcium 9.3 8.5 - 10.5 mg/dL LAB CHEMISTRY METHOD 01/04/2025 4:23 PM EDT [facility] Blood Venous blood specimen / Unknown Venipuncture / Unknown 01/04/2025 9:30 AM EDT 01/04/2025 11:29 AM EDT Dawit Blake MD LAB BLOOD ORDERABL ES Final Result [facility] [address] [place] [address], * ABBEY SCREENING DIGITAL (05/28/2023 9:17 AM EDT) Anatomical Region Laterality Modality Mammography 05/28/2023 8:01 AM EDT Narrative 05/28/2023 9:[address] [facility] Diagnostic Imaging Department [address] [place] [address] Patient: ??MICHAEL DAVENPORT ?/Age/Sex: 1960 - 63 - F Unit#: ??[id number] ? Location/Status: ??SPDIMAM/REG CLI ? Mnemonic/Ordering Site: ??DIGSC/SPMAM Ordering Physician: ??DEVANG WILLIS MD [facility] Screening Digital - 05/28/23 - 830 Report Status:Signed EXAM: [facility] Screening Digital EXAM DATE AND TIME: 05/28/2023 8:32 AM HISTORY: ??Annual screening COMPARISON: ??10/15/2021, 07/20/2019, 08/14/2017 TECHNIQUE: Bilateral digital breast tomosynthesis was performed in the CC and MLO projections. Computer aided detection with [employer] 3D 3.1 was employed. TISSUE DENSITY: a. [...] Signed by: ??EMILIANA DOMINIQUE MD Dic Date/Time: ??05/28/23 0915 Sign date/Time: ??05/28/23 0917 Procedure Note Emiliana Dominique - 10/27/2023 [facility] Diagnostic Imaging Department [address] [place] [id number] Patient: MICHAEL DAVENPORT /Age/Sex: 1960 - 63 - F Unit#: [id number] Location/Status: [facility] CLI Mnemonic/Ordering Site: [facility] Ordering Physician: DEVANG WILLIS MD [facility] Screening Digital - 05/28/23 - 830 Report Status:Signed EXAM: [facility] Screening Digital EXAM DATE AND TIME: 05/28/2023 8:32 AM HISTORY: Annual screening COMPARISON: 10/15/2021, 07/20/2019, 08/14/2017 TECHNIQUE: Bilateral digital breast tomosynthesis was performed in the CCand MLO projections. Computer aided detection with [employer] 3D 3.1was employed. TISSUE DENSITY: a. The [...] screening mammogram BILATERAL in 1 year. 3341F, 7064F Dictating Physician: EMILIANA DOMINIQUE MD Electronically Signed by: EMILIANA DOMINIQUE MD Dic Date/Time: 05/28/23914 Sign date/Time: 05/28/23916 Devnag Willis MD IMG BI PROCEDURES Final Re sult from Last 3 Months or Most Recently Relevant to Health Maintenance Insurance [facility] Member Subscriber Plan / Payer (Ef fective 2025-Present) Name:[place] Michael Relation to Subscriber:Self Name:[place] Payer ID:[id number] Group ID:Not on file Type:Not on file Address: [facility] [address] [id number] MEDICAID - [place] Care Teams Solar Maintenance Technician Relationship Specialty Start Date End Date Devang Willis MD [address] [place] [address] PCP - General Internal Medicine 06/23/19
--- OUTSIDE RECORDS SUMMARY | 2025-01-11 09:46 | XMS_ITS | Encounter Summary ---
Author Organization [facility] Address [address] [place] [address] Phone Care Team Providers Care Map Compiler Name Role Phone Haven Adorno MD Primary Care Provider +1- [phone] Encounter Details Date Type Department Care Team (Late st Contact Info) Description 07/16/2022 Documentation Only [facility] [address] [place] [address] Keturah Mccracken Social History Tobacco [...] on filedocumented in this encounter Care Teams Map Compiler Relationship Specialty Start Date End Date Haven Adorno MD [address] [place], [place] PCP - General Internal Medicine 06/25/22 documented as of this encounter
== END 2025-01-11 09:20 | disposition home or self-care (01) ==
LOC: HO.HKAS 09:02
PROVIDERS: PCP Internal Medicine; Visit Provider Internal Medicine Hypertension Specialist
DX: I10 Essential (primary) hypertension (principal); N13.30 Unspecified hydronephrosis; E66.812 Obesity, class 2; E66.01 Morbid (severe) obesity due to excess calories; Z68.38 Body mass index [BMI] 38.0-38.9, adult; N20.0 Calculus of kidney
CPT/HCPCS: 99214

== ENCOUNTER → 2025-01-11 09:01 | Outpatient (BNVA) | payer OTHER, SELFPAY | PROVIDERS: PCP Internal Medicine; Visit Provider Internal Medicine Hypertension Specialist | DX: I10 Essential (primary) hypertension (principal); E66.812 Obesity, class 2; N13.30 Unspecified hydronephrosis; N17.9 Acute kidney failure, unspecified; N20.0 Calculus of kidney; Z68.32 Body mass index [BMI] 32.0-32.9, adult | CPT/HCPCS: 99212 ==

== ENCOUNTER 2025-03-22 09:10 | Outpatient (AMB) | payer OTHER, SELFPAY ==
--- OUTSIDE RECORDS SUMMARY | 2025-03-22 09:20 | XMS_ITS | Clinical Summary ---
Author Organization [address] [facility] Address [address] [place] [address] Phone Care Team Providers Care Outside Installation Machinist Name Role Phone Devang Willis MD Primary Care Provider +1- [phone] Encounters Date Type Department Care Team Description 01/31/2025 9:06 AM EDT - 01/31/2025 11:59 PM EDT Hospital Encounter [facility] Ultrasound [address] [place] [address] Essential (primary) hypertension; Calculus of kidney; Acute kidney failure, unspecified (CMS/HCC V24) Discharge Disposition: Home or Self Care from Last 3 Months Medical History Medical History Date Comments Asthma [...] Depression Screening 09/03/2022 Hepatitis C Screening 09/03/2022 Medicare Annual Wellness Visit 09/03/2022 Osteoporosis Screening (Bone Density Screening) 09/03/2022 Social Influencers of Health Screening 09/03/2022 Falls Risk Assessment 2023 COVID-19 Vaccine ( - 2023-2 5 season) 2024 02/05/2021, 01/15/2021 Influenza Vaccine (#1) 2025 Breast Cancer Screening 05/28/2025 05/28/20, 10/15/2021, 07/20/2019 Hypertension/CHF/CAD Annual BMP Blood Test 01/25/2026 01/25/2025, 01/04/2025 DTaP,Tdap,and Td Vaccines (2 - Td [...] Procedure Name Priority Date/Time Associated Diagnosis Comments US RETROPERITONEAL COMPLETE Routine 01/31/2025 9:31 AM EDT Essential (primary) hypertension Calculus of kidney Acute kidney failure, unspecified (CMS/HCC V24) BASIC METABOLIC PANEL Routine 01/25/2025 11:25 AM EDT Calculus of kidney Acute kidney failure, unspecified (CMS/HCC V24) BASIC METABOLIC PANEL Routine 01/04/2025 9:30 AM EDT Calculus of kidney Essential hypertension, benign DANIEL SCREENING DIGITAL Routine 05/28/2023 9:17 AM EDT Encounter for screening mammogram for malignant neoplasm of breast from Last 3 Months or Most Recently Relevant to Health Maintenance Results * US Retroperitoneal Complete (01/31/2025 9:31 AM EDT) Anatomical Region Laterality Modality Body Ultrasound 01/31/2025 1:15 PM EDT Impressions 01/31/2025 1:26 PM EDT Numerous parapelvic cysts are favored, though hydronephrosis not excluded. CT urogram could be performed if desired. -------- FINAL REPORT -------- Dictated By: Edi Morales Dictated Date: 01/31/2025 13:15 ET Assigned Physician: Edi Morales Reviewed and Electronically Signed By: Edi Morales Signed Date: 01/31/2025 13:26 ET Workstation ID: [id number] Transcribed By: Self Edit Transcribed Date: 01/31/2025 13:15 ET Narrative 01/31/2025 1:26 PM EDT PROCEDURE: US RETROPERITONEAL COMPLETE INDICATION: essential primary hypertension,calculus of kidney,acute kidney failure TECHNIQUE: 2-D greenfield scale, color Doppler imaging of the kidneys. COMPARISON: No priors available. FINDINGS: Right kidney: There are numerous peripelvic cysts. The right kidney measures 10.5cm. Left kidney: There are numerous peripelvic cysts. The left kidney measures 8.9cm. In the bladder without jets visualized Procedure Note Edi Morales MD - 01/31/2025 PROCEDURE: US RETROPERITONEAL COMPLETE INDICATION: essential primary hypertension,calculus of kidney,acutekidney failure TECHNIQUE: 2-D greenfield scale, color Doppler imaging of the kidneys. COMPARISON: No priors available. FINDINGS: Right kidney: There are numerous peripelvic cysts. The right kidneymeasures 10.5cm. Left kidney: There are numerous peripelvic cysts. The left kidney measures8.9cm. In the bladder without jets visualized IMPRESSION: Numerous parapelvic cysts are favored, though hydronephrosis not excluded.CT urogram could be performed if desired. -------- FINAL REPORT -------- Dictated By: Edi Morales Dictated Date: 01/31/2025 13:15 ET Assigned Physician: Edi Morales Reviewed and Electronically Signed By: Edi Morales Signed Date: 01/31/2025 13:26 ET Workstation ID: [id number] Transcribed By: Self Edit Transcribed Date: 01/31/2025 13:15 ET us Dawti Blake MD [facility] PROCEDURES Final Result * (ABNORMAL) Basic metabolic panel (01/25/2025 11:25 AM EDT) Only the most recent of2 resultswithin the time period is included. Sodium 139 133 - 145 mmol/L LAB CHEMISTRY METHOD 01/25/2025 1:53 PM [facility] Potassium 3.8 3.5 - 5.5 mmol/L LAB CHEMISTRY METHOD 01/25/2025 1:53 PM [facility] Chloride 106 96 - 110 mmol/L LAB CHEMISTRY METHOD 01/25/2025 1:53 PM [facility] CO2 23 21 - 32 mmol/L LAB CHEMISTRY METHOD 01/25/2025 1:53 PM [facility] Anion Gap 10 3 - 11 LAB CHEMISTRY METHOD 01/25/2025 1:53 PM [facility] Glucose 94 70 - 100 mg/dL LAB CHEMISTRY METHOD 01/25/2025 1:53 PM [facility] BUN 21 5 - 25 mg/dL LAB CHEMISTRY METHOD 01/25/2025 1:53 PM [facility] Creatinine 1.09 0.50 - 1.10 mg/dL LAB CHEMISTRY METHOD 01/25/2025 1:53 PM [facility] eGFR 56(L) >=60 mL/min/1. 73m2 LAB CHEMISTRY METHOD 01/25/2025 1:53 PM [facility] Comment:Calculation based on the Chronic Kidney Disease Epidemiology Collaboration (CKD-EPI) equation refit without adjustment for race. BUN/Creatinine Ratio 19.3 LAB CHEMISTRY METHOD 01/25/2025 1:53 PM [facility] Calcium 9.8 8.5 - 10.5 mg/dL LAB CHEMISTRY METHOD 01/25/2025 1:53 PM EDT [facility] Blood Venous blood specimen / Unknown Venipuncture / Unknown 01/25/2025 11:25 AM EDT 01/25/2025 11:41 AM EDT Dawit Blake MD LAB BLOOD ORDERABL ES Final Result [facility] [address] [place] [address], * DANIEL SCREENING DIGITAL (05/28/2023 9:17 AM EDT) Anatomical Region Laterality Modality Mammography 05/28/2023 8:01 AM EDT Narrative 05/28/2023 9:17 AM EDT [facility] Diagnostic Imaging Department [address] [place] [address] Patient: MICHAEL DAVENPORTO.B./Age/Sex: 1960 - 63 - F Unit#: [id number] [facility]/Ordering Site: DIGSC/SPMAM Ordering Physician: DEVANG WILLIS MD Daniel Screening Digital - 05/28/23830 Report Status:Signed EXAM: Daniel Screening Digital EXAM DATE AND TIME: 05/28/2023 8:32 AM HISTORY: Annual screening COMPARISON: 10/15/2021, 07/20/2019, 08/14/2017 TECHNIQUE: Bilateral digital breast tomosynthesis was performed in the CC and MLO projections. Computer aided detection with [employer] 3D 3.1 was employed. TISSUE DENSITY: a. The breasts are almost entirely fatty. FINDINGS: No suspicious masses, grouped microcalcifications, or areas of architectural distortion are seen. The skin and vascularity are unremarkable. IMPRESSION: Stable mammographic appearance of the breasts. No evidence of malignancy is seen. A negative mammogram in the presence of a clinically suspicious palpable abnormality does not preclude the possibility of malignancy or alter the indications for biopsy. BI-RADS: Category 1: Negative RECOMMENDATION(S): 1: Routine screening mammogram BILATERAL in 1 year. 9841F, 7060F Dictating Physician: EMILIANA DOMINIQUE MD Electronically Signed by: EMILIANA DOMINIQUE MD Dic Date/Time: 05/28/23914 Sign date/Time: 05/28/23916 Procedure Note Emiliana Dominique - 10/27/2023 [facility] Diagnostic Imaging Department [address] [place] [address] Patient: MICHAEL DAVENPORT./Age/Sex: 1960 - 63 - F Unit#: [id number] Location/Status: SPDIMA/REG CLI Mnemonic/Ordering Site: [facility] Ordering Physician: DEVANG WILLIS MD Daniel Screening Digital - 05/28/23 - 0831 Report Status:Signed EXAM: [facility] Screening Digital EXAM DATE AND TIME: 05/28/2023 8:32 AM HISTORY: Annual screening COMPARISON: 10/15/2021, 07/20/2019, 08/14/2017 TECHNIQUE: Bilateral digital breast tomosynthesis was performed in the CCand MLO projections. Computer aided detection with [employer] 3D 3.1was employed. TISSUE DENSITY: a. The [...] screening mammogram BILATERAL in 1 year. 3341F, 7050F Dictating Physician: EMILIANA DOMINIQUE MD Electronically Signed by: EMILIANA DOMINIQUE MD Dic Date/Time: 05/28/23914 Sign date/Time: 05/28/23916 Devang Willis MD IMG BI PROCEDURES Final Re sult from Last 3 Months or Most Recently Relevant to Health Maintenance Insurance [facility] MEDICARE Member Subscriber Plan / Payer (Ef fective 2023-Present) Name:MICHAEL DAVENPORT Relation to Subscriber:Self Name:Michael Davenport Payer ID:[id number] Group ID:[id number] Type:Not on file Address: [facility] [address] [id number] Care Teams Outside Installation Machinist Relationship Specialty Start Date End Date Devang Willis MD [address] [place] [address] PCP - General Internal Medicine 06/23/19
--- OUTSIDE RECORDS SUMMARY | 2025-03-22 09:20 | XMS_ITS | Encounter Summary ---
Author Organization [facility] Address [address] [place] [address] Phone Care Team Providers Care Christmas Tree Contractor Name Role Phone Haven Adorno MD Primary Care Provider +1- [phone] Encounter Details Date Type Department Care Team (Late st Contact Info) Description 07/16/2022 Documentation Only [facility] [address] [place] [address] eKturah Mccracken Social History Tobacco Use Types Packs/Day [...] on filedocumented in this encounter Care Teams Christmas Tree Contractor Relationship Specialty Start Date End Date Haven Adorno MD [address] [place], [place] PCP - General Internal Medicine 06/25/22 documented as of this encounter
[2025-03-22 09:23] VITALS: BP 130/68; PULSE 59; O2SAT 97; BMI 31.6
--- NOTE | 2025-03-22 09:23 | HO.NEPHOV ---
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 [employer] Supplies Required: No Accompanied by: Self / Same As Patient Allergies cyclobenzaprine Allergy (Intermediate, Verified 03/22/25 09:25) Itching Penicillins Allergy (Intermediate, Verified 03/22/25 09:25) Rash Sulfa (Sulfonamide Antibiotics) Allergy (Intermediate, Verified 03/22/25 09:25) Nausea and Vomiting/diarrhea sulfamethoxazole (From Bactrim) Allergy (Intermediate, Verified 03/22/25 09:25) Diarrhea/nausea & vomiting trimethoprim (From Bactrim) Allergy (Intermediate, Verified 03/22/25 09:25) Diarrhea/nausea & vomiting Medication List - Last Reconciled 03/22/25 by Dawit Blake MD albuterol sulfate 90 mcg/actuation 2 puffs inhalation Q6H PRN cholecalciferol (vitamin D3) 125 mcg PO DAILY dexlansoprazole 60 mg PO DAILY dicyclomine 10 mg PO Q6H PRN docusate sodium (Colace) 100 mg PO DAILY linaclotide (Linzess) 145 mcg PO DAILY lorazepam 0.5 mg PO BID PRN ondansetron 4 mg PO Q12H pantoprazole 40 mg PO DAILY polyethylene glycol 3350 17 grams PO DAILY sucralfate 10 mL PO BID thiamine HCl (vitamin B1) 100 mg PO DAILY zolpidem 5 mg PO BEDTIME PRN HPI Comments Details: Middle-aged woman with the history of obesity and hypertension. She continues to struggle with her weight. She was evaluated by the weight management Clinic and she needs further follow-up. She underwent abdominal ultrasonogram showed bilateral hydronephrosis more on the right. She also has renal stones. She is asymptomatic. Currently on HCTZ 12.5 mg QD 06/22/24; c/o Hip pain- on Neurontin ;uses a walker ;Gained weight 01/11/25 ;Overall doing well. Lost weight 222 in Aug 2024 - down to 187 in December 2024 03/22/25 After stopping HCTZ, Cr is better NO new issue today PFSH Medical History Sleep apnea Renal calculi HTN (hypertension) GERD (gastroesophageal reflux disease) Insomnia Anxiety Asthma BMI 38.0-38.9,adult Obesity Surgical History History of spinal surgery Hx of lithotripsy Hx of cholecystectomy Family History Mother Alzheimer disease Father Cancer Son No problems noted. Son No problems noted. Daughter No problems noted. Social History Are you a primary health care aide to a significant other at home: No Do you presently have visiting nurse or other home services: No Alcohol intake: never Patient Tobacco Use Status: Never used Tobacco Physical Exam Vital Signs: Last Vital Signs Pulse 59 03/22/25 09:23 BP 130/68 03/22/25 09:23 Pulse Ox 97 03/22/25 09:23 Oxygen Delivery Method Room Air 03/22/25 09:23 BMI result Body Mass Index 31.6 Const General: comfortable Nutritional Appearance: well nourished Orientation/consciousness: patient oriented x3 HEENT Head: No normal to inspection Mouth: moist mucous membranes Neck Neck: Yes supple and Yes no JVD Resp Auscultation: clear to auscultation bilaterally and no rales Cardio Jugular venous distension: no JVD Palpation: no palpable S3 and no palpable S4 Heart sounds: no rubs GI Palpation (GI): Soft to palpation and nontender Percussion: No Fluid wave present General: Yes no CVA tenderness Back/Spine/Pelvis Back: no CVA tenderness Skin General skin exam: no rashes or lesions noted Neuro General: patient oriented x3 Extrem General: Yes no pedal edema and No clubbing Results Reviewed Results Reviewed: Abd USG _ November 2023 RIGHT KIDNEY: At the interpolar aspect, a 3 mm nonobstructing calculus is seen. There is moderate hydronephrosis. No focal parenchymal solid lesions. At the lower pole, a 1.4 cm benign, simple cyst is seen, which require no imaging follow-up. The kidney measures 10.7 cm in maximum dimension. LEFT KIDNEY: At the upper pole, a 3 mm nonobstructing calculus is seen. There is mild hydronephrosis. No focal parenchymal lesions. The kidney measures 10.6 cm in maximum dimension. Nephrology Results: Renal US 01/26/24 Assessment & Plan Assessment & Plan (1) HTN (hypertension): Code(s): I10 - Essential (primary) hypertension Category: Medical Plan: Blood pressure acceptable Stay on HCTZ 12.5 mg QD Stay on low-sodium diet She needs weight loss No change in medications (2) Hydronephrosis: Code(s): N13.30 - Unspecified hydronephrosis Category: Medical Plan: Abdominal ultrasonogram in November showed bilateral hydronephrosis. With renal stones and simple cyst Follow-up renal ultrasound did NOT show any hydronephrosis Renal function creatinine bumped up to 1.28 from 0.86 Increase PO fluid intake and repeat Renal USG After stopping HCTZ 12.5 mg QD ( 01/11/25), creatinine has improved to 1.09 Back to baseline (3) Obesity: Code(s): E66.9 - Obesity, unspecified Category: Medical Qualifiers: Body mass index: BMI 38.0-38.9 Obesity classification: adult class 2 (BMI 35 - 39.9) Obesity type: due to excess calories Serious obesity comorbidity presence: with serious comorbidity Qualified Code(s): E66.812 - Obesity, class 2; E66.01 - Morbid (severe) obesity due to excess calories; Z68.38 - Body mass index [BMI] 38.0-38.9, adult Plan: Continue to loose weight with diet and follow up with weight management (4) Nephrolithiasis: Code(s): N20.0 - Calculus of kidney Category: Medical Plan: 24 hr urine shows volume of 1325 Oxalate mildly elevated at 40 Needs to stay on low Oxalate diet - Avoid strawberries, nuts, etc; Discussed with Alexandra Increase PO fluid intake to maintain urine output of 2 L Low salt diet Orders: Orders Basic Metabolic Panel 4 Months N17.9 - Acute kidney failure, unspecified Complete Blood Count no Diff 4 Months N17.9 - Acute kidney failure, unspecified Coding Level of Care Code Est Pt Level 4 (03743) Diagnoses HTN (hypertension) I10 Hydronephrosis N13.30 Class 2 severe obesity due to excess calories with serious comorbidity and body mass index (BMI) of 38.0 to 38.9 in adult E66.812; E66.01; Z68.38 Body mass index: BMI 38.0-38.9 Obesity classification: adult class 2 (BMI 35 - 39.9) Obesity type: due to excess calories Serious obesity comorbidity presence: with serious comorbidity Nephrolithiasis N20.0
== END 2025-03-22 09:36 | disposition home or self-care (01) ==
LOC: HO.HKAS 09:11
PROVIDERS: PCP Internal Medicine; Visit Provider Internal Medicine Hypertension Specialist
DX: I10 Essential (primary) hypertension (principal); N13.30 Unspecified hydronephrosis; E66.812 Obesity, class 2; E66.01 Morbid (severe) obesity due to excess calories; Z68.38 Body mass index [BMI] 38.0-38.9, adult; N20.0 Calculus of kidney
CPT/HCPCS: 99214

== ENCOUNTER → 2025-03-22 09:10 | Outpatient (BNVA) | payer OTHER, SELFPAY | PROVIDERS: PCP Internal Medicine; Visit Provider Internal Medicine Hypertension Specialist | DX: I10 Essential (primary) hypertension (principal); N13.30 Unspecified hydronephrosis; E66.812 Obesity, class 2; E66.01 Morbid (severe) obesity due to excess calories; N20.0 Calculus of kidney; Z68.31 Body mass index [BMI] 31.0-31.9, adult | CPT/HCPCS: 99212 ==

== ENCOUNTER 2025-07-25 10:07 | Emergency (ER) | payer OTHER, SELFPAY ==
--- OUTSIDE RECORDS SUMMARY | 2025-07-22 22:59 | XMS_ITS | Continuity of Care Document ---
Author Organization [facility] Address [address] [place] [address]- Care Team Providers Care Hog Scraper Name Role Phone Robles Sanchez MD Primary Care Physic dariana Encounter [facility] ACCT R [id number] Date(s): 06/22/25 - 07/22/25 [facility] [address] [place], [place] [address] Attending Physician: Stef Weiner Admitting Physician: Stef Weiner Referring Physician: AdmtrStef Encounter Type: Triage Allergies, Adverse Reactions, Alerts Substance Criticality Severity Reaction Reaction Severity Status codeine n/v Active penicillin rash Active Bactrim nausea Active Vicodin n/v Active Percocet 5/325 n/v Activ e Morphine Sulfate n/v Act deon traMADOL n/v Active Immunizations Given and Recorded Vaccine Date Status Refusal Reason tetanus/diphtheria/pertussis, acel(Tdap) 04/12/22 Recorded SARS-CoV-2 (COVID-19) mRNA BNT-162b2 vac 02/05/21 Recorded SARS-CoV-2 (COVID-19) mRNA BNT-162b2 vac 01/15/21 Recorded Medications acetaminophen/butalbital/caffeine 325 mg-50 mg-40 mg oral tablet 2 tablet, By Mouth, 3 times a day, PRN as needed, # 30 tablet, 0 Refills, Maintenance, 01/17/25 4:10:00 PM EDT, Tablet, [id number], Partial fill upon patient request if the prescription is fora schedule II opioid drug., 2 tablet By Mouth 3 times a day,PRN:as needed, 160, cm, 12/14/24 13:36:00 EDT, Height, 89, kg, 11/21/24 8:42:00 EST, Dry Weight Start Date: 01/17/25 Status: Ordered Medication Dispense Status: Completed Quantity: 30.0 Unit: tablet Total Allowed Fills: 1 Fills Dispensed: 0 albuterol-ipratropium 3 mg-0.5 mg/3 ml inhalation solution 3 mL, Inhalation, 4 times a day, j44.9, # 360 mL, 6 Refills, Maintenance, 02/16/24 11:41:00 AM EDT, Solution, [id number], Partial fill upon patient request if the prescription is for a schedule II opioid drug., 3 mL Inhalation 4 times a day,Instr:j44.9, 161.5, cm, 02/16/24 9:42:00 EDT, Height, 104, kg, 10/01/23 11:09:00 EST, Dry Weight Start Date: 02/16/24 Status: Ordered Medication Dispense Status: Completed Quantity: 360.0 Unit: mL Total Allowed Fills: 7 Fills Dispensed: 0 Clobetasol (Eqv-Temovate) 0.05% topical cream PRN Rash, 0 Refills, Maintenance, 09/07/24 9:23:00 AM EST, Partial fill upon patient request if theprescription is for a schedule II opioid drug. Start Date: 09/07/24 Status: Ordered Medication Dispense Status: Completed Total Allowed Fills: 1 Fills Dispensed: 0 Estrace Vaginal Cream 0.1 mg/g See Instructions, 1 gram Vaginally at bedtime twice per week, # 42 Gm, 4 Refills, Maintenance, 04/25/25 10:09:00 AM EDT, [facility] #[id number], Partial fill upon patient request if the prescription is fora schedule II opioid drug., 160, cm, 04/25/25 9:05:00 EDT, Height, 80.73, kg, 03/16/25 8:57:00 EDT,Dry Weight Start Date: 04/25/25 Status: Ordered Medication Dispense Status: Completed Quantity: 42.0 Unit: g Total Allowed Fills: 5 Fills Dispensed: 0 hydrochlorothiazide 12.5 mg oral tablet 1 tablet = 12.5 mg, By Mouth, Daily in AM, # 30 tablet, 0 Refills, Maintenance, 11/16/23 9:07:00 AM EST, Tablet, Partial fill upon patient request if the prescription is for a schedule II opioid drug. Start Date: 11/16/23 Status: Ordered Medication Dispense Status: Completed Quantity: 30.0 Unit: tablet Total Allowed Fills: 1 Fills Dispensed: 0 LORazepam 0.5 mg oral tablet TAKE 1 TABLET BY MOUTH TWICE A DAY Start Date: 02/04/19 Status: Ordered Medication Dispense Status: Completed Total Allowed Fills: 1 Fills Dispensed: 0 Lyrica 50 mg oral capsule See Instructions, Take 1 cap mg PO q day x 2 days, then increase to 1 cap BID x 2 days, then increase to 1 cap TID, # 90 capsule, 0 Refills, Maintenance, 06/22/25 10:03:00 AM EDT, [facility] #[id number], Partial fill upon patient request if the prescription is for a schedule II opioid drug., 160, cm, 06/16/25 8:44:00 EDT, Height, 86.5, kg, 06/12/25 13:07:00 EDT, Dry Weight Start Date: 06/22/25 Status: Ordered Medication Dispense Status: Completed Quantity: 90.0 Unit: capsule Total Allowed Fills: 1 Fills Dispensed: 0 pantoprazole 40 mg oral delayed release tablet 1 tablet = 40 mg, By Mouth, Daily, for 90 days, # 90 tablet, 2 Refills, Hard Stop 09/18/25 12:50:00PM EST, 12/22/24 12:50:00 PM EDT, 160, cm, 12/14/24 13:36:00 EDT, Height, 89, kg, 11/21/24 8:42:00 EST, Dry Weight Start Date: 12/22/24 Stop Date: 09/18/25 Status: Ordered Medication Dispense Status: Completed Quantity: 90.0 Unit: tablet Total Allowed Fills: 3 Fills Dispensed: 0 pantoprazole 40 mg oral delayed release tablet 1 tablet = 40 mg, By Mouth, Daily, # 90 tablet, 2 Refills, Maintenance, 09/18/25 12:50:00 PM EST, 160, cm, 06/16/25 8:44:00 EDT, Height, 86.5, kg, 06/12/25 13:07:00 EDT, Dry Weight Start Date: 09/18/25 Stop Date: 06/15/26 Status: Ordered Medication Dispense Status: Completed Quantity: 90.0 Unit: tablet Total Allowed Fills: 3 Fills Dispensed: 0 trospium chloride 20 mg oral tablet 1 tablet = 20 mg, By Mouth, 2 times a day, # 60 tablet, 11 Refills, Maintenance, 04/25/25 10:09:00 AMEDT, Tablet, [facility] #[id number], Partial fill upon patient request if the prescription is for a schedule II opioid drug., 160, cm, 04/25/25 9:05:00 EDT, Height, 80.73, kg, 03/16/25 8:57:00 EDT, Dry Weight Start Date: 04/25/25 Status: Ordered Medication Dispense Status: Completed Quantity: 60.0 Unit: tablet Total Allowed Fills: 12 Fills Dispensed: 0 Tylenol 8 Hour 650 mg oral tablet, extended release 2 tablet = 1,300 mg, By Mouth, Every 8 hours, 0 Refills, Maintenance, 06/16/25 8:42:00 AM EDT, Partial fill upon patient request if the prescription is for a schedule II opioid drug. Start Date: 06/16/25 Status: Ordered Medication Dispense Status: Completed Total Allowed Fills: 1 Fills Dispensed: 0 zolpidem 10 mg oral tablet TAKE 1 TABLET BY MOUTH EVERY DAY AT BEDTIME NEEDED Start Date: 06/12/25 Status: Ordered Medication Dispense Status: Completed Total Allowed Fills: 1 Fills Dispensed: 0 Problem List Condition Confirmation Course Effective Dates Status H ealth Status Informant Abdominal pain Confirmed Active Anxiety Confirmed Active Anxiety Confirmed Active Asthma Confirmed Active Back pain Confirmed Active Bipolar disorder Confirmed Active Chronic back pain Confirmed Active Depression Confirmed Active Dizziness Confirmed Active Swallowing difficulty Confirmed Active Epigastric pain Confirmed Active Fibromyositis Confirmed Active Esophageal reflux Confirmed Active GERD (gastroesophageal reflux disease) Confirmed Active H/O psoriasis Confirmed Active Bilateral hand pain Confirmed Active Intractable headache Confirmed Active Hip pain Confirmed Active Hypertension Confirmed Active Hypoventilation Confirmed Active Fecal incontinence Confirmed Active Urinary frequency Confirmed Active IBS (irritable bowel syndrome) Confirmed Active Labile blood pressure Confirmed Active Migraine Confirmed Active Obese class I Confirmed Active Obesity Confirmed Active DOC (obstructive sleep apnea) Confirmed Active Osteoarthritis Confirmed Active Osteopenia Confirmed Active Calf pain Confirmed Active Routine medical exam Confirmed Active Routine check-up Confirmed Active PLMD (periodic limb movement disorder) Confirmed Active Psoriasis Confirmed Active RLQ abdominal pain Confirmed Active Lumbar spinal stenosis Confirmed Active Elbow tendinitis Confirmed Active Thigh pain Confirmed Active Tubular adenoma of colon Confirmed Active Urinary incontinence Confirmed Active Vitamin D deficiency Confirmed Active Social History Social History Type Response Smoking Status Former smoker; Tobac co user in household: No; Other: pt quit smoking in 2004; entered on: 12/20/14 Sexual Orientation Self described orien tation: ; Straight or heterosexual Sex Sex Representation Female (finding) Procedure * Event Display: Cardiology Office Note, Non-BH Authored Date: * Event Display: Non BH Cardiovascular Results Authored Date: * Event Display: Non BH Cardiovascular Results Authored Date: Laboratory * Event Display: Non-BH Pathology Lab Results Authored Date: * Event Display: Laboratory Result Scanned Authored Date: * Event Display: Non BH Lab Results Authored Date: * Event Display: Non BH Lab Results Authored Date: * Event Display: Non BH Lab Results Authored Date: Imaging * Event Display: CT Scan Abdomen, Non- BH Authored Date: * Event Display: X-Ray Chest, Non- BH Authored Date: * Event Display: IR Special Procedures, Non-BH Authored Date: * Event Display: Ultrasound Abdomen, Non-BH Authored Date: * Event Display: X-Ray Chest, Non- BH Authored Date: * Event Display: Ultrasound Renal, Non BH Authored Date: * Event Display: Ultrasound Renal, Non BH Authored Date: * Event Display: X-Ray Chest, Non- BH Authored Date: * Event Display: X-Ray Chest, Non- BH Authored Date: * Event Display: Ultrasound Abdomen, Non-BH Authored Date: * Event Display: Ultrasound Abdomen, Non-BH Authored Date: * Event Display: MRI Hand/Wrist, Non- BH Authored Date: * Event Display: CT Scan Head, Non- BH Authored Date: * Event Display: IR Special Procedures, Non-BH Authored Date: * Event Display: IR Special Procedures, Non-BH Authored Date: * Event Display: Ultrasound Neck, Non-BH Authored Date: * Event Display: CT Scan Abdomen, Non- BH Authored Date: * Event Display: CT Scan Abdomen, Non- BH Authored Date: * Event Display: Bone Density, Non-BH Authored Date: * Event Display: Bone Density, Non-BH Authored Date: * Event Display: X-Ray Hip/Groin, Non- BH Authored Date: MG Breast Views * Event Display: MM Mammogram Authored Date: * Event Display: MM Mammogram Authored Date: * Event Display: MM Mammogram Authored Date: * Event Display: MM Mammogram, Non- BH Authored Date: * Event Display: MM Mammogram, Non- BH Authored Date: * Event Display: MM Mammogram, Non- BH Authored Date: MR Brain * Event Display: MRI Head Authored Date: Patient Care team information Care Team Personnel Name: Ruth Martin RN Position: [facility] RN Member Role: Primary Care Nurse Name: Myrna Machuca RN Position: [facility] RN Member Role: Primary Care Nurse Name: Amaya Linares RN [facility] Nurse Member Role: Primary Care Nurse Name: Delaney Galeana MD Position: [facility] CONTINUING EDUCATION INSTRUCTOR MD Member Role: Lifetime Consulting Physician Address: [address], [address] [facility] [place] [address]- Telecom: Name: Choco Reeder Position: [facility] RN Member Role: Primary Care Nurse Name: Robles Sanchez MD Position: [facility] Physician - Primary Care Member Role: PCP Address: [address] [address]- Telecom: Name: Tuan Franklin RN Position: [facility] RN Member Role: Primary Care Nurse Care Team Related Persons Name: NOHELIA ROSALES Name: CYRUS ROSALES Name: MILKA ROGERS Insurance Providers Guarantor name: MICHAEL DAVENPORT [employer] Plan Information #: 1 Payer: [facility] [employer] Payer Identifier: NA Member Number: [id number] Group Number: [id number] Subscriber Identifier: NA Relationship to Subscriber: self Coverage Type: Medicare Managed Care (Includes Medicare Advantage Plans) Coverage Verification Date: NA Telecom: NA Address: NA
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
[2025-07-25 10:18] VITALS: BP 132/81; PULSE 85; RESP 20; TEMP 36.4; O2SAT 98; BMI 34.0
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
[2025-07-25] MEDS: Lidocaine 4 % Patch ADH..PATCH 1 PATCH TRANSDERMA (11:28)
[2025-07-25 12:06] VITALS: BP 132/81; PULSE 85; RESP 20; TEMP 36.4; O2SAT 98
--- OUTSIDE RECORDS SUMMARY | 2025-07-25 13:54 | XMS_ITS | Clinical Summary ---
Author Organization [facility] Address [address] [address] Care Team Providers Care Aerosol Line Operator Name Role Phone Haven Adorno MD Primary Care Provider +1- [phone] Allergies Active Allergy Reactions Criticality Noted Date [...] at night if needed 9 Active Multiple Vitamins-[place] als (MULTIVITAMIN ADULT EXTRA C PO) Take [...] Cancer Screening: Sigmoidoscopy 2007 Influenza Vaccine (#1) 2025 Hepatitis B Vaccine Aged Out No longe r eligible based on patient's age to complete this topic Insurance [employer] Dual SNP ([id number]) [place] [id number] [employer] Dual SNP ([id number]) Care Teams Aerosol Line Operator Relationship Specialty Start Date End Date Haven Adorno MD [address] [place], [place] PCP - General Internal Medicine 06/25/22
--- OUTSIDE RECORDS SUMMARY | 2025-07-25 13:54 | XMS_ITS | Encounter Summary ---
Author Organization [facility] Address [address] [place] [address] Phone Care Team Providers Care Primer Assembler Name Role Phone Haven Adorno MD Primary Care Provider +1- [phone] Encounter Details Date Type Department Care Team (Late st Contact Info) Description 07/16/2022 Documentation Only [facility] [address] [place] [address] Keturah Mccracken Social History Tobacco [...] on filedocumented in this encounter Care Teams Primer Assembler Relationship Specialty Start Date End Date Haven Adorno MD [address] [place], [place] PCP - General Internal Medicine 06/25/22 documented as of this encounter
== END 2025-07-25 12:06 | disposition home or self-care (01) ==
PROVIDERS: Emergency Provider Emergency Medicine
DX: S13.4XXA Sprain of ligaments of cervical spine, initial encounter (principal); V43.62XA Car passenger injured in collision with other type car in traffic accident, initial encounter; Y92.410 Unspecified street and highway as the place of occurrence of the external cause; Y93.89 Activity, other specified; Y99.8 Other external cause status
CPT/HCPCS: 72125; 99282; 99284

== ENCOUNTER → 2025-07-25 10:21 | Outpatient (BNV) | payer OTHER, SELFPAY | PROVIDERS: Emergency Provider Emergency Medicine; Visit Provider Radiology Diagnostic Radiology | DX: M54.2 Cervicalgia (principal); V89.2XXA Person injured in unspecified motor-vehicle accident, traffic, initial encounter | CPT/HCPCS: 72125 ==

== ENCOUNTER 2025-08-09 08:48 | Outpatient (AMB) | payer OTHER, SELFPAY ==
[2025-08-09 08:55] VITALS: BP 120/70; PULSE 76; O2SAT 97; BMI 33.8
--- NOTE | 2025-08-09 08:55 | HO.NEPHOV_ITS ---
Vital Signs 08/09/25 08:55 Height 5 ft 4 in Weight 197 lb BMI 33.8 BP 120/70 Blood Pressure Location Lt brachial Position Sitting Pulse 76 Pulse Source Pulse Oximeter Pulse Oximetry (%) 97 Oxygen Delivery Method Room Air Intake Visit Reasons: 4mon follow-up w/labs Allergies cyclobenzaprine Allergy (Intermediate, Verified 08/09/25 08:58) Itching Penicillins Allergy (Intermediate, Verified 08/09/25 08:58) Rash Sulfa (Sulfonamide Antibiotics) Allergy (Intermediate, Verified 08/09/25 08:58) Nausea and Vomiting/diarrhea sulfamethoxazole (From Bactrim) Allergy (Intermediate, Verified 08/09/25 08:58) Diarrhea/nausea & vomiting trimethoprim (From Bactrim) Allergy (Intermediate, Verified 08/09/25 08:58) Diarrhea/nausea & vomiting Medication List - Last Reconciled 08/09/25 by Dawit Blake MD albuterol sulfate 90 mcg/actuation 2 puffs inhalation Q6H PRN cholecalciferol (vitamin D3) 125 mcg PO DAILY dexlansoprazole 60 mg PO DAILY dicyclomine 10 mg PO Q6H PRN docusate sodium (Colace) 100 mg PO DAILY lidocaine 5% leave on most painful area for up to 12 hrs linaclotide (Linzess) 145 mcg PO DAILY lorazepam 0.5 mg PO BID PRN methocarbamol 1,000 mg PO TID PRN ondansetron 4 mg PO Q12H pantoprazole 40 mg PO DAILY polyethylene glycol 3350 17 grams PO DAILY pregabalin 50 mg PO TID sucralfate 10 mL PO BID thiamine HCl (vitamin B1) 100 mg PO DAILY zolpidem 5 mg PO BEDTIME PRN HPI Comments Details: Middle-aged woman with the history of obesity and hypertension. She continues to struggle with her weight. She was evaluated by the weight management Clinic and she needs further follow- up. She underwent abdominal ultrasonogram showed bilateral hydronephrosis more on the right. She also has renal stones. She is asymptomatic. Currently on HCTZ 12.5 mg QD 06/22/24; c/o Hip pain- on Neurontin ;uses a walker ;Gained weight 01/11/25 ;Overall doing well. Lost weight 222 in Aug 2024 - down to 187 in December 2024 08/09/25 The patient is a 65-year-old female presenting for management of HTN,Nephrolithiasis and h/o JOEL. The patient has a history of hypertension and was previously on hydrochlorothiazide 12.5 mg, which was discontinued in March as her blood pressure was well-controlled. She self-restarted the medication two weeks ago after her blood pressure increased to 185, and she is now taking it daily. The patient has experienced a weight gain from 184 to 197 pounds. She reports being unable to walk due to pain, which she feels is contributing to her weight gain and depression. For neuropathy, the patient is taking pregabalin, which provides only minimal relief. She has a follow-up appointment with another provider tomorrow to discuss this medication. She also mentions a history of sciatica. The patient reports adequate hydration, stating she only drinks water. Her kidney function is noted to be good. [facility] Medical History Sleep apnea Renal calculi HTN (hypertension) GERD (gastroesophageal reflux disease) Insomnia Anxiety Asthma BMI 38.0-38.9,adult Obesity Surgical History History of spinal surgery Hx of lithotripsy Hx of cholecystectomy Family History Mother Alzheimer disease Father Cancer Son No problems noted. Son No problems noted. Daughter No problems noted. Social History Are you a primary family day care worker to a significant other at home: No Do you presently have visiting nurse or other home services: No Alcohol intake: never Patient Tobacco Use Status: Never used Tobacco Physical Exam Vital Signs: BMI result Body Mass Index 33.8 Const General: comfortable Nutritional Appearance: well nourished Orientation/consciousness: patient oriented x3 HEENT Head: No normal to inspection Mouth: moist mucous membranes Neck Neck: Yes supple and Yes no JVD Resp Auscultation: clear to auscultation bilaterally and no rales Cardio Jugular venous distension: no JVD Palpation: no palpable S3 and no palpable S4 Heart sounds: no rubs GI Palpation (GI): Soft to palpation and nontender Percussion: No Fluid wave present General: Yes no CVA tenderness Back/Spine/Pelvis Back: no CVA tenderness Skin General skin exam: no rashes or lesions noted Neuro General: patient oriented x3 Extrem General: Yes no pedal edema and No clubbing Results Reviewed Results Reviewed: 08/02/25 BUN 26 Cr 0.93 Nephrology Results: Renal US 01/26/24 Assessment & Plan Assessment & Plan (1) HTN (hypertension): Code(s): I10 - Essential (primary) hypertension Category: Medical Plan: Blood pressure acceptable Currently on HCTZ 12.5 mg QD ! Stay on low-sodium diet She needs weight loss No change in medications (2) Hydronephrosis: Code(s): N13.30 - Unspecified hydronephrosis Category: Medical Plan: Abdominal ultrasonogram in November showed bilateral hydronephrosis. With renal stones and simple cyst Follow-up renal ultrasound did NOT show any hydronephrosis (3) Obesity: Code(s): E66.9 - Obesity, unspecified Category: Medical Qualifiers: Obesity type: due to excess calories Obesity classification: adult class 2 (BMI 35 - 39.9) Serious obesity comorbidity presence: with serious comorbidity Body mass index: BMI 38.0-38.9 Qualified Code(s): E66.812 - Obe sity, class 2; E66.01 - Morbid (severe) obesity due to excess calories; Z68.38 - Body mass index [BMI] 38.0-38.9, adult Plan: Continue to loose weight with diet and follow up with weight management (4) Nephrolithiasis: Code(s): N20.0 - Calculus of kidney Category: Medical Plan: 24 hr urine shows volume of 1325 Oxalate mildly elevated at 40 Needs to stay on low Oxalate diet - Avoid strawberries, nuts, etc; Discussed with Alexandra Increase PO fluid intake to maintain urine output of 2 L Low salt diet Orders: Orders UA and rflx microscopic 6 Months I10 - Essential (primary) hypertension, N13.30 - Unspecified hydronephrosis Basic Metabolic Panel 6 Months I10 - Essential (primary) hypertension, N13.30 - Unspecified hydronephrosis Coding Level of Care Code Est Pt Level 4 (66421) Diagnoses HTN (hypertension) I10 Hydronephrosis N13.30 Class 2 severe obesity due to excess calories with serious comorbidity and body mass index (BMI) of 38.0 to 38.9 in adult E66.812; E66.01; Z68.38 Obesity type: due to excess calories Obesity classification: adult class 2 (BMI 35 - 39.9) Serious obesity comorbidity presence: with serious comorbidity Body mass index: BMI 38.0-38.9 Nephrolithiasis N20.0
--- OUTSIDE RECORDS SUMMARY | 2025-08-09 16:27 | XMS_ITS | Encounter Summary ---
Author Organization [facility] Address [address] [place] [address] Phone Care Team Providers Care Child Psychiatrist Name Role Phone Haven Adorno MD Primary Care Provider +1- [phone] Encounter Details Date Type Department Care Team (Late st Contact Info) Description 07/16/2022 Documentation Only [facility] [address] [place] [address] Keturah Mccracken Social History Tobacco [...] on filedocumented in this encounter Care Teams Child Psychiatrist Relationship Specialty Start Date End Date Haven Adorno MD [address] [place], [place] PCP - General Internal Medicine 06/25/22 documented as of this encounter
--- OUTSIDE RECORDS SUMMARY | 2025-08-09 16:27 | XMS_ITS | Clinical Summary ---
Author Organization [facility] Facility Address [address] [address] Care Team Providers Care Keg Inspector Name Role Phone Haven Adorno MD Primary Care Provider [phone] Allergies Active Allergy Reactions Criticality Noted Date [...] at night if needed 9 Active Multiple Vitamins-Supplier Quality Engineer als (MULTIVITAMIN ADULT EXTRA C PO) Take [...] One Care Dual SNP (A2793) PRISCILA LYNN [id number] One Care Dual SNP (A2793) Care Teams Keg Inspector Relationship Specialty Start Date End Date Haven Adorno MD [address], [place] PCP - General Internal Medicine 06/25/22
--- OUTSIDE RECORDS SUMMARY | 2025-08-09 16:27 | XMS_ITS | Clinical Summary ---
Author Organization 299 [facility] Address [address] [place] [address] Phone Care Team Providers Care Transmissions Systems Operator Name Role Phone Robles Buchanan MD Primary Care Provider [phone] Allergies Active Allergy Reactions Criticality Noted Date Comments Sulfamethoxazole-Trimet hoprim Nausea And Vomiting 05/22/2025 Morphine Nausea And Vomiting 04/14/2025 Penicillins Other 04/14/2025 Bumps in my body Oxycodone-Acetaminophen Nausea And Vomiting Tramadol Nausea And Vomiting 04/14/2025 Encounters Date Type Department Care Team Description 08/02/2025 8:15 AM EST Lab Draw Station - [address] [id number] Acute kidney failure, unspecified (CMS/HCC V24) (Primary Dx) 05/22/2025 7:58 AM EDT - 05/22/2025 10:29 AM EDT Emergency [facility] Emergency [address] [place] [id number] Roopa Farias MD Pyelonephritis (Primary Dx) Discharge Disposition: Home or Self Care from [...] Sexual Orientation Not on file Obstetrics History Last Filed Vital Signs Vital Sign Reading Time Taken Comments Blood Pressure 147/69 05/22/2025 10:25 AM EDT Pulse 60 05/22/2025 10:25 AM EDT Temperature 36.9 C (98.4 F) 05/22/2025 7:56 AM EDT Respiratory Rate 18 05/22/2025 10:25 AM EDT Oxygen Saturation 100% 05/22/2025 10:25 AM EDT Inhaled Oxygen Concentration - - Weight 83.9 kg (185 lb) 05/22/2025 7:51 AM EDT Height 162.6 cm (5' 4 ) 05/22/2025 7:51 AM EDT Body Mass Index 31.76 05/22/2025 7:51 AM EDT Plan of Treatment Health Maintenance Due Date Last Done Comments Colorectal Cancer Screening: Colonoscopy 1960 Pneumococcal Vaccine: 50+ Years (1 of 2 - PCV) 1977 RSV Immunization Adult Patients (1 - Risk 50-74 years 1-dose series) 2008 Zoster Vaccines (1 of 2) 2008 Cholesterol Screening (Lipid Panel) 09/03/2022 Hepatitis C Screening 09/03/2022 Medicare Annual Wellness Visit 09/03/2022 Osteoporosis Screening (Bone Density Screening) 09/03/2022 Social Influencers of Health Screening 09/03/2022 Falls Risk Assessment 2023 Depression Screening 09/21/2024 COVID-19 Vaccine ( - season) 2025 02/05/2021, 01/15/2021 Influenza Vaccine (#1) 2025 Breast Cancer Screening 05/28/2025 05/28/20, 10/15/2021, 07/20/2019 Hypertension/CHF/CAD Annual BMP Blood Test 08/02/2026 08/02/2025, 05/22/2025, 04/14/2025, Additional history exists DTaP,Tdap,and Td Vaccines (2 - Td or [...] 20 months Aged Out No longer eligible based on patient's age to complete this topic Varicella Vaccines Aged Out No longer eligible based on patient's age to complete this topic Procedures Procedure Name Priority Date/Time Associated Diagnosis Comments COMPLETE BLOOD COUNT Routine 08/02/2025 8:13 AM EST Acute kidney failure, unspecified ([facility] V24) BASIC METABOLIC PANEL Routine 08/02/2025 8:13 AM EST Acute kidney failure, unspecified ([facility] V24) CT ABDOMEN PELVIS WO CONTRAST STAT 05/22/2025 8:59 AM EDT CBC WITH AUTO DIFFERENTIAL STAT 05/22/2025 8:22 AM EDT LIPASE STAT 05/22/2025 8:22 AM EDT COMPREHENSIVE METABOLIC PANEL STAT 05/22/2025 8:22 AM EDT CBC AND DIFFERENTIAL STAT 05/22/2025 8:22 AM EDT SCOTT URINE CULTURE TUBE STAT 05/22/2025 8:19 AM EDT URINALYSIS WITH REFLEX MICROSCOPIC AND CULTURE STAT 05/22/2025 8:19 AM EDT URINALYSIS WITH REFLEX MICROSCOPIC AND CULTURE STAT 05/22/2025 8:19 AM EDT CULTURE URINE STAT 05/22/2025 8:19 AM EDT ABBEY SCREENING DIGITAL Routine 05/28/2023 9:17 AM EDT Encounter for screening mammogram for malignant neoplasm of breast from Last 3 Months or Most Recently Relevant to Health Maintenance Results * (ABNORMAL) Complete blood count (08/02/2025 8:13 AM EST) [facility] Signature WBC 4.9 4.8 - 10.8 K/mcL LAB HEMETOLOGY METHOD 08/02/2025 9:25 AM [facility] RBC 5.00(H) 3.80 - 4.80 M/mcL LAB HEMETOLOGY METHOD 08/02/2025 9:25 AM [facility] Hemoglobin 13.3 11.5 - 16.0 g/dL LAB HEMETOLOGY METHOD 08/02/2025 9:25 AM [facility] Hematocrit 42.1 35.0 - 47.0 % LAB HEMETOLOGY METHOD 08/02/2025 9:25 AM [facility] MCV 85.1 79.0 - 98.0 FL LAB HEMETOLOGY METHOD 08/02/2025 9:25 AM [facility] MCH 26.9(L) 27.0 - 32.0 pcg LAB HEMETOLOGY METHOD 08/02/2025 9:25 AM [facility] MCHC 31.6(L) 32.0 - 37.0 g/dL LAB HEMETOLOGY METHOD 08/02/2025 9:25 AM [facility] RDW 14.8 11.0 - 15.0 % LAB HEMETOLOGY METHOD 08/02/2025 9:25 AM [facility] Platelets 205 130 - 400 K/mcL LAB HEMETOLOGY METHOD 08/02/2025 9:25 AM [facility] MPV 11.8(H) 7.0 - 11.0 FL LAB HEMETOLOGY METHOD 08/02/2025 9:25 AM [facility] NRBC 0.0 <1.0 % LAB HEMETOLOGY METHOD 08/02/2025 9:25 AM [facility] NRBC Absolute 0.00 <0.10 K/mcL LAB HEMETOLOGY METHOD 08/02/2025 9:25 AM [facility] Blood Venous blood specimen / Unknown Venipuncture / Unknown 08/02/2025 8:13 AM EST 08/02/2025 9:14 AM EST Dawit Blake MD LAB BLOOD ORDERABL ES Final Result [facility] [address] [place] [address], [place] [phone] * (ABNORMAL) Basic metabolic panel (08/02/2025 8:13 AM EST) Sodium 140 133 - 145 mmol/L LAB CHEMISTRY METHOD 08/02/2025 9:51 AM [facility] Potassium 4.1 3.5 - 5.5 mmol/L LAB CHEMISTRY METHOD 08/02/2025 9:51 AM [facility] Chloride 106 96 - 110 mmol/L LAB CHEMISTRY METHOD 08/02/2025 9:51 AM [facility] CO2 30 21 - 32 mmol/L LAB CHEMISTRY METHOD 08/02/2025 9:51 AM [facility] Anion Gap 4 3 - 11 LAB CHEMISTRY METHOD 08/02/2025 9:51 AM [facility] Glucose 77 70 - 100 mg/dL LAB CHEMISTRY METHOD 08/02/2025 9:51 AM [facility] BUN 26(H) 5 - 25 mg/dL LAB CHEMISTRY METHOD 08/02/2025 9:51 AM [facility] Creatinine 0.93 0.50 - 1.10 mg/dL LAB CHEMISTRY METHOD 08/02/2025 9:51 AM [facility] eGFR 68 >=60 mL/min/1. 73m2 LAB CHEMISTRY METHOD 08/02/2025 9:51 AM EST [facility] Comment:Calculation based on the Chronic Kidney Disease Epidemiology Collaboration (CKD-EPI) equation refit without adjustment for race. BUN/Creatinine Ratio 28.0 LAB CHEMISTRY METHOD 08/02/2025 9:51 AM EST [facility] Calcium 9.1 8.5 - 10.5 mg/dL LAB CHEMISTRY METHOD 08/02/2025 9:51 AM EST [facility] Blood Venous blood specimen / Unknown Venipuncture / Unknown 08/02/2025 8:13 AM EST 08/02/2025 9:05 AM EST Dawit Blake MD LAB BLOOD ORDERABL ES Final Result [facility] [address] [place] [address], [place] [phone] * CT Abdomen Pelvis wo Contrast (05/22/2025 8:59 AM EDT) Anatomical Region Laterality Modality Body Computed Tomogra phy 05/22/2025 9:49 AM EDT Impressions 05/22/2025 10:01 AM EDT Multiple cysts in the central aspect of each kidney. These parapelvic cysts make assessment for dilation of the collecting system difficult but there is no significant change. There is no ureteral dilation or definite ureteral calculus. Multiple bilateral renal calculi again demonstrated. Large amount of fecal residue distending the proximal colon and semisolid material within the most distal small bowel. -------- FINAL REPORT -------- Dictated By: Taurus Bryan Dictated Date: 05/22/2025 09:49 ET Assigned Physician: Taurus Bryan Reviewed and Electronically Signed By: Taurus Bryan Signed Date: 05/22/2025 10:01 ET Workstation ID: [id number] Transcribed By: Self Edit Transcribed Date: 05/22/2025 09:49 ET Narrative 05/22/2025 10:01 AM EDT EXAMINATION: CT ABDOMEN/PELVIS WITHOUT IV CONTRAST CLINICAL INFORMATION: Flank pain. Urinary calculus suspected. Right-sided symptoms. COMPARISON: Portions of a previous study performed with IV contrast 05/08/16 TECHNIQUE: Multidetector CT. Helical examination of the abdomen and pelvis. Imaging performed without IV contrast. Reformatting in the coronal and sagittal planes. DLP: 1118 mGy-cm Dose optimization was performed including the use of low-dose iterative reconstruction technique with automatic exposure control based on patient size. Type of contrast: None Volume of IV contrast: None Volume of contrast discarded: 0 mL FINDINGS: LIVER: Liver contour is smooth. No suspicious focal liver lesion. No additional liver findings. BILIARY TRACT: The gallbladder is not demonstrated and may be surgically absent. There is no opaque duct calculus. SPLEEN: Normal size. No focal lesion. PANCREAS: No suspicious abnormality. ADRENAL GLANDS: No suspicious abnormality. KIDNEYS: There are multiple fluid attenuating structures in the central aspect of each kidney. This appears similar to previous. Most of this is related to parapelvic cysts. The most proximal ureter is not dilated. There are at least 2 right renal calculi. There are at least 4 small left renal calculi. There are some small low attenuating cortical lesions which are too small to characterize. Statistically these represent cysts. The largest renal calculus in the mid right kidney measures approximately 0.4 cm and is 11.8 cm from the skin. There is no ureteral dilation or definite ureteral calculus. URINARY BLADDER: The bladder is nearly empty. No suspicious abnormality. PELVIC VISCERA: No suspicious abnormality. GASTROINTESTINAL TRACT: Large amount of fecal residue in the colon including the cecum which is distended. There is no CT evidence of acute appendicitis. There is semisolid material in the most distal small bowel which can be seen with stasis. No suspicious abnormality of the stomach. ABDOMINAL WALL: No significant hernia is appreciated. LYMPHOVASCULAR STRUCTURES AND FLUID: There is no abdominal aortic aneurysm. There are no enlarged lymph nodes. There is no free intraperitoneal fluid. VISUALIZED LOWER CHEST: No suspicious abnormality. Minor nonspecific lung base opacities. MUSCULOSKELETAL: No acute or suspicious osseous abnormality. There are extensive degenerative changes in the visualized spine. There is severe osteoarthritis around the left hip. Procedure Note Taurus Bryan MD - 05/22/2025 EXAMINATION: CT ABDOMEN/PELVIS WITHOUT IV CONTRAST CLINICAL INFORMATION: Flank pain. Urinary calculus suspected. Right-sided symptoms. COMPARISON: Portions of a previous study performed with IV contrast 05/08/16 TECHNIQUE: Multidetector CT. Helical examination of the abdomen and pelvis. Imaging performed without IV contrast. Reformatting in the coronal and sagittal planes. DLP: 1118 mGy-cm Dose optimization was performed including the use of low-dose iterativereconstruction technique with automatic exposure control based on patientsize. Type of contrast: None Volume of IV contrast: None Volume of contrast discarded: 0 mL FINDINGS: LIVER: Liver contour is smooth. No suspicious focal liver lesion. Noadditional liver findings. BILIARY TRACT: The gallbladder is not demonstrated and may be surgicallyabsent. There is no opaque duct calculus. SPLEEN: Normal size. No focal lesion. PANCREAS: No suspicious abnormality. ADRENAL GLANDS: No suspicious abnormality. KIDNEYS: There are multiple fluid attenuating structures in the centralaspect of each kidney. This appears similar to previous. Most of this isrelated to parapelvic cysts. The most proximal ureter is not dilated. There are at least 2 right renal calculi. There are at least 4 small leftrenal calculi. There are some small low attenuating cortical lesions whichare too small to characterize. Statistically these represent cysts. The largest renal calculus in the mid right kidney measures approximately0.4 cm and is 11.8 cm from the skin. There is no ureteral dilation or definite ureteral calculus. URINARY BLADDER: The bladder is nearly empty. No suspiciousabnormality. PELVIC VISCERA: No suspicious abnormality. GASTROINTESTINAL TRACT: Large amount of fecal residue in the colonincluding the cecum which is distended. There is no CT evidence of acuteappendicitis. There is semisolid material in the most distal small bowelwhich can be seen with stasis. No suspicious abnormality of the stomach. ABDOMINAL WALL: No significant hernia is appreciated. LYMPHOVASCULAR STRUCTURES AND FLUID: There is no abdominal aorticaneurysm. There are no enlarged lymph nodes. There is no freeintraperitoneal fluid. VISUALIZED LOWER CHEST: No suspicious abnormality. Minor nonspecific lungbase opacities. MUSCULOSKELETAL: No acute or suspicious osseous abnormality. There areextensive degenerative changes in the visualized spine. There is severeosteoarthritis around the left hip. IMPRESSION: Multiple cysts in the central aspect of each kidney. These parapelviccysts make assessment for dilation of the collecting system difficult butthere is no significant change. There is no ureteral dilation or definiteureteral calculus. Multiple bilateral renal calculi again demonstrated. Large amount of fecal residue distending the proximal colon and semisolidmaterial within the most distal small bowel. -------- FINAL REPORT -------- Dictated By: Taurus Bryan Dictated Date: 05/22/2025 09:49 ET Assigned Physician: Taurus Bryan Reviewed and Electronically Signed By: Taurus Bryan Signed Date: 05/22/2025 10:01 ET Workstation ID: [id number] Transcribed By: Self Edit Transcribed Date: 05/22/2025 09:49 ET Roopa Farias MD IM CT PROCEDURES Final Result * (ABNORMAL) CBC auto differential (05/22/2025 8:22 AM EDT) WBC 5.3 4.8 - 10.8 K/mcL LAB HEMETOLOGY METHOD 05/22/2025 8:37 AM [facility] RBC 4.90(H) 3.80 - 4.80 M/mcL LAB HEMETOLOGY METHOD 05/22/2025 8:37 AM [facility] Hemoglobin 13.2 11.5 - 16.0 g/dL LAB HEMETOLOGY METHOD 05/22/2025 8:37 AM [facility] Hematocrit 42.5 35.0 - 47.0 % LAB HEMETOLOGY METHOD 05/22/2025 8:37 AM [facility] MCV 86.9 79.0 - 98.0 FL LAB HEMETOLOGY METHOD 05/22/2025 8:37 AM [facility] MCH 27.0 27.0 - 32.0 pcg LAB HEMETOLOGY METHOD 05/22/2025 8:37 AM [facility] MCHC 31.1(L) 32.0 - 37.0 g/dL LAB HEMETOLOGY METHOD 05/22/2025 8:37 AM [facility] RDW 14.7 11.0 - 15.0 % LAB HEMETOLOGY METHOD 05/22/2025 8:37 AM [facility] Platelets 209 130 - 400 K/mcL LAB HEMETOLOGY METHOD 05/22/2025 8:37 AM [facility] MPV 11.6(H) 7.0 - 11.0 FL LAB HEMETOLOGY METHOD 05/22/2025 8:37 AM [facility] NRBC 0.0 <1.0 % LAB HEMETOLOGY METHOD 05/22/2025 8:37 AM [facility] NRBC Absolute 0.00 <0.10 K/mcL LAB HEMETOLOGY METHOD 05/22/2025 8:37 AM [facility] Neutrophils Relative 68.5 % LAB HEMETOLOGY METHOD 05/22/2025 8:37 AM [facility] Lymphocytes Relative 21.3 % LAB HEMETOLOGY METHOD 05/22/2025 8:37 AM [facility] Monocytes Relative 6.6 % LAB HEMETOLOGY METHOD 05/22/2025 8:37 AM [facility] Eosinophils Relative 2.6 % LAB HEMETOLOGY METHOD 05/22/2025 8:37 AM [facility] Basophils Relative 0.6 % LAB HEMETOLOGY METHOD 05/22/2025 8:37 AM [facility] Immature Granulocytes Relative 0.4 % LAB HEMETOLOGY METHOD 05/22/2025 8:37 AM [facility] Neutrophils Absolute 3.63 1.50 - 7.00 K/mcL LAB HEMETOLOGY METHOD 05/22/2025 8:37 AM [facility] Lymphocytes Absolute 1.13 1.00 - 5.00 K/mcL LAB HEMETOLOGY METHOD 05/22/2025 8:37 AM EDT [facility] Monocytes Absolute 0.35 0.20 - 1.00 K/mcL LAB HEMETOLOGY METHOD 05/22/2025 8:37 AM EDT [facility] Eosinophils Absolute 0.14 0.00 - 0.50 K/mcL LAB HEMETOLOGY METHOD 05/22/2025 8:37 AM EDT [facility] Basophils Absolute 0.03 0.00 - 0.20 K/mcL LAB HEMETOLOGY METHOD 05/22/2025 8:37 AM EDT [facility] Immature Granulocytes Absolute 0.02 0.00 - 0.03 K/mcL LAB HEMETOLOGY METHOD 05/22/2025 8:37 AM EDT [facility] Blood Venous blood specimen / Unknown Venipuncture / Unknown 05/22/2025 8:22 AM EDT 05/22/2025 8:32 AM EDT us Roopa Farias MD LAB BLOOD ORDERABLES Final Res ult [facility] [address] [place] [address], [place] [phone] * Lipase (05/22/2025 8:22 AM EDT) Lipase 43 13 - 75 unit/L LAB CHEMISTRY METHOD 05/22/2025 9:03 AM EDT [facility] Blood Venous blood specimen / Unknown Venipuncture / Unknown 05/22/2025 8:22 AM EDT 05/22/2025 8:32 AM EDT us Roopa Farias MD LAB BLOOD ORDERABLES Final Res ult [facility] [address] [place] [address], [place] [phone] * Comprehensive metabolic panel (05/22/2025 8:22 AM EDT) Sodium 141 133 - 145 mmol/L LAB CHEMISTRY METHOD 05/22/2025 9:03 AM [facility] Potassium 4.1 3.5 - 5.5 mmol/L LAB CHEMISTRY METHOD 05/22/2025 9:03 AM [facility] Comment:Hemolysis present Chloride 108 96 - 110 mmol/L LAB CHEMISTRY METHOD 05/22/2025 9:03 AM [facility] CO2 27 21 - 32 mmol/L LAB CHEMISTRY METHOD 05/22/2025 9:03 AM [facility] Anion Gap 6 3 - 11 LAB CHEMISTRY METHOD 05/22/2025 9:03 AM [facility] Glucose 94 70 - 100 mg/dL LAB CHEMISTRY METHOD 05/22/2025 9:03 AM [facility] BUN 24 5 - 25 mg/dL LAB CHEMISTRY METHOD 05/22/2025 9:03 AM [facility] Creatinine 1.01 0.50 - 1.10 mg/dL LAB CHEMISTRY METHOD 05/22/2025 9:03 AM [facility] eGFR 61 >=60 mL/min/1. 73m2 LAB CHEMISTRY METHOD 05/22/2025 9:03 AM [facility] Comment:Calculation based on the Chronic Kidney Disease Epidemiology Collaboration (CKD-EPI) equation refit without adjustment for race. BUN/Creatinine Ratio 23.8 LAB CHEMISTRY METHOD 05/22/2025 9:03 AM [facility] Calcium 9.6 8.5 - 10.5 mg/dL LAB CHEMISTRY METHOD 05/22/2025 9:03 AM [facility] AST (SGOT) 19 10 - 42 unit/L LAB CHEMISTRY METHOD 05/22/2025 9:03 AM [facility] Comment:Hemolysis present ALT (SGPT) 22 10 - 60 unit/L LAB CHEMISTRY METHOD 05/22/2025 9:03 AM EDT [facility] Alkaline Phosphatase 97 42 - 121 unit/L LAB CHEMISTRY METHOD 05/22/2025 9:03 AM [facility] Total Protein 7.2 6.0 - 8.0 g/dL LAB CHEMISTRY METHOD 05/22/2025 9:03 AM [facility] Albumin 3.7 3.2 - 5.0 g/dL LAB CHEMISTRY METHOD 05/22/2025 9:03 AM [facility] Total Bilirubin 0.5 0.0 - 1.4 mg/dL LAB CHEMISTRY METHOD 05/22/2025 9:03 AM [facility] Blood Venous blood specimen / Unknown Venipuncture / Unknown 05/22/2025 8:22 AM EDT 05/22/2025 8:32 AM EDT us Roopa Farias MD LAB BLOOD ORDERABLES Final Res ult [facility] [address] [place] [address], [place] [phone] * (ABNORMAL) Urinalysis with reflex microscopic and culture (05/22/2025 8:19 AM EDT) Specific [place] Urine 1.020 1.003 - 1.030 LAB URINALYSIS - AUTOMATED METHOD 05/22/2025 8:40 AM [facility] pH, Urine 6.0 5.0 - 8.0 pH LAB URINALYSIS - AUTOMATED METHOD 05/22/2025 8:40 AM [facility] Leukocytes, Urine Large(A) Negative LAB URINALYSIS - AUTOMATED METHOD 05/22/2025 8:40 AM [facility] Nitrite, Urine Negative Negative LAB URINALYSIS - AUTOMATED METHOD 05/22/2025 8:40 AM [facility] Protein, Urine Trace <=Trace mg/dL LAB URINALYSIS - AUTOMATED METHOD 05/22/2025 8:40 AM [facility] Glucose, Urine Negative Negative mg/dL LAB URINALYSIS - AUTOMATED METHOD 05/22/2025 8:40 AM [facility] Ketones, Urine Negative Negative mg/dL LAB URINALYSIS - AUTOMATED METHOD 05/22/2025 8:40 AM [facility] Urobilinogen, Urine 1.0 0.2 - 1.0 mg/dL LAB URINALYSIS - AUTOMATED METHOD 05/22/2025 8:40 AM [facility] Bilirubin, Urine Negative Negative LAB URINALYSIS - AUTOMATED METHOD 05/22/2025 8:40 AM [facility] Blood, Urine Negative Negative LAB URINALYSIS - AUTOMATED METHOD 05/22/2025 8:40 AM [facility] RBC, Urine 2.8 0 - 4 /HPF LAB URINALYSIS - AUTOMATED METHOD 05/22/2025 8:40 AM [facility] WBC, Urine 38.7(H) 0 - 4 /HPF LAB URINALYSIS - AUTOMATED METHOD 05/22/2025 8:40 AM [facility] Squamous Epithelial, Urine 46 0 - 60 /LPF LAB URINALYSIS - AUTOMATED METHOD 05/22/2025 8:40 AM [facility] Bacteria, Urine Negative Negative /HPF LAB URINALYSIS - AUTOMATED METHOD 05/22/2025 8:40 AM [facility] Hyaline Casts, Urine 2.4 0 - 3 /LPF LAB URINALYSIS - AUTOMATED METHOD 05/22/2025 8:40 AM [facility] Urine Urine specimen obtained by clean catch procedure / Unknown Non-blood Collection / Unknown 05/22/2025 8:19 AM EDT 05/22/2025 8:32 AM EDT us Roopa Farias MD LAB URINE ORDERABLES Final Res ult Performing Organization Address City/[facility]/ZIP Co de Phone Number [facility] [address] [place] [address], * Scott urine culture tube (05/22/2025 8:19 AM EDT) Extra Tube Hold for add-ons. 05/22/2025 10:01 AM EDT [facility] Comment:Auto resulted. Urine Urine specimen obtained by clean catch procedure / Unknown Non-blood Collection / Unknown 05/22/2025 8:19 AM EDT 05/22/2025 8:32 AM EDT Roopa Farias MD LAB URINE ORDERABLES Final Res ult Performing Organization Address [facility]/RUST de Phone Number [facility] [address] [place] [address], * (ABNORMAL) Culture urine (05/22/2025 8:19 AM EDT) Culture, Urine 50,000-100,000 CFU/mL Streptococcus beta-hemolytic Group B(A) 05/23/2025 1:30 PM EDT [facility] Comment: Susceptibility testing is not routinely performed for Beta Streptococcus isolates since these organisms are predictably sensitive to Penicillin. If the Patient is not responding, is allergic to Penicillin, or further therapeutic information is requir ed, please consult an Infectious Disease Specialist. Urine Urine specimen obtained by clean catch procedure / Unknown Non-blood Collection / Unknown 05/22/2025 8:19 AM EDT 05/22/2025 8:40 AM EDT us Roopa Farias MD LAB MICROBIOLOGY - GENERAL ORD ERABLES Final Result Performing Organization Address [facility]/ZIP Co de Phone Number [facility] [address] [place] [address], * ABBEY SCREENING DIGITAL (05/28/2023 9:17 AM EDT) Anatomical Region Laterality Modality Mammography 05/28/2023 8:01 AM EDT Narrative 05/28/2023 9:[address] [facility] Diagnostic Imaging Department [address] [place] [id number] Patient: ETHELSergeyALEXANDRA /Age/Sex: 1960 - 63 - F Unit#: [id number] Location/Status: SPDIMA/REG CLI Mnemonic/Ordering Site: [facility] Ordering Physician: DEVANG WILLIS MD [facility] Screening Digital - 05/28/23830 Report Status:Signed EXAM: [facility] Screening Digital EXAM DATE AND TIME: 05/28/2023 8:32 AM HISTORY: Annual screening COMPARISON: 10/15/2021, 07/20/2019, 08/14/2017 TECHNIQUE: Bilateral digital breast tomosynthesis was performed in the CC and MLO projections. Computer aided detection with [employer] 3D 3.1 was employed. TISSUE DENSITY: a. [...] 05/28/23916 Procedure Note Emiliana Dominique - 10/27/2023 [facility] Diagnostic Imaging Department [address] [place] [id number] Patient: ALEXANDRA DAVENPORT /Age/Sex: 1960 - 63 - F Unit#: [id number] [facility] Ordering Physician: DEVANG WILLIS MD [facility] Screening Digital - 05/28/23 - 830 Report Status:Signed EXAM: [facility] Screening Digital EXAM DATE AND TIME: 05/28/2023 8:32 AM HISTORY: Annual screening COMPARISON: 10/15/2021, 07/20/2019, 08/14/2017 TECHNIQUE: Bilateral digital breast tomosynthesis was performed in the CCand MLO projections. Computer aided detection with [employer] 3D 3.1was employed. TISSUE DENSITY: a. The [...] screening mammogram BILATERAL in 1 year. 3341F, 7010F Dictating Physician: EMIILANA DOMINIQUE MD Electronically Signed by: EMILIANA DOMINIQUE MD Dic Date/Time: 05/28/23914 Sign date/Time: 05/28/23916 Devang Willis MD IMG BI PROCEDURES Final Re sult from Last 3 Months or Most Recently Relevant to Health Maintenance Insurance [employer] Member Subscriber Plan / Payer (Ef fective 2023-Present) Name:ALEXANDRA DAVENPORT Relation to Subscriber:Self Name:Alexandra Davenport Payer ID:[id number] Group ID:[id number] Type:Not on file Address: [place] [address] [place] [place] [id number] Care Teams Transmissions Systems Operator Relationship Specialty Start Date End Date Robles Buchanan MD [address] [place] [id number] PCP - General Internal Medicine 05/22/25
== END 2025-08-09 09:13 | disposition home or self-care (01) ==
LOC: HO.HKAS 08:49
PROVIDERS: PCP Internal Medicine; Visit Provider Internal Medicine Hypertension Specialist
DX: I10 Essential (primary) hypertension (principal); N13.30 Unspecified hydronephrosis; E66.812 Obesity, class 2; E66.01 Morbid (severe) obesity due to excess calories; Z68.38 Body mass index [BMI] 38.0-38.9, adult; N20.0 Calculus of kidney
CPT/HCPCS: 99214

== ENCOUNTER → 2025-08-09 08:48 | Outpatient (BNVA) | payer OTHER, SELFPAY | PROVIDERS: PCP Internal Medicine; Visit Provider Internal Medicine Hypertension Specialist | DX: I10 Essential (primary) hypertension (principal); N18.30 Chronic kidney disease, stage 3 unspecified; E66.01 Morbid (severe) obesity due to excess calories; E66.812 Obesity, class 2; Z68.38 Body mass index [BMI] 38.0-38.9, adult | CPT/HCPCS: 99212 ==